=== PATIENT | male | born 1935 | race Caucasian/White ===

== ENCOUNTER 2016-03-03 01:34 | Emergency (ER) | payer OTHER ==
--- NOTE | 2016-03-03 01:51 | PDOC ---
History of Present Illness - General History Source: EMS <Drake Tony - Last Filed: 03/03/16 05:37> - General History Source: Patient, EMS, [facility] Records Exam Limitations: Clinical Condition - History of Present Illness Initial Comments: 03/03/16 02:01 The patient is a 80-year-old male, with a significant past medical history of hypertension, COPD, coronary artery disease, GERD, anxiety, and dementia, who presents to the emergency department via EMS sent from [facility] head laceration s/p unwitnessed fall this evening. Per patient, he did not experience any LOC secondary to head trauma. As per nursing staff, they heard a crash in the patients room and immediately came in, but they are unsure why he fell or what he hit his head on. Nursing staff report the patient was able to get right back up on his own, and was moving his head around after the fall. Once EMS arrived on scene, they placed a collar around his neck. The patient currently reports no pain. He denies any fever, chills, cough, headache , dizziness, or syncope. He denies chest pain, diaphoresis, palpitations, and shortness of breath. The patient reports he is currently taking aspirin. Allergies: Penicillins Past Surgical History: Appendectomy Social History: Non-smoker. Denies alcohol or drug use. PCP: Dr. Levar Alegria ([phone]) <Urvashi Ny - Last Filed: 03/03/16 05:48> - General Stated Complaint: FALL/LACERATION Time Seen by Provider: 03/03/16 01:50 Past History - Past Medical History Cardiac Disorders: Yes COPD: Yes Dementia: Yes GI Disorders: Yes HTN: Yes Psychiatric Problems: Yes (depressive, anxiety) - Surgical History Appendectomy: Yes - Psycho/Social/Smoking Cessation Hx Suicidal Ideation: No Smoking History: Unknown if ever smoked Have you smoked in the past 12 months: No Hx Alcohol Use: No Drug/Substance Use Hx: No Substance Use Type: None Hx Substance Use Treatment: No <Drake Tony - Last Filed: 03/03/16 05:37> <Urvashi Ny - Last Filed: 03/03/16 05:48> - Past Medical History Allergies/Adverse Reactions: Allergies Allergy/AdvReac Type Severity Reaction Status Date / Time Penicillins Allergy Verified 01/27/16 18:25 Home Medications: Ambulatory Orders Acetaminophen [Tylenol] 650 mg PO QID PRN 01/27/16 Aspirin [ASA -] 81 mg PO DAILY 01/27/16 Clonazepam [Klonopin -] 0.5 mg PO BID 01/27/16 Clotrimazole [Lotrimin -] 1 applic TP BID 01/27/16 Docusate Sodium [Colace -] 200 mg PO DAILY 01/27/16 Isosorbide Mononitrate [Imdur -] 30 mg PO DAILY 01/27/16 Omeprazole Magnesium [Prilosec] 20 mg PO DAILY 01/27/16 Propylene Glycol/Peg 400/Pf [Systane 0.3-0.4% Eye Drops] 2 each OP TID 01/27/16 Quetiapine Fumarate "Xr" [Seroquel XR] 12.5 mg PO DAILY 01/27/16 Quetiapine Fumarate [Seroquel -] 25 mg PO BID 01/27/16 Venlafaxine HCl ER [Effexor Xr -] 37.5 mg PO BID 01/27/16 Albuterol 0.083% Nebulizer Madeleine [Ventolin 0.083% Nebulizer Soln -] 1 amp NEB Q4H PRN #0 amp 02/02/16 Aa/Hydrolyzed Collagen, Whey [Lps Neutral Flavor Liquid] 30 ml PO TID 03/03/16 Oseltamivir Phosphate [Tamiflu] 75 mg PO DAILY 03/03/16 Review of Systems - Review of Systems Able to Perform ROS?: Yes (limited due to AMS) Comments:: 03/03/16 02:02 CONSTITUTIONAL: Absent: fever, chills, diaphoresis, generalized weakness, malaise, loss of appetite HEENT: Present: +Head laceration Absent: rhinorrhea, nasal congestion, throat pain, throat swelling, difficulty swallowing, mouth swelling, ear pain, eye pain, visual changes CARDIOVASCULAR: Absent: chest pain, syncope, palpitations, irregular heart rate, lightheadedness , peripheral edema RESPIRATORY: Absent: cough, shortness of breath, dyspnea with exertion, orthopnea, wheezing, stridor, hemoptysis GASTROINTESTINAL: Absent: abdominal pain, abdominal distension, nausea, vomiting, diarrhea, constipation, melena, hematochezia GENITOURINARY: Absent: dysuria, frequency, urgency, hesitancy, hematuria, flank pain, genital pain MUSCULOSKELETAL: Absent: myalgia, arthralgia, joint swelling SKIN: Absent: rash, itching, pallor HEMATOLOGIC/IMMUNOLOGIC: Absent: easy bleeding, easy bruising, lymphadenopathy, frequent infections ENDOCRINE: Absent: unexplained weight gain, unexplained weight loss, heat intolerance, cold intolerance NEUROLOGIC: Absent: headache, focal weakness or paresthesias, dizziness, unsteady gait, seizure, mental status changes, bladder or bowel incontinence PSYCHIATRIC: Absent: anxiety, depression, suicidal or homicidal ideation, hallucinations. <Urvashi Ny - Last Filed: 03/03/16 05:48> *Physical Exam - Physical Exam Comments: 03/03/16 02:02 GENERAL: Well developed, well nourished. Awake, alert and oriented to self. No acute distress. HEENT: +2cm laceration on back of the scalp with surrounding edema. PERRLA, EOMI. No conjunctival pallor. Sclera are non-icteric. Moist mucous membranes. Oropharynx is clear. NECK: Supple. Full ROM. No JVD. Carotid pulses 2+ and symmetric, without bruits. No thyromegaly. No lymphadenopathy. CARDIOVASCULAR: +Hypertensive. No murmurs, rubs, or gallops. Distal pulses are 2+ and symmetric. PULMONARY: No evidence of respiratory distress. Lungs clear to auscultation bilaterally. No wheezing, rales or rhonchi. ABDOMINAL: Soft. Non-tender. Non-distended. No rebound or guarding. No organomegaly. Normoactive bowel sounds. MUSCULOSKELETAL Normal range of motion at all joints. No bony deformities or tenderness. No CVA tenderness. EXTREMITIES: No cyanosis. No clubbing. No edema. No calf tenderness. SKIN: Warm and dry. Normal capillary refill. No rashes. No jaundice. NEUROLOGICAL: Alert, awake, appropriate. Cranial nerves 2-12 intact. No deficits to light touch and temperature in face, upper extremities and lower extremities. No motor deficits in the in face, upper extremities and lower extremities. Normoreflexic in the upper and lower extremities. Normal speech. Toes are down- going bilaterally. Gait is normal without ataxia. PSYCHIATRIC: Cooperative. Good eye contact. Appropriate mood and affect. <Urvashi Ny - Last Filed: 03/03/16 05:48> Procedures - Laceration/Wound Repair Head Wound Length: to 2.5 cm Wound Explored: clean Wound's Depth, Shape: superficial Irrigated w/ Saline: Yes Wound Repaired With: [place] (4) Progress: 03/03/16 04:59 Pt tolerated procedure well. <GilbertraDrake - Last Filed: 03/03/16 05:37> ED Treatment Course - LABORATORY CBC & Chemistry Diagram: 03/03/16 02:38 03/03/16 04:00 <ChavoDrake - Last Filed: 03/03/16 05:37> - LABORATORY CBC & Chemistry Diagram: 03/03/16 02:38 03/03/16 04:00 - RADIOLOGY Radiograph Interpretation: 03/03/16 05:44 EXAM: CXR INTERPRETED BY: Dr. Dinh REVIEWED BY: Dr. Tony IMPRESSION: Nonspecific elevation of left hemidiaphragm. Patchy left lower lobe opacities may represent atelectasis, aspiration and/or pneumonia. Coexisting small pleural effusion cannot be excluded. Age-indeterminate fracture deformity of right lateral sixth, seventh and eighth ribs. Correlate with physical exam. No pneumothorax. Nonspecific distended loops of bowel seen. EXAM: Pelvis Radiograph INTERPRETED BY: Dr. Dinh REVIEWED BY: Dr. Tony IMPRESSION: Diffuse osteopenia which limits assessment of nondisplaced fractures. Evaluation of sacrum is further limited due to overlying fecal content in the rectosigmoid region. Sequela of right hip arthroplasty. The femoral component of the prosthesis appears positioned within the acetabulum component. However, evaluation for prosthesis alignment is suboptimal due to patient rotation. Cerclage wires surrounding the prosthesis noted. Severely comminuted fracture deformity of the visualized proximal right femur with overlying callus formation. Acute on chronic fracture cannot be excluded. Age- indeterminate fracture of the right superior and inferior pubic rami. Arthrosis of the spine, bilateral sacroiliac joint and left hip. Possible constipation with fecal impaction. Correlate clinically. EXAM: Head CT INTERPRETED BY: Dr. Brasher REVIEWED BY: Dr. Tony IMPRESSION: No hemorrhage or fracture. EXAM: Cervical Spine CT without contrast INTERPRETED BY: Dr. Brasher REVIEWED BY: Dr. Tony IMPRESSION: There is no fracture or facet subluxation. No prevertebral hematoma or gross acute epidural abnormality. Multilevel spondylosis/disc-ridges and facet/uncovertebral arthropathy with mild presumed degenerative C3/4 retrolisthesis; alignment is otherwise anatomic for the visualized volume, from skull base to the visualized portion of T3/4, accounting for the degenerative ridging/calcifications. <Urvashi Ny - Last Filed: 03/03/16 05:48> Medical Decision Making - Medical Decision Making 03/03/16 05:00 Dr. Tony: The scribe's documentation has been prepared under my direction and personally reviewed by me in its entirery. I confirm that the note above accurately reflects all work, treatment, procedures, and medical decision making performed by me. 03/03/16 05:38 spoke to Isaiah (nurse) at the unit where pt lives at [facility]. Advised him that all studies including Ct scan of head and C-spine were negative. Baudilio placed to close wound. Pt to return to [facility] <Drake Tony - Last Filed: 03/03/16 05:37> *DC/Admit/Observation/Transfer - Discharge Dispostion Admit: No <Drake Tony - Last Filed: 03/03/16 05:37> - Attestations Scribe Attestion: 03/03/16 02:08 Documentation prepared by Urvashi Ny, acting as faculty i on call medical assistant for Drake Tony DO. <Urvashi Ny - Last Filed: 03/03/16 05:48> Diagnosis at time of Disposition: Fall Qualifiers: Encounter type: initial encounter Qualified Code(s): W19.XXXA - Unspecified fall, initial encounter Scalp laceration Qualifiers: Encounter type: initial encounter Qualified Code(s): S01.01XA - Laceration without foreign body of scalp, initial encounter - Discharge Dispostion Disposition: HOME Condition at time of disposition: Stable - Referrals Referrals: Levar Alegria [Primary Care Provider] - - Patient Instructions Printed Discharge Instructions: DI for Closed Head Injury, DI for Laceration Repair -- Baudilio Additional Instructions: Keep wound clean and dry. Wash with soap and water. Have baudilio removed in 5- 7 days
[2016-03-03 02:07] VITALS: BP 176/84; PULSE 74; TEMP 97.9; BMI 19.3
[2016-03-03 02:51] LABS: BASOPHIL 0.3 % (0-2.0); EOSINOPHIL 0.6 % (0-4.5); MCHC 33.9 g/dl (32.0-35.9); MEAN CELL VOLUME 97.1 fl (80-96); MEAN PLT VOLUME 8.8 fl (7.5-11.1); NEUTROPHILS 71.1 % (42.8-82.8); PLATELET COUNT 191 K/MM3 (134-434); RDW 13.7 % (11.9-15.9); WHITE BLOOD COUNT 10.6 K/mm3 (4.0-10.0)
[2016-03-03 03:42] LABS: INR 1.27 (0.82-1.09)
[2016-03-03] MEDS ORDERED: morphine CARPU-JECT 2 MG/1 ML DISP.SYRIN IVPUSH ONE (03:56)
[2016-03-03] MEDS ORDERED: FUROSEMIDE 40 MG/4 ML INJECTABLE VIAL IVPUSH ONE (03:56)
[2016-03-03] MEDS ORDERED: morphine CARPU-JECT 2 MG/1 ML DISP.SYRIN ONE (04:02)
[2016-03-03] MEDS ORDERED: FUROSEMIDE 40 MG/4 ML INJECTABLE VIAL ONE (04:03)
[2016-03-03 04:47] LABS: ALBUMIN 3.7 g/dl (3.4-5.0); ALK PHOS 94 U/L (45-117); ANION GAP 10 (8-16); BILIRUBIN,TOTAL 1.1 mg/dL (0.2-1.0); CALCIUM 9.1 mg/dL (8.5-10.1); CO2 31 mmol/L (21-32); CREATININE 0.8 mg/dL (0.7-1.3); GLUCOSE,RANDOM 86 mg/dL (74-106); SGOT/AST 22 U/L (15-37); SGPT/ALT 14 U/L (12-78); TOT PROT 7.2 g/dl (6.4-8.2)
== END 2016-03-03 06:55 | disposition home or self-care (01) ==
LOC: JER 01:34
PROC: 0HQ0XZZ Repair Scalp Skin, External Approach (ICD-10-PCS; principal; 2016-03-03)
PROC: 3E033NZ Introduction of Analgesics, Hypnotics, Sedatives into Peripheral Vein, Percutaneous Approach (ICD-10-PCS; 2016-03-03)
PROC: 3E033GC Introduction of Other Therapeutic Substance into Peripheral Vein, Percutaneous Approach (ICD-10-PCS; 2016-03-03)
DX: S01.01XA Laceration without foreign body of scalp, initial encounter (principal); I10 Essential (primary) hypertension; J44.9 Chronic obstructive pulmonary disease, unspecified; F41.8 Other specified anxiety disorders; F03.90 Unspecified dementia, unspecified severity, without behavioral disturbance, psychotic disturbance, mood disturbance, and anxiety; W18.39XA Other fall on same level, initial encounter; Y93.89 Activity, other specified; Y92.122 Bedroom in nursing home as the place of occurrence of the external cause
CPT/HCPCS: 12001-25; 36415; 70450-TC; 71010-TC; 72125-TC; 72170-TC; 80053; 85025; 85610; 86850; 86900; 86901; 96374; 96375; 99281-25

== ENCOUNTER 2017-04-12 20:08 | Observation (INO) | payer OTHER ==
--- NOTE | 2017-04-12 20:18 | PDOC ---
History of Present Illness - General History Source: Patient, Old Records Exam Limitations: No Limitations - History of Present Illness Initial Comments: 04/12/17 21:55 Patient is an 80 year old male with a significant past medical history of hypertension, COPD, coronary artery disease, GERD, anxiety, and dementia, who presents to the ED s/p fall that occurred just prior to ED arrival. Patient reports attempting to get out of bed tonight when he lost his balance leading him to fall onto the floor causing immediate pain. As per [facility] staff, patient's fall was unwitnessed but was sent to the ED for further evaluation. Patient does not state if he experienced any head trauma due to fall. Denies chest pain, Sob. Denies nausea, vomiting. Denies fevers, chills. Denies contact with sick individuals, out of state travelling. Denies any other symptoms. Allergies: Penicillins Past Surgical History: Appendectomy Social History: Non-smoker. Denies alcohol or drug use. PCP: Dr. Levar Alegria ([phone]) <Israel Gao - Last Filed: 04/12/17 21:54> <Comfort Laughlin - Last Filed: 04/13/17 05:09> - General Chief Complaint: Injury Stated Complaint: FALL Past History <Israel Gao - Last Filed: 04/12/17 21:54> - Past Medical History Cardiac Disorders: Yes COPD: Yes Dementia: Yes GI Disorders: Yes HTN: Yes Psychiatric Problems: Yes (depressive, anxiety) - Surgical History Appendectomy: Yes - Suicide/Smoking/Psychosocial Hx Smoking History: Never smoked Have you smoked in the past 12 months: No Information on smoking cessation initiated: No Hx Alcohol Use: No Drug/Substance Use Hx: No Substance Use Type: None Hx Substance Use Treatment: No <Comfort Laughlin - Last Filed: 04/13/17 05:09> - Past Medical History Allergies/Adverse Reactions: Allergies Allergy/AdvReac Type Severity Reaction Status Date / Time Penicillins Allergy Verified 04/12/17 20:13 Home Medications: Ambulatory Orders Acetaminophen [Tylenol] 650 mg PO QID PRN 01/27/16 Aspirin [ASA -] 81 mg PO DAILY 01/27/16 Docusate Sodium [Colace -] 200 mg PO HS 12/15/16 Isosorbide Mononitrate [Imdur -] 30 mg PO DAILY 01/27/16 Omeprazole Magnesium [Prilosec] 20 mg PO DAILY 01/27/16 Quetiapine Fumarate [Seroquel -] 25 mg PO HS 01/27/16 Venlafaxine HCl ER [Effexor Xr -] 37.5 mg PO BID 01/27/16 clonazePAM [Klonopin -] 0.5 mg PO BID 01/27/16 Albuterol 0.083% Nebulizer Madeleine [Ventolin 0.083% Nebulizer Soln -] 1 amp NEB Q4H PRN #0 amp 02/02/16 Aa/Hydrolyzed Collagen, Whey [Lps Neutral Flavor Liquid] 30 ml PO TID 03/03/16 Cholecalciferol (Vitamin D3) [Vitamin D3 -] 1,000 unit PO DAILY 04/12/17 Propylene Glycol/Peg 400/Pf [Systane 0.3-0.4% Eye Drops] 2 drop OU TID 04/12/17 Review of Systems - Review of Systems Able to Perform ROS?: Yes Comments:: 04/12/17 21:55 GENERAL/CONSTITUTIONAL: No fever or chills. No weakness. HEAD, EYES, EARS, NOSE AND THROAT: No change in vision. No ear pain or discharge. No sore throat. CARDIOVASCULAR: No chest pain or shortness of breath. RESPIRATORY: +Coughing. No wheezing, or hemoptysis. GASTROINTESTINAL: No nausea, vomiting, diarrhea or constipation. GENITOURINARY: No dysuria, frequency, or change in urination. MUSCULOSKELETAL: No joint or muscle swelling or pain. No neck or back pain. SKIN:+Bilateral leg bruising. +Bilateral chest bruising. NEUROLOGIC: No headache, vertigo, loss of consciousness, or change in strength/ sensation. ENDOCRINE: No increased thirst. No abnormal weight change. HEMATOLOGIC/LYMPHATIC: No anemia, easy bleeding, or history of blood clots. ALLERGIC/IMMUNOLOGIC: No hives or skin allergy. All Other Systems: Reviewed and Negative <Israel Gao - Last Filed: 04/12/17 21:54> *Physical Exam - Vital Signs Last Vital Signs Temp Pulse Resp BP Pulse Ox 97.3 F L 71 20 104/72 97 04/12/17 20:13 04/12/17 20:13 04/12/17 20:13 04/12/17 20:13 04/12/17 20:13 - Physical Exam Comments: 04/12/17 21:55 GENERAL: +Cachectic Awake, alert, and fully oriented, in no acute distress HEAD: No signs of trauma EYES: PERRLA, EOMI, sclera anicteric, conjunctiva clear ENT: +Dry mouth. Auricles normal inspection, hearing grossly normal, nares patent, oropharynx clear without exudates. NECK: Normal ROM, supple, no lymphadenopathy, JVD, or masses LUNGS: Breath sounds equal, clear to auscultation bilaterally. No wheezes, and no crackles HEART: +referred abdominal sounds in left chest. Regular rate and rhythm, normal S1 and S2, no murmurs, rubs or gallops ABDOMEN: Soft, nontender, normoactive bowel sounds. No guarding, no rebound. No masses PELVIS: +Prominent hip bones EXTREMITIES: +Contractures. +Right knee arthritis. +Right medial finley bruising. Normal range of motion, no edema. No clubbing or cyanosis. No cords, erythema, or tenderness NEUROLOGICAL: +AAOx2 Cranial nerves II through XII grossly intact. Normal speech, normal gait SKIN: +Bilateral chest bruises. Warm, Dry, normal turgor. <Israel Gao - Last Filed: 04/12/17 21:54> - Vital Signs Last Vital Signs Temp Pulse Resp BP Pulse Ox 97.3 F L 71 20 104/72 97 04/12/17 20:13 04/12/17 20:13 04/12/17 20:13 04/12/17 20:13 04/12/17 20:13 <Comfort Laughlin - Last Filed: 04/13/17 05:09> ED Treatment Course - LABORATORY CBC & Chemistry Diagram: 04/12/17 22:11 04/12/17 22:11 <Comfort Laughlin - Last Filed: 04/13/17 05:09> Medical Decision Making - Medical Decision Making 04/12/17 21:24 Pt comes after fall at the [facility]. He is distressed, as he realizes that he is stuck in bed forever, with leg contractures and cannot walk. He states "I am broken," and "I cannot walk." Pt has no complaint of pain anywhere specific on his body. He has old bruises that are greenish yellow in various stages of healing. Pt has no specifica complaints of pain. We will get basic labs and hydrate patient. If labs are normal, he may return to the [facility]. He is alert to person and time. 04/13/17 05:07 Pt has a UTI, as well as elevated troponin. I ordered a troponin originally, as pt was found on the floor at the [facility], and it was unclear to me if he had a cardiac event. Pt has a relatively normal ST-T wave in all leads. He has an unspecified interventricular conduction delay. 04/13/17 05:08 Pt has been admitted to the hospitalist <Comfort Laughlin - Last Filed: 04/13/17 05:09> *DC/Admit/Observation/Transfer - Attestations Scribe Attestion: 04/12/17 21:55 Documentation prepared by Israel Gao, acting as expert medical writer for Comfort Laughlin MD/DO. <Israel Gao - Last Filed: 04/12/17 21:54> - Discharge Dispostion Admit: Yes <Comfort Laughlin - Last Filed: 04/13/17 05:09> Diagnosis at time of Disposition: UTI (urinary tract infection), Elevated troponin, Syncope - Discharge Dispostion Condition at time of disposition: Poor
[2017-04-12] MEDS ORDERED: SODIUM CHLORIDE 0.9% 500 ML INFUS.BAG IV ONE (21:35)
[2017-04-12 22:23] LABS: BASO % 0.4 % (0-2.0); EOS % 0.4 % (0-4.5); HEMATOCRIT 46.8 % (35.4-49); HEMOGLOBIN 15.8 GM/dL (11.7-16.9); LYMPH % 19.7 % (8-40); MCHC 33.8 g/dl (32.0-35.9); MEAN CELL VOLUME 100.5 fl (80-96); MONO % 9.3 % (3.8-10.2); NEUT % 70.2 % (42.8-82.8); PLATELET COUNT 227 K/MM3 (134-434); RBC 4.66 M/mm3 (4.00-5.60); RDW 14.5 % (11.9-15.9); WHITE BLOOD COUNT 11.3 K/mm3 (4.0-10.0)
[2017-04-12 22:39] LABS: URINE APPEARANCE CLOUDY; URINE BLOOD NEGATIVE (NEGATIVE); URINE COLOR AMBER; URINE GLUCOSE (UA) NEGATIVE (NEGATIVE); URINE KETONE TRACE (NEGATIVE); URINE NITRITE NEGATIVE (NEGATIVE); URINE UROBILINOGEN 4.0 E.U/dl mg/dL (0.2-1.0)
[2017-04-12 22:42] LABS: URINE LEUK ESTERASE 3+ (NEGATIVE); URINE PROTEIN 1+ (NEGATIVE)
[2017-04-12 22:43] LABS: EPI CELLS RARE /HPF (FEW); URINE BACTERIA RARE /hpf (NONE SEEN); URINE HYALINE CAST 9 /lpf; URINE MUCUS RARE
[2017-04-12 22:50] LABS: ALBUMIN 3.6 g/dl (3.4-5.0); ALK PHOS 96 U/L (45-117); ANION GAP 12 (8-16); BLOOD UREA NITROGEN 38 mg/dL (7-18); CALCIUM 9.2 mg/dL (8.5-10.1); CHLORIDE 106 mmol/L (98-107); CO2 26 mmol/L (21-32); CREATININE 1.3 mg/dL (0.7-1.3); GLUCOSE,RANDOM 106 mg/dL (74-106); SGPT/ALT 13 U/L (12-78); SODIUM 144 mmol/L (136-145); TOT PROT 7.7 g/dl (6.4-8.2)
[2017-04-12 22:52] LABS: POTASSIUM 4.4 mmol/L (3.5-5.1); SGOT/AST 28 U/L (15-37)
--- NOTE | 2017-04-13 01:34 | HP ---
CHIEF COMPLAINT: S/p unwitnessed fall x 1 day PCP: Dr. Levar Tavera HISTORY OF PRESENT ILLNESS: Pt is an 80 yo M with a signif PMHx of dementia and anxiety, HTN, COPD (2-3L O2), CAD, GERD, BIBEMS from formerly [facility] s/p unwitnessed fall today. There was no one by the bedside and pt initially did not know why he was brought to hospital. Pt acknowledged a hx of repeated falls due to his being "crippled". He was however unable to expand on the etiology of his paresis or recall the recent fall. Pt at baseline uses a wheelchair to ambulate. He endorsed dysuria, but denied fever, cough or chest pain. Pt was said to be attempting to get out of bed when he fell. Based on medical records , it was an unwitnessed fall and it is unknown whether or not he hit his head. Based on [place] records, Pt is on ASA. Pt is DNR- based on records from the [place]. ER course was notable for: (1) WBC- 11.3, trops-0.13, Tmax-97.3, 71, 104/72, NC (2) BUN/Cr-38/1.3, UA-3+ LE, 448 WBC (3)iv normal saline, iv levoflox 500mg given (4) EKG- Sinus rhythm with 1st degree AV block, QTc-469 Recent Travel: None PAST MEDICAL HISTORY: dementia and anxiety, HTN, COPD, CAD, GERD PAST SURGICAL HISTORY: Appendectomy Social History: Smoking: None Alcohol:None Drugs: None Family History: Allergies Penicillins Allergy (Verified 04/12/17 20:13) HOME MEDICATIONS: Home Medications Medication Instructions Recorded Acetaminophen [Tylenol] 650 mg PO QID PRN 01/27/16 Aspirin [ASA -] 81 mg PO DAILY 01/27/16 Docusate Sodium [Colace -] 200 mg PO HS 01/27/16 Isosorbide Mononitrate [Imdur -] 30 mg PO DAILY 01/27/16 Omeprazole Magnesium [Prilosec] 20 mg PO DAILY 01/27/16 Quetiapine Fumarate [Seroquel -] 25 mg PO HS 01/27/16 Venlafaxine HCl ER [Effexor Xr -] 37.5 mg PO BID 01/27/16 clonazePAM [Klonopin -] 0.5 mg PO BID 01/27/16 Albuterol 0.083% Nebulizer Madeleine 1 amp NEB Q4H PRN #0 amp 02/02/16 [Ventolin 0.083% Nebulizer Soln -] Aa/Hydrolyzed Collagen, Whey [Lps 30 ml PO TID 03/03/16 Neutral Flavor Liquid] Cholecalciferol (Vitamin D3) 1,000 unit PO DAILY 04/12/17 [Vitamin D3 -] Propylene Glycol/Peg 400/Pf 2 drop OU TID 04/12/17 [Systane 0.3-0.4% Eye Drops] REVIEW OF SYSTEMS CONSTITUTIONAL: Absent: fever, chills, diaphoresis, generalized weakness, malaise, loss of appetite, weight change HEENT: Absent: rhinorrhea, nasal congestion, throat pain, throat swelling, difficulty swallowing, mouth swelling, ear pain, eye pain, visual changes CARDIOVASCULAR: Absent: chest pain, syncope, palpitations, irregular heart rate, lightheadedness , peripheral edema RESPIRATORY: Absent: cough, shortness of breath, dyspnea with exertion, orthopnea, wheezing, stridor, hemoptysis GASTROINTESTINAL: Absent: abdominal pain, abdominal distension, nausea, vomiting, diarrhea, constipation, melena, hematochezia GENITOURINARY: Absent: dysuria, frequency, urgency, hesitancy, hematuria, flank pain, genital pain MUSCULOSKELETAL: Absent: myalgia, arthralgia, joint swelling, back pain, neck pain SKIN: Absent: rash, itching, pallor HEMATOLOGIC/IMMUNOLOGIC: Absent: easy bleeding, easy bruising, lymphadenopathy, frequent infections ENDOCRINE: Absent: unexplained weight gain, unexplained weight loss, heat intolerance, cold intolerance NEUROLOGIC: Absent: headache, focal weakness or paresthesias, dizziness, unsteady gait, seizure, mental status changes, bladder or bowel incontinence PSYCHIATRIC: Absent: anxiety, depression, suicidal or homicidal ideation, hallucinations. PHYSICAL EXAMINATION Vital Signs - 24 hr 04/12/17 04/12/17 20:13 22:15 Temperature 97.3 F L Pulse Rate 71 Respiratory 20 Rate Blood Pressure 104/72 O2 Sat by Pulse 97 94 L Oximetry (%) GENERAL: Awake, alert, and oriented to person, to place, in no acute distress. No tender bony prominences HEAD: Normal with no signs of trauma. EYES: Pupils equal, round and reactive to light, extraocular movements intact, sclera anicteric, conjunctiva clear. EARS, NOSE, THROAT: oropharynx clear without exudates. Moist mucous membranes. NECK: no JVD, or masses. LUNGS: Breath sounds equal, clear to auscultation bilaterally. No wheezes, and no crackles. HEART: Regular rate and rhythm, normal S1 and S2 without murmur, rub or gallop. ABDOMEN: R flank greenish/erythematous bruise, Scaphoid abdomen, nontender, bowel sounds+ MUSCULOSKELETAL: Increased tone bilateral LE. Tender, warm, swollen R finley, fluctuant 5mmx 3mm. UPPER EXTREMITIES: R forearm, greenish bruise 2+ pulses, warm, well-perfused. No peripheral edema. Strength 5/5, normal tone bilaterally. Normal sensation LOWER EXTREMITIES: 2+ pulses, warm, well-perfused. No calf tenderness. No peripheral edema. Normal sensation. Increased tone bilateral LE. Tender, warm, swollen R finley,fluctuant 5mmx 3mm. NEUROLOGICAL: No facial droop. Normal speech. gait not observed. PSYCHIATRIC: Unable to assess Laboratory Results - last 24 hr 04/12/17 04/12/17 04/12/17 22:11 22:11 22:11 WBC 11.3 H RBC 4.66 Hgb 15.8 Hct 46.8 MCV 100.5 H MCH 34.0 H MCHC 33.8 RDW 14.5 Plt Count 227 MPV 9.0 Neutrophils % 70.2 Lymphocytes % 19.7 Monocytes % 9.3 Eosinophils % 0.4 Basophils % 0.4 Sodium 144 Potassium 4.4 Chloride 106 Carbon Dioxide 26 Anion Gap 12 BUN 38 H D Creatinine 1.3 D Creat Clearance w eGFR 52.72 Random Glucose 106 D Calcium 9.2 Total Bilirubin 1.0 AST 28 D ALT 13 Alkaline Phosphatase 96 Creatine Kinase 94 Troponin I 0.13 H D Total Protein 7.7 Albumin 3.6 Urine Color Urine Appearance Urine pH Ur Specific [place] Urine Protein Urine Glucose (UA) Urine Ketones Urine Blood Urine Nitrite Urine Bilirubin Urine Urobilinogen Ur Leukocyte Esterase Urine WBC (Auto) Urine RBC (Auto) Ur Epithelial Cells Urine Bacteria Hyaline Casts Urine Mucus 04/12/17 22:30 WBC RBC Hgb Hct MCV MCH MCHC RDW Plt Count MPV Neutrophils % Lymphocytes % Monocytes % Eosinophils % Basophils % Sodium Potassium Chloride Carbon Dioxide Anion Gap BUN Creatinine Creat Clearance w eGFR Random Glucose Calcium Total Bilirubin AST ALT Alkaline Phosphatase Creatine Kinase Troponin I Total Protein Albumin Urine Color [place] Urine Appearance Cloudy Urine pH 5.0 Ur Specific [place] 1.018 Urine Protein 1+ H Urine Glucose (UA) Negative Urine Ketones Trace H Urine Blood Negative Urine Nitrite Negative Urine Bilirubin 2.0 Urine Urobilinogen 4.0 e.u/dl Ur Leukocyte Esterase 3+ H Urine WBC (Auto) 448 Urine RBC (Auto) 10 Ur Epithelial Cells Rare Urine Bacteria Rare Hyaline Casts 9 Urine Mucus Rare Ambulatory Orders Acetaminophen [Tylenol] 650 mg PO QID PRN 01/27/16 Aspirin [ASA -] 81 mg PO DAILY 01/27/16 Docusate Sodium [Colace -] 200 mg PO HS 01/27/16 Isosorbide Mononitrate [Imdur -] 30 mg PO DAILY 01/27/16 Omeprazole Magnesium [Prilosec] 20 mg PO DAILY 01/27/16 Quetiapine Fumarate [Seroquel -] 25 mg PO HS 01/27/16 Venlafaxine HCl ER [Effexor Xr -] 37.5 mg PO BID 01/27/16 clonazePAM [Klonopin -] 0.5 mg PO BID 01/27/16 Albuterol 0.083% Nebulizer Madeleine [Ventolin 0.083% Nebulizer Soln -] 1 amp NEB Q4H PRN #0 amp 02/02/16 Aa/Hydrolyzed Collagen, Whey [Lps Neutral Flavor Liquid] 30 ml PO TID 03/03/16 Cholecalciferol (Vitamin D3) [Vitamin D3 -] 1,000 unit PO DAILY 04/12/17 Propylene Glycol/Peg 400/Pf [Systane 0.3-0.4% Eye Drops] 2 drop OU TID 04/12/17 ASSESSMENT/PLAN: Pt is an 80 yo M with a signif PMHx of dementia and anxiety, HTN, COPD, CAD, GERD, BIBEMS from formerly [facility] s/p unwitnessed fall today. Unwitnessed fall Demented pt, unclear hx, on ASA R mid-finley swelling and tenderness Wheelchair bound CT head stat EKG - no acute ischemic changes R leg xray (tibia and fibular R/o fracture) RLE duplex US- R/O DVT Coags, CBC, CMP Iv Normal saline @75mls/hr Creatinine Kinase Fall precautions Elevated trops: 0.13 EKG - no acute ischemic changes, Could be due to demand ischemia in setting of CAROLANN/UTI Trend UTI: Dysuria+ UA-3+ LE, 448 WBC Received iv levoflox 500mg in ED Continue with 1g ceftriaxone Q24H Urine cx CAROLANN: BUN/Cr-38/1.3 Likely due to dehydration with UTI Iv Normal saline@75/ml BMP Dementia and anxiety: Quetiapine Fumarate [Seroquel -] 25 mg PO HS Venlafaxine HCl ER [Effexor Xr -] 37.5 mg PO BID clonazePAM [Klonopin -] 0.5 mg PO BID HTN: Relatively hypotensive Rehydrate NS@75 COPD: NC-2-3L oxygen Not in exacerbation Albuterol 0.083% nebs PRN CAD: ASA 81 daily GERD: Omeprazole Magnesium [Prilosec] 20 mg PO DAILY FEN: NS Monitor lytes and replete as needed Sodium restricted PPx: Heparin Sub Q 5000iu Q8H Dispo: Tele-obs Visit type - Emergency Visit Emergency Visit: Yes ED Registration Date: 04/13/17 Care time: The patient presented to the Emergency Department on the above date and was hospitalized for further evaluation of their emergent condition. - New Patient This patient is new to me today: Yes Date on this admission: 04/13/17 - Critical Care Critical Care patient: No Hospitalist Screening - Colonoscopy Questionnaire Colonoscopy Questionnaire: Colonoscopy Questionnaire - Patient: 50 - 75 years old and never had a screening colonoscopy: No History of colon or rectal polyps, or CA: Unknown History of IBD, Crohn's disease or UC: Unknown History of abdominal radiation therapy as a child: Unknown - Relative: 1 with colon or rectal CA, or polyps at age 60 or younger: Unknown Colon or rectal CA diagnosed at age 45 or younger: Unknown Multiple relatives with colon or rectal CA: Unknown - Outcome: Screening Result: Negative Screen
[2017-04-13] MEDS ORDERED: ACETAMINOPHEN 325 MG TABLET (FP) PO PRN (03:20)
[2017-04-13] MEDS ORDERED: ALBUTEROL SO4 0.083% IH SOL 2.5 MG/3 ML VIAL.NEB. NEB PRN (03:20)
[2017-04-13 04:38] VITALS: BMI 17.5
[2017-04-13] MEDS: SODIUM CHLORIDE 0.45% 1,000 ML IV SCH (04:48)
[2017-04-13] MEDS: HEPARIN NA (PORCINE) 5,000 UNITS/ML 1ML VIAL SQ SCH ×3 (05:01→21:15)
[2017-04-13] MEDS: ARTIFICIAL TEARS (POLYVINYL ALCOHOL 1.4%) OPTH DROPS OU SCH ×3 (05:01→21:16)
--- NOTE | 2017-04-13 05:18 | PN ---
Teaching Attending Note Name of Resident: Azalia Lopez ATTENDING PHYSICIAN STATEMENT I saw and evaluated the patient. Chart, data, imaging reviewed. I reviewed the resident's note and discussed the case with the resident. I agree with the resident's findings and plan as documented. SUBJECTIVE: 80 yo demented man with a PMHx of dementia and anxiety, HTN, COPD, CAD, GERD, BIBEMS from [facility] s/p unwitnessed fall 04/12. Patient is baseline not ambulatory and gets around via wheelchair. He did not remember fall and cannot recall if there was LOC. He denied any chest pain or shortness of breath. Pt is DNR- based on records from the [place]. He c/o some dysuria and received levofloxacin 500mg IV in ER OBJECTIVE: Last Vital Signs Temp Pulse Resp BP Pulse Ox 97.5 F L 58 L 20 127/59 97 04/13/17 03:45 04/13/17 03:45 04/13/17 03:45 04/13/17 03:45 04/13/17 03:45 general - nad, lying in bed comfortably heent- no signs of trauma to head neck -no neck masses or jvd cv-s1+s2+ rrr chest -cta b/l abdomen- soft, BS+, not distended ext- right leg tenderness and some swelling Abnormal Lab Results 04/12/17 04/12/17 04/12/17 22:11 22:11 22:11 WBC 11.3 H MCV 100.5 H MCH 34.0 H BUN 38 H D Troponin I 0.13 H D Urine Protein Urine Ketones Ur Leukocyte Esterase 04/12/17 22:30 WBC MCV MCH BUN Troponin I Urine Protein 1+ H Urine Ketones Trace H Ur Leukocyte Esterase 3+ H EKG- Sinus rhythm with 1st degree AV block, QTc-[address] -no acute intracranial pathology ASSESSMENT AND PLAN: #81yo man with dementia s/p unwitnessed fall at [facility] with right leg swelling, head CT wnl. Should r/o fracture of right leg. Mildly positive troponin but no chest pain or shortness of breath and EKG only showing first degress AV block but no evidence of ischemia. Doubt ACS. -admit to tele observation -xray of right leg to evaluate for fracture -pain control -trend troponin -fall precautions -bed rest #UTI -positive UA and wbc 11 on cbc - s/p levofloxacin in ER -send urine culture -ceftriaxone 1g IV q24hrs -DVT ppx- heparin sc
[2017-04-13] MEDS ORDERED: PATIENT'S OWN MEDICATION (NON-FORMULARY) (Aa/Hydrolyzed Collagen, Whey [Lps Neutral Flavor PO SCH (06:00)
[2017-04-13 07:00] LABS: BASO % 0.4 % (0-2.0); HEMATOCRIT 46.4 % (35.4-49); HEMOGLOBIN 15.5 GM/dL (11.7-16.9); LYMPH % 20.8 % (8-40); MCH 33.9 pg (25.7-33.7); MCHC 33.4 g/dl (32.0-35.9); MEAN CELL VOLUME 101.4 fl (80-96); MEAN PLT VOLUME 9.3 fl (7.5-11.1); MONO % 8.6 % (3.8-10.2); NEUT % 69.2 % (42.8-82.8); PLATELET COUNT 219 K/MM3 (134-434); RBC 4.57 M/mm3 (4.00-5.60); RDW 14.7 % (11.9-15.9); WHITE BLOOD COUNT 11.7 K/mm3 (4.0-10.0)
[2017-04-13 07:09] LABS: INR 1.22 (0.82-1.09); PROTHROMBIN TIME (PATIENT) 13.8 SEC (9.98-11.88)
[2017-04-13 07:11] LABS: ACTIVATED PTT 25.9 SECONDS (26.9-34.4)
[2017-04-13 08:16] LABS: CHLORIDE 109 mmol/L (98-107); SODIUM 146 mmol/L (136-145)
[2017-04-13 08:27] LABS: ALBUMIN 3.4 g/dl (3.4-5.0); ALK PHOS 90 U/L (45-117); ANION GAP 10 (8-16); BILIRUBIN,TOTAL 1.4 mg/dL (0.2-1.0); BLOOD UREA NITROGEN 40 mg/dL (7-18); CALCIUM 8.4 mg/dL (8.5-10.1); CO2 27 mmol/L (21-32); GLUCOSE,RANDOM 56 mg/dL (74-106); PHOSPHOROUS 3.2 mg/dL (2.5-4.9); SGPT/ALT 11 U/L (12-78); TOT PROT 7.1 g/dl (6.4-8.2)
[2017-04-13 08:30] LABS: MAGNESIUM 2.1 mg/dL (1.8-2.4); POTASSIUM 4.3 mmol/L (3.5-5.1)
[2017-04-13 08:31] LABS: SGOT/AST 26 U/L (15-37)
--- NOTE | 2017-04-13 09:34 | PN ---
Progress Note, Physician Chief Complaint: Patient denies any complaints remained afebrile History of Present Illness: 80 yo M with a significant PMHx of dementia and anxiety, HTN, COPD (2-3L O2), CAD, GERD, BIBEMS from [facility] s/p unwitnessed fall , UA + for LE WBC - Current Medication List Current Medications: Active Medications Acetaminophen (Tylenol -) 650 mg PO Q6H PRN PRN Reason: PAIN Albuterol Sulfate (Ventolin 0.083% Nebulizer Soln -) 1 amp NEB Q4H PRN PRN Reason: SHORT OF BREATH/WHEEZING Artificial Tears (Artificial Tears) 2 drop OU TID [facility] Last Admin: 04/13/17 05:01 Dose: 2 drop Aspirin (Asa -) 81 mg PO DAILY [facility] Cholecalciferol (Vitamin D3 -) 1,000 unit PO DAILY [facility] Clonazepam (Klonopin -) 0.5 mg PO BID [facility] Docusate Sodium (Colace -) 200 mg PO HS [facility] Heparin Sodium (Porcine) (Heparin -) 5,000 unit SQ TID [facility] Last Admin: 04/13/17 05:01 Dose: 5,000 unit Sodium Chloride (1/2 Normal Saline) 1,000 mls @ 75 mls/hr IV ASDIR [facility] Last Admin: 04/13/17 04:48 Dose: 75 mls/hr CEFTRIAXONE 1 G/50 ML PREMIX (Ceftriaxone 1 Gm-D5w Bag) 50 mls @ 100 mls/hr IVPB [facility] Stop: 04/19/17 22:29 Isosorbide Mononitrate (Imdur -) 30 mg PO DAILY [facility] Pantoprazole Sodium (Protonix -) 20 mg PO DAILY [facility] Quetiapine Fumarate (Seroquel -) 25 mg PO HS [facility] Venlafaxine HCl (Effexor Xr -) 37.5 mg PO BID [facility] - Objective Vital Signs: Vital Signs Temperature 97.5 F L 04/13/17 03:45 Pulse Rate 58 L 04/13/17 03:45 Respiratory Rate 20 04/13/17 03:45 Blood Pressure 127/59 04/13/17 03:45 O2 Sat by Pulse Oximetry (%) 97 04/13/17 03:45 Elderly frail man not in distress oriented to self HEENT: Mm moist, + anemia, PERRLA EOMI CHEST: Minimal basal crepts CVS: S1S2 R no m/g/r ABD: No distention, no suprapubic tenderness EXTL multiple bruises , Pulses + PANTOGRAPH I ENGRAVER: Alert oriented to self mooing all extremities Labs: CBC, BMP 04/13/17 05:35 04/13/17 05:35 INR, PTT INR 1.22 (0.82-1.09) H 04/13/17 05:35 - ....Imaging Ultrasound: Report Reviewed Problem List - Problems (1) UTI (urinary tract infection) Assessment/Plan: Frequent fall present after a mechanical fall UA + LE and WBC F/U Cultures cont Ceftrixone, Tylenol for fever. Code(s): N39.0 - URINARY TRACT INFECTION, SITE NOT SPECIFIED (2) Fall Assessment/Plan: Poor Gait instability, fall precautions, skeltal survey negative for fracture Code(s): W19.XXXA - UNSPECIFIED FALL, INITIAL ENCOUNTER Qualifiers: Encounter type: initial encounter Qualified Code(s): W19.XXXA - Unspecified fall, initial encounter (3) HTN (hypertension) Assessment/Plan: Well controlled cont home meds Code(s): I10 - ESSENTIAL (PRIMARY) HYPERTENSION (4) Dehydration Assessment/Plan: Improving after IV Hydration Code(s): E86.0 - DEHYDRATION (5) CAD (coronary artery disease) Assessment/Plan: Mild elevation of troponin no EKG changes can be stress induced considering advanced age and poor general health will cont home meds Code(s): I25.10 - ATHSCL HEART DISEASE OF [place] CORONARY ARTERY W/O ANG PCTRS (6) COPD (chronic obstructive pulmonary disease) Assessment/Plan: Cont albuterol MDI Code(s): J44.9 - CHRONIC OBSTRUCTIVE PULMONARY DISEASE, UNSPECIFIED (7) Hypoglycemia Assessment/Plan: switch to D5 Code(s): E16.2 - HYPOGLYCEMIA, UNSPECIFIED
--- NOTE | 2017-04-13 10:01 | EKG ---
Test Reason : Blood Pressure : / mmHG Vent. Rate : 066 BPM Atrial Rate : 066 BPM P-R Int : 282 ms QRS Dur : 168 ms QT Int : 448 ms P-R-T Axes : 057 029 060 degrees QTc Int : 469 ms SINUS RHYTHM WITH 1ST DEGREE A-V BLOCK RIGHT BUNDLE BRANCH BLOCK Confirmed by GIFTY SAAVEDRA MD ([id number]) on 04/13/2017 10:00:57 AM Referred By: Confirmed By:GIFTY SAAVEDRA MD
[2017-04-13] MEDS ORDERED: CEFTRIAXONE 1 G/50 ML PREMIX 50 ML IVPB SCH ×2 (10:45→22:00)
[2017-04-13] MEDS: D5-1/2NS+10 MEQ KCL - 10 MEQ/1,000 ML INFUS.BAG IV SCH (11:38)
[2017-04-13] MEDS ORDERED: PT OWN MED DRAWER 7, Y5N ONE ×2 (11:47→21:09)
[2017-04-13] MEDS: ISOSORBIDE MONONITRATE 30 MG TAB.SR.24H (FP) PO SCH (11:48)
[2017-04-13] MEDS: ASPIRIN 81 MG CHEWABLE TABLETS PO SCH (11:48)
[2017-04-13] MEDS: PANTOPRAZOLE 20 MG TABLET (FP) PO SCH (11:49)
[2017-04-13] MEDS: CHOLECALCIFEROL (VITAMIN D3) 1,000 UNIT TABLET (FP) PO SCH (11:49)
[2017-04-13] MEDS: clonazePAM 0.5 MG TABLET PO SCH ×2 (11:49→21:16)
[2017-04-13] MEDS: VENLAFAXINE HCL 37.5 MG E.R. CAPSULE (FP) PO SCH ×2 (11:49→21:17)
[2017-04-13] MEDS: DOCUSATE SODIUM 100 MG CAPSULE (FP) PO SCH (21:15)
[2017-04-13] MEDS: QUEtiapine FUMARATE 25 MG TABLET (FP) PO SCH (21:16)
[2017-04-14] MEDS: SODIUM CHLORIDE 0.45% 1,000 ML IV SCH (06:29)
[2017-04-14] MEDS: HEPARIN NA (PORCINE) 5,000 UNITS/ML 1ML VIAL SQ SCH ×3 (06:30→21:10)
[2017-04-14] MEDS: ARTIFICIAL TEARS (POLYVINYL ALCOHOL 1.4%) OPTH DROPS OU SCH ×3 (06:35→21:10)
[2017-04-14 07:15] LABS: ALBUMIN 2.7 g/dl (3.4-5.0); ALK PHOS 77 U/L (45-117); ANION GAP 11 (8-16); BILIRUBIN,TOTAL 1.2 mg/dL (0.2-1.0); BLOOD UREA NITROGEN 31 mg/dL (7-18); CHLORIDE 108 mmol/L (98-107); CO2 26 mmol/L (21-32); CREATININE 0.7 mg/dL (0.7-1.3); GLUCOSE,RANDOM 91 mg/dL (74-106); SGPT/ALT 8 U/L (12-78); SODIUM 145 mmol/L (136-145); TOT PROT 5.9 g/dl (6.4-8.2)
[2017-04-14 07:18] LABS: SGOT/AST 22 U/L (15-37)
[2017-04-14] MEDS: ASPIRIN 81 MG CHEWABLE TABLETS PO SCH (11:12)
[2017-04-14] MEDS: ISOSORBIDE MONONITRATE 30 MG TAB.SR.24H (FP) PO SCH (11:13)
[2017-04-14] MEDS: CHOLECALCIFEROL (VITAMIN D3) 1,000 UNIT TABLET (FP) PO SCH (11:13)
[2017-04-14] MEDS: PANTOPRAZOLE 20 MG TABLET (FP) PO SCH (11:13)
[2017-04-14] MEDS: VENLAFAXINE HCL 37.5 MG E.R. CAPSULE (FP) PO SCH ×2 (11:15→21:10)
[2017-04-14] MEDS ORDERED: PT OWN MED DRAWER 7, Y5N ONE ×3 (11:15→21:05)
[2017-04-14] MEDS: clonazePAM 0.5 MG TABLET PO SCH ×2 (14:44→21:09)
[2017-04-14] MEDS: D5-1/2NS+10 MEQ KCL - 10 MEQ/1,000 ML INFUS.BAG IV SCH (15:23)
--- NOTE | 2017-04-14 18:27 | PN ---
Physical Exam: SUBJECTIVE: Patient seen and examined. "I have pain all over." OBJECTIVE: Vital Signs Period Temp Pulse Resp BP Sys/Linder Pulse Ox Last 24 Hr 97.4 F-98.1 F 50-57 18-20 103-156/46-60 92-95 GENERAL: The patient is awake. Answers to name, states his first name. Refuses to open eyes but allows exam. LUNGS: Breath sounds equal, clear to auscultation bilaterally, no wheezes, no crackles, no accessory muscle use. HEART: Regular rate and rhythm, S1, S2 without murmur, rub or gallop. ABDOMEN: Soft, nontender, nondistended, normoactive bowel sounds, no guarding, no rebound EXTREMITIES: 2+ pulses, warm, well-perfused, no edema. Laboratory Results - last 24 hr 04/14/17 06:00 Sodium 145 Potassium 4.0 Chloride 108 H Carbon Dioxide 26 Anion Gap 11 BUN 31 H D Creatinine 0.7 D Creat Clearance w eGFR > 60 Random Glucose 91 D Calcium 8.0 L Total Bilirubin 1.2 H AST 22 ALT 8 L D Alkaline Phosphatase 77 Total Protein 5.9 L Albumin 2.7 L D Active Medications Generic Name Dose Route Start Last Admin Trade Name Freq PRN Reason Stop Dose Admin Acetaminophen 650 mg 04/13/17 03:20 Tylenol - PO Q6H PRN PAIN Albuterol Sulfate 1 amp 04/13/17 03:20 Ventolin 0.083% Nebulizer Soln - NEB Q4H PRN SHORT OF BREATH/WHEEZING Artificial Tears 2 drop 04/13/17 06:00 04/14/17 15:23 Artificial Tears OU 2 drop TID GI Administration Aspirin 81 mg 04/13/17 10:00 04/14/17 11:12 Asa - PO 81 mg DAILY GI Administration Cholecalciferol 1,000 unit 04/13/17 10:00 04/14/17 11:13 Vitamin D3 - PO 1,000 unit DAILY GI Administration Clonazepam 0.5 mg 04/13/17 10:00 04/14/17 14:44 Klonopin - PO Not Given BID GI Docusate Sodium 200 mg 04/13/17 22:00 04/13/17 21:15 Colace - PO 200 mg HS GI Administration Heparin Sodium (Porcine) 5,000 unit 04/13/17 06:00 04/14/17 15:23 Heparin - SQ 5,000 unit TID GI Administration Sodium Chloride 1,000 mls @ 75 mls/hr 04/13/17 03:15 04/14/17 06:29 1/2 Normal Saline IV Not Given ASDIR GI Potassium Chloride/Dextrose/Sod Cl 10 meq in 1,000 mls @ 100 mls/hr 04/13/17 10:45 04/14/17 15:23 D5-1/2ns+10 Meq Kcl - IV Not Given ASDIR GI Isosorbide Mononitrate 30 mg 04/13/17 10:00 04/14/17 11:13 Imdur - PO 30 mg DAILY GI Administration Pantoprazole Sodium 20 mg 04/13/17 10:00 04/14/17 11:13 Protonix - PO 20 mg DAILY GI Administration Quetiapine Fumarate 25 mg 04/13/17 22:00 04/13/17 21:16 Seroquel - PO 25 mg HS GI Administration Venlafaxine HCl 37.5 mg 04/13/17 10:00 04/14/17 11:15 Effexor Xr - PO 37.5 mg BID GI Administration ASSESSMENT/PLAN 81 year-old male with a PMH significant for HTN, CAD, COPD, GERD, dementia/ anxiety. Wheelchair bound. Unwitnessed fall at [place]. 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, nothing acute --US carotids: left moderate to large plaque (6mm thickness) internal carotid artery with 50-69% stenosis; continue ASA,start Lipitor 40mg --vascular consult requested UTI --3+leuks, 448 WBCs; dysuria --Mild leukocytosis, afebrile --received 2 doses of levaquin before urine culture collected and sent --start ceftriaxone Hypertension --BP stable Coronary artery disease --flat trending troponins, likely demand ischemia from infection --continue ASA, Lipitor, Imdur Bradycardia --rate drops to 30s --not on any lashonda blockers --cardiology consult requested COPD, chronic --albuterol nebs PRN FEN Fluids: PO intake adequate Electrolytes: replete as indicated Nutrition: low sodium DVT prophylaxis: subq heparin Physical therapy evaluation Dispo: continues to require inpatient care. Full code. Visit type - Emergency Visit Emergency Visit: Yes ED Registration Date: 04/13/17 Care time: The patient presented to the Emergency Department on the above date and was hospitalized for further evaluation of their emergent condition. - New Patient This patient is new to me today: Yes Date on this admission: 04/15/17 - Critical Care Critical Care patient: No
[2017-04-14] MEDS: DOCUSATE SODIUM 100 MG CAPSULE (FP) PO SCH (21:09)
[2017-04-14] MEDS: ATORVASTATIN CA 40 MG TABLET (FP) PO SCH (21:09)
[2017-04-14] MEDS: QUEtiapine FUMARATE 25 MG TABLET (FP) PO SCH (21:10)
[2017-04-15] MEDS: HEPARIN NA (PORCINE) 5,000 UNITS/ML 1ML VIAL SQ SCH ×3 (06:03→22:29)
[2017-04-15] MEDS: ARTIFICIAL TEARS (POLYVINYL ALCOHOL 1.4%) OPTH DROPS OU SCH ×3 (06:03→22:29)
[2017-04-15 07:49] LABS: BASO % 0.4 % (0-2.0); EOS % 2.2 % (0-4.5); HEMATOCRIT 41.8 % (35.4-49); HEMOGLOBIN 14.3 GM/dL (11.7-16.9); LYMPH % 31.6 % (8-40); MCH 34.5 pg (25.7-33.7); MCHC 34.2 g/dl (32.0-35.9); MEAN CELL VOLUME 100.9 fl (80-96); MONO % 8.6 % (3.8-10.2); NEUT % 57.2 % (42.8-82.8); PLATELET COUNT 212 K/MM3 (134-434); RBC 4.15 M/mm3 (4.00-5.60); RDW 13.9 % (11.9-15.9); WHITE BLOOD COUNT 8.1 K/mm3 (4.0-10.0)
[2017-04-15 08:03] LABS: ALBUMIN 2.7 g/dl (3.4-5.0); ALK PHOS 84 U/L (45-117); ANION GAP 5 (8-16); BILIRUBIN,TOTAL 0.8 mg/dL (0.2-1.0); BLOOD UREA NITROGEN 17 mg/dL (7-18); CALCIUM 7.8 mg/dL (8.5-10.1); CHLORIDE 108 mmol/L (98-107); CO2 30 mmol/L (21-32); CREATININE 0.6 mg/dL (0.7-1.3); GLUCOSE,RANDOM 65 mg/dL (74-106); MAGNESIUM 1.7 mg/dL (1.8-2.4); POTASSIUM 3.8 mmol/L (3.5-5.1); SGOT/AST 12 U/L (15-37); SGPT/ALT 11 U/L (12-78); SODIUM 143 mmol/L (136-145); TOT PROT 5.8 g/dl (6.4-8.2)
[2017-04-15] MEDS: CEFTRIAXONE 1 G/50 ML PREMIX 50 ML IVPB SCH (10:43)
[2017-04-15] MEDS: CHOLECALCIFEROL (VITAMIN D3) 1,000 UNIT TABLET (FP) PO SCH (10:43)
[2017-04-15] MEDS: PANTOPRAZOLE 20 MG TABLET (FP) PO SCH (10:44)
[2017-04-15] MEDS: ASPIRIN 81 MG CHEWABLE TABLETS PO SCH (10:44)
[2017-04-15] MEDS: clonazePAM 0.5 MG TABLET PO SCH ×2 (10:44→22:26)
[2017-04-15] MEDS: ISOSORBIDE MONONITRATE 30 MG TAB.SR.24H (FP) PO SCH (10:44)
[2017-04-15] MEDS ORDERED: PT OWN MED DRAWER 7, Y5N ONE ×2 (10:54→22:14)
[2017-04-15] MEDS: VENLAFAXINE HCL 37.5 MG E.R. CAPSULE (FP) PO SCH ×2 (11:02→22:26)
--- NOTE | 2017-04-15 13:10 | PN ---
Physical Exam: SUBJECTIVE: Patient seen and examined. More responsive today. Lies in bed in position, says he is very tired and does not want to get out of bed. Answers yes to almost all ROS questions, including dysuria, but difficult to say if accurate. OBJECTIVE: Vital Signs Period Temp Pulse Resp BP Sys/Linder Pulse Ox Last 24 Hr 97.4 F-98.3 F 50-60 16-20 119-156/45-66 95-97 GENERAL: The patient is awake, oriented x 2. LUNGS: Breath sounds equal, clear to auscultation bilaterally, no wheezes, no crackles, no accessory muscle use. HEART: Regular rate and rhythm, S1, S2 without murmur, rub or gallop. ABDOMEN: Soft, nontender, nondistended, normoactive bowel sounds, no guarding, no rebound EXTREMITIES: 2+ pulses, warm, well-perfused, no edema. Laboratory Results - last 24 hr 04/15/17 04/15/17 06:20 06:20 WBC 8.1 D RBC 4.15 Hgb 14.3 Hct 41.8 MCV 100.9 H MCH 34.5 H MCHC 34.2 RDW 13.9 Plt Count 212 MPV 9.0 Neutrophils % 57.2 Lymphocytes % 31.6 D Monocytes % 8.6 Eosinophils % 2.2 D Basophils % 0.4 Sodium 143 Potassium 3.8 Chloride 108 H Carbon Dioxide 30 Anion Gap 5 L BUN 17 D Creatinine 0.6 L Creat Clearance w eGFR > 60 Random Glucose 65 L D Calcium 7.8 L Magnesium 1.7 L Total Bilirubin 0.8 D AST 12 L D ALT 11 L D Alkaline Phosphatase 84 Total Protein 5.8 L Albumin 2.7 L Active Medications Generic Name Dose Route Start Last Admin Trade Name Freq PRN Reason Stop Dose Admin Acetaminophen 650 mg 04/13/17 03:20 Tylenol - PO Q6H PRN PAIN Albuterol Sulfate 1 amp 04/13/17 03:20 Ventolin 0.083% Nebulizer Soln - NEB Q4H PRN SHORT OF BREATH/WHEEZING Artificial Tears 2 drop 04/13/17 06:00 04/15/17 06:03 Artificial Tears OU 2 drop TID GI Administration Aspirin 81 mg 04/13/17 10:00 04/15/17 10:44 Asa - PO 81 mg DAILY GI Administration Atorvastatin Calcium 40 mg 04/14/17 22:00 04/14/17 21:09 Lipitor - PO 40 mg HS GI Administration Atorvastatin Calcium 40 mg 04/15/17 22:00 Lipitor - PO HS GI Cholecalciferol 1,000 unit 04/13/17 10:00 04/15/17 10:43 Vitamin D3 - PO 1,000 unit DAILY GI Administration Clonazepam 0.5 mg 04/13/17 10:00 04/15/17 10:44 Klonopin - PO 0.5 mg BID GI Administration Docusate Sodium 200 mg 04/13/17 22:00 04/14/17 21:09 Colace - PO 200 mg HS GI Administration Heparin Sodium (Porcine) 5,000 unit 04/13/17 06:00 04/15/17 06:03 Heparin - SQ 5,000 unit TID GI Administration CEFTRIAXONE 1 G/50 ML PREMIX 50 mls @ 100 mls/hr 04/15/17 10:00 04/15/17 10: 43 Ceftriaxone 1 Gm-D5w Bag IVPB 100 mls/hr DAILY GI Administration Isosorbide Mononitrate 30 mg 04/13/17 10:00 04/15/17 10:44 Imdur - PO 30 mg DAILY GI Administration Pantoprazole Sodium 20 mg 04/13/17 10:00 04/15/17 10:44 Protonix - PO 20 mg DAILY GI Administration Quetiapine Fumarate 25 mg 04/13/17 22:00 04/14/17 21:10 Seroquel - PO 25 mg HS GI Administration Venlafaxine HCl 37.5 mg 04/13/17 10:00 04/15/17 11:02 Effexor Xr - PO 37.5 mg BID GI Administration ASSESSMENT/PLAN 81 year-old male with a PMH significant for HTN, CAD, COPD, GERD, dementia/ anxiety. Wheelchair bound. Unwitnessed fall at [place]. 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, nothing acute --US carotids: left moderate to large plaque (6mm thickness) internal carotid artery with 50-69% stenosis; --continue ASA,start Lipitor 40mg --vascular consult requested UTI --3+leuks, 448 WBCs; dysuria --Mild leukocytosis, afebrile --received 2 doses of levaquin before urine culture collected and sent --start ceftriaxone Hypertension --BP stable Coronary artery disease --flat trending troponins, likely demand ischemia from infection --continue ASA, Lipitor, Imdur Bradycardia --rate drops to 30s at night without prolonged pauses and APCs --avoid AV lashonda blockers COPD, chronic --albuterol nebs PRN FEN Fluids: PO intake adequate Electrolytes: replete as indicated Nutrition: low sodium DVT prophylaxis: subq heparin Physical therapy evaluation Dispo: continues to require inpatient care. Full code. Visit type - Emergency Visit Emergency Visit: Yes ED Registration Date: 04/13/17 Care time: The patient presented to the Emergency Department on the above date and was hospitalized for further evaluation of their emergent condition. - New Patient This patient is new to me today: No - Critical Care Critical Care patient: No
--- NOTE | 2017-04-15 15:12 | CON.CARD ---
Consult Consult Specialty:: Cardiology Reason for Consultation:: fall with mild TP elevation - History of Present Illness History of Present Illness: 80 yo M with dementia and anxiety whmary ellen is a snf resident and has HTN, COPD , severe Mitral regurgitation, CAD, GERD, BIBEMS from [facility] after a fall. Pt was said to be attempting to get out of bed when he fell. He is being treated for a UTI. There is no respiratory distress and he reports no chest pain. Overnight telemetry showed nocturnal sinus bradycardia without prolonged pauses. AN echocardiogram in 2016 showed normal LV function with myxomatus mitral valve and severe MR. RV function was normal. Moderate AR. 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 Cardio/Vascular: Yes: CAD (no history available ), HTN, Hyperlipdemia Gastrointestinal: Yes: GERD Psych: Yes: Anxiety - Alcohol/Substance Use Hx Alcohol Use: No - Smoking History Smoking history: Never smoked Have you smoked in the past 12 months: No - Social History Usual Living Arrangement: Halfway Home Medications - Allergies Allergies/Adverse Reactions: Allergies Allergy/AdvReac Type Severity Reaction Status Date / Time Penicillins Allergy Verified 04/12/17 20:13 - Home Medications Home Medications: Ambulatory Orders Acetaminophen [Tylenol] 650 mg PO QID PRN 01/27/16 Aspirin [ASA -] 81 mg PO DAILY 01/27/16 Docusate Sodium [Colace -] 200 mg PO HS 01/27/16 Isosorbide Mononitrate [Imdur -] 30 mg PO DAILY 01/27/16 Omeprazole Magnesium [Prilosec] 20 mg PO DAILY 01/27/16 Quetiapine Fumarate [Seroquel -] 25 mg PO HS 01/27/16 Venlafaxine HCl ER [Effexor Xr -] 37.5 mg PO BID 01/27/16 clonazePAM [Klonopin -] 0.5 mg PO BID 01/27/16 Albuterol 0.083% Nebulizer Madeleine [Ventolin 0.083% Nebulizer Soln -] 1 amp NEB Q4H PRN #0 amp 02/02/16 Aa/Hydrolyzed Collagen, Whey [Lps Neutral Flavor Liquid] 30 ml PO TID 03/03/16 Cholecalciferol (Vitamin D3) [Vitamin D3 -] 1,000 unit PO DAILY 04/12/17 Propylene Glycol/Peg 400/Pf [Systane 0.3-0.4% Eye Drops] 2 drop OU TID 04/12/17 Review of Systems Unable to obtain ROS, reason: Dementia Vital Signs: Vital Signs Temperature 97.9 F 04/15/17 14:46 Pulse Rate 64 04/15/17 14:46 Respiratory Rate 18 04/15/17 14:46 Blood Pressure 116/38 04/15/17 14:46 O2 Sat by Pulse Oximetry (%) 97 04/14/17 22:00 Constitutional: Yes: No Distress, Calm, Cachectic Eyes: Yes: Conjunctiva Clear, EOM Intact HENT: Yes: Atraumatic, Normocephalic Neck: Yes: Supple, Trachea Midline Respiratory: Yes: Regular, CTA Bilaterally Gastrointestinal: Yes: Normal Bowel Sounds, Soft Cardiovascular: Yes: Regular Rate and Rhythm JVD: No Carotid Bruit: No PMI: Non-Displaced Heart Sounds: Yes: S1, S2 Murmur: Yes: Systolic Murmur, Grade 2 (apex) Edema: No - Other Data Labs, Other Data: CBC, BMP 04/15/17 06:20 04/15/17 06:20 INR, PTT INR 1.22 (0.82-1.09) H 04/13/17 05:35 Laboratory Tests 04/12/17 04/13/17 22:11 05:35 Creatine Kinase 94 92 Troponin I 0.13 H D 0.10 H NSR with 1st degree AVB and RBBB Problem List - Problems (1) Elevated troponin Code(s): R74.8 - ABNORMAL LEVELS OF OTHER SERUM ENZYMES (2) CAD (coronary artery disease) Code(s): I25.10 - ATHSCL HEART DISEASE OF [place] CORONARY ARTERY W/O ANG PCTRS (3) Fall Code(s): W19.XXXA - UNSPECIFIED FALL, INITIAL ENCOUNTER Qualifiers: Encounter type: initial encounter Qualified Code(s): W19.XXXA - Unspecified fall, initial encounter Assessment/Plan 81 M admitted after a fall. He is being treated for UTI. ECG is benign and unchanged from prior. Telemetry showing nocturnal bradycardia without prolonged pauses and APCs. Minimal troponin I elevation without dynamic change and of unclear significance. Avoid AV lashonda blockers Can DC telemetry. Will see as needed.
[2017-04-15] MEDS ORDERED: ATORVASTATIN CA 40 MG TABLET (FP) PO SCH (22:00)
[2017-04-15] MEDS: QUEtiapine FUMARATE 25 MG TABLET (FP) PO SCH (22:25)
[2017-04-15] MEDS: DOCUSATE SODIUM 100 MG CAPSULE (FP) PO SCH (22:25)
[2017-04-15] MEDS: ATORVASTATIN CA 40 MG TABLET (FP) PO SCH (22:26)
[2017-04-16] MEDS: HEPARIN NA (PORCINE) 5,000 UNITS/ML 1ML VIAL SQ SCH ×2 (05:49→13:58)
[2017-04-16] MEDS: ARTIFICIAL TEARS (POLYVINYL ALCOHOL 1.4%) OPTH DROPS OU SCH ×2 (05:52→13:58)
[2017-04-16 07:20] LABS: ANION GAP 9 (8-16); BLOOD UREA NITROGEN 17 mg/dL (7-18); CALCIUM 7.9 mg/dL (8.5-10.1); CHLORIDE 105 mmol/L (98-107); CO2 29 mmol/L (21-32); GLUCOSE,RANDOM 67 mg/dL (74-106); MAGNESIUM 1.8 mg/dL (1.8-2.4); POTASSIUM 3.8 mmol/L (3.5-5.1); SODIUM 143 mmol/L (136-145)
[2017-04-16 07:21] LABS: CREATININE 0.6 mg/dL (0.7-1.3)
[2017-04-16] MEDS: CHOLECALCIFEROL (VITAMIN D3) 1,000 UNIT TABLET (FP) PO SCH (10:19)
[2017-04-16] MEDS: ISOSORBIDE MONONITRATE 30 MG TAB.SR.24H (FP) PO SCH (10:19)
[2017-04-16] MEDS: PANTOPRAZOLE 20 MG TABLET (FP) PO SCH (10:19)
[2017-04-16] MEDS: CEFTRIAXONE 1 G/50 ML PREMIX 50 ML IVPB SCH (10:19)
[2017-04-16] MEDS: ASPIRIN 81 MG CHEWABLE TABLETS PO SCH (10:19)
[2017-04-16] MEDS: VENLAFAXINE HCL 37.5 MG E.R. CAPSULE (FP) PO SCH (10:19)
[2017-04-16] MEDS: clonazePAM 0.5 MG TABLET PO SCH (10:19)
[2017-04-16 14:37] VITALS: BP 110/57; PULSE 59; TEMP 98
--- NOTE | 2017-04-16 15:27 | CONSULT ---
- Consultation REQUESTING PROVIDER: CONSULT REQUEST: We have been asked to surgically evaluate this patient for left carotid stenosis. PCP:Zeenat Olguin HISTORY OF PRESENT ILLNESS: The patient is a 81 yo male admitted to the hospital s/p fall, wheel chair bound, now with right leg pain. He was found to have a UTI on admission and elevated troponin. During his admission carotid doppler studies were completed and a surgical consult was called for left carotid stenosis. He has dementia and the history was obtained from the chart. PMHx: HTN, COPD, dementia, Gerd, dementia PSHx: appendectomy Home Medications Medication Instructions Recorded Acetaminophen [Tylenol] 650 mg PO QID PRN 01/27/16 Aspirin [ASA -] 81 mg PO DAILY 01/27/16 Docusate Sodium [Colace -] 200 mg PO HS 01/27/16 Isosorbide Mononitrate [Imdur -] 30 mg PO DAILY 01/27/16 Omeprazole Magnesium [Prilosec] 20 mg PO DAILY 01/27/16 Quetiapine Fumarate [Seroquel -] 25 mg PO HS 01/27/16 Venlafaxine HCl ER [Effexor Xr -] 37.5 mg PO BID 01/27/16 clonazePAM [Klonopin -] 0.5 mg PO BID 01/27/16 Albuterol 0.083% Nebulizer Madeleine 1 amp NEB Q4H PRN #0 amp 02/02/16 [Ventolin 0.083% Nebulizer Soln -] Aa/Hydrolyzed Collagen, Whey [Lps 30 ml PO TID 03/03/16 Neutral Flavor Liquid] Cholecalciferol (Vitamin D3) 1,000 unit PO DAILY 04/12/17 [Vitamin D3 -] Propylene Glycol/Peg 400/Pf 2 drop OU TID 04/12/17 [Systane 0.3-0.4% Eye Drops] Allergies Allergy/AdvReac Type Severity Reaction Status Date / Time Penicillins Allergy Verified 04/12/17 20:13 REVIEW OF SYSTEMS: unable to obtain PHYSICAL EXAM: GENERAL: Awake, alert, and not oriented to time/person HEAD: Normal with no signs of trauma. NECK:supple. No carotid bruits b/l LUNGS: Clear to auscultation bilat anteriorly. No wheezes, and no crackles. No accessory muscle use. HEART: Regular rate and rhythm. ABDOMEN: Soft, nontender, not distended. UPPER EXTREMITIES: 2+ pulses, warm, well-perfused. Welder Fitter Helper strength equal b/l. LOWER EXTREMITIES: 2+ pulses, warm, well-perfused. No calf tenderness. No peripheral edema. Scratch hull to RLE. Vital Signs Temperature 98.0 F 04/16/17 13:00 Pulse Rate 59 L 04/16/17 13:00 Respiratory Rate 16 04/16/17 13:00 Blood Pressure 110/57 04/16/17 13:00 O2 Sat by Pulse Oximetry (%) 96 04/16/17 10:00 Lab Results WBC 8.1 K/mm3 (4.0-10.0) D 04/15/17 06:20 RBC 4.15 M/mm3 (4.00-5.60) 04/15/17 06:20 Hgb 14.3 GM/dL (11.7-16.9) 04/15/17 06:20 Hct 41.8 % (35.4-49) 04/15/17 06:20 MCV 100.9 fl (80-96) H 04/15/17 06:20 MCHC 34.2 g/dl (32.0-35.9) 04/15/17 06:20 RDW 13.9 % (11.9-15.9) 04/15/17 06:20 Plt Count 212 K/MM3 (134-434) 04/15/17 06:20 Sodium 143 mmol/L (136-145) 04/16/17 06:25 Potassium 3.8 mmol/L (3.5-5.1) 04/16/17 06:25 Chloride 105 mmol/L (98-107) 04/16/17 06:25 Carbon Dioxide 29 mmol/L (21-32) 04/16/17 06:25 Anion Gap 9 (8-16) 04/16/17 06:25 BUN 17 mg/dL (7-18) 04/16/17 06:25 Creatinine 0.6 mg/dL (0.7-1.3) L 04/16/17 06:25 Random Glucose 67 mg/dL (74-106) L 04/16/17 06:25 Calcium 7.9 mg/dL (8.5-10.1) L 04/16/17 06:25 INR 1.22 (0.82-1.09) H 04/13/17 05:35 Microbiology 04/14/17 16:00 Urine - Urine Clean Catch Urine Culture - Final NO GROWTH OBTAINED Laboratory Tests 04/12/17 04/12/17 04/13/17 22:11 22:30 05:35 Troponin I 0.13 H D 0.10 H Urine Color Isabella Urine Appearance Cloudy Urine pH 5.0 Ur Specific [place] 1.018 Urine Protein 1+ H Urine Glucose (UA) Negative Urine Ketones Trace H Urine Blood Negative Urine Nitrite Negative Urine Bilirubin 2.0 Urine Urobilinogen 4.0 e.u/dl Ur Leukocyte Esterase 3+ H Urine WBC (Auto) 448 Urine RBC (Auto) 10 Ur Epithelial Cells Rare Urine Bacteria Rare Hyaline Casts 9 Urine Mucus Rare US-duplex Left carotid with intimal thickening/small plaque, 50-69% stenosis without hemodynamically significant stenosis. Right Tib/fib: no fracture/dislocation A/p: 81 yo male admitted with UTI/ekg changes D/w Dr. Hunter, studies reviewed and clinical presentation. The findings on his duplex studies do not indicate surgery at this times. His stenosis is below 80%. Continue Aspirin Treatment for UTI Visit type - Case Type Case Type: ED Admission - Emergency Emergency Visit: Yes ED Registration Date: 04/13/17 Care time: The patient presented to the Emergency Department on the above date and was hospitalized for further evaluation of their emergent condition. - New patient This patient is new to me today: Yes Date on this admission: 04/16/17
== END 2017-04-16 19:48 ==
LOC: JER 20:08 → JERBED 04-13 01:05 → J4S 04-13 04:04
PROVIDERS: ADMIT Internal Medicine; ATTEND Nurse Practitioner Acute Care
PROC: 3E033GC Introduction of Other Therapeutic Substance into Peripheral Vein, Percutaneous Approach (ICD-10-PCS; principal; 2017-04-13)
PROC: 3E0337Z Introduction of Electrolytic and Water Balance Substance into Peripheral Vein, Percutaneous Approach (ICD-10-PCS; 2017-04-13)
PROC: 3E013GC Introduction of Other Therapeutic Substance into Subcutaneous Tissue, Percutaneous Approach (ICD-10-PCS; 2017-04-13)
DX: N39.0 Urinary tract infection, site not specified (principal); R77.8 Other specified abnormalities of plasma proteins; N17.9 Acute kidney failure, unspecified; I10 Essential (primary) hypertension; I25.10 Atherosclerotic heart disease of native coronary artery without angina pectoris; F03.90 Unspecified dementia, unspecified severity, without behavioral disturbance, psychotic disturbance, mood disturbance, and anxiety; J44.9 Chronic obstructive pulmonary disease, unspecified; K21.9 Gastro-esophageal reflux disease without esophagitis; F32.9 Major depressive disorder, single episode, unspecified; E16.2 Hypoglycemia, unspecified; E86.0 Dehydration; F41.9 Anxiety disorder, unspecified; R00.1 Bradycardia, unspecified; Z88.0 Allergy status to penicillin; Z79.84 Long term (current) use of oral hypoglycemic drugs; W18.39XA Other fall on same level, initial encounter; Y93.89 Activity, other specified; Y92.122 Bedroom in nursing home as the place of occurrence of the external cause
CPT/HCPCS: 36415; 70450-TC; 71045-TC-FY; 73590-TC-RT-FY; 80048; 80053; 81003; 81015; 82550; 83735; 84100; 84484; 85025; 85610; 85730; 87086; 93005; 93010; 93306-TC; 93880-TC; 93971-TC; 96365; 96372; 97161-GP; 99282-25; G0378; J1644

== ENCOUNTER 2018-05-01 23:00 | Inpatient (IN) | payer OTHER ==
--- NOTE | 2018-05-02 00:40 | PDOC ---
Attending Attestation - Resident Resident Name: Anh Grandeica - ED Attending Attestation I have performed the following: I have examined & evaluated the patient, The case was reviewed & discussed with the resident, I agree w/resident's findings & plan - HPI HPI: 05/02/18 02:51 82-year-old male sent from a [facility] facility with shortness of breath and possible GI bleed. Patient states she feels like he is having some difficulty breathing. He does have a history of COPD as well as C differential. - Physicial Exam PE: 05/02/18 02:52 Agree with resident's exam - Critical Care Time Total Critical Care Time: 70 Critical Care Statement: The care of this patient involved high complexity decision making to prevent further life threatening deterioration of the patient 's condition and/or to evaluate & treat vital organ system(s) failure or risk of failure. - Medical Decision Making 05/02/18 02:52 82-year-old male with shortness of breath and bloody diarrhea Labs suggest dehydration as well as lactic acidosis Chest x-ray is rotated prohibiting full interpretation with no obvious acute infiltrate IV fluid normal saline 1 L bolus ordered Arterial blood gas suggests hypoxemia with a pO2 of 49, patient is currently on BiPAP and comfortable Case to be discussed with the ICU team for admission, patient's sister was contacted under direction of his [facility] facility who has given permission for intubation but does not want chest compressions, therefore patient is not DNI Antibiotics, Zosyn and vancomycin and metronidazole will be given to cover both lung and GI pathology
--- NOTE | 2018-05-02 00:49 | PDOC ---
History of Present Illness - General Chief Complaint: Rectal Bleed Stated Complaint: GI DISTRESS Time Seen by Provider: 05/02/18 00:36 - History of Present Illness Initial Comments: 05/02/18 00:58 HPI obtained from EMR and [facility] Paperwork 82 year old male with a PMH of HTN, COPD, CAD, GERD BIBEMS from [facility] for episode of diarrhea and vomiting @ 8 p.m. Patient on NRB, history taking limited. Allergy: Penicillin Surgical: Appendectomy Social: no documented h/o toxic habits Past History - Past Medical History Allergies/Adverse Reactions: Allergies Allergy/AdvReac Type Severity Reaction Status Date / Time Penicillins Allergy Verified 05/01/18 23:41 Home Medications: Ambulatory Orders Acetaminophen [Tylenol] 650 mg PO QID PRN 01/27/16 Aspirin [ASA -] 81 mg PO DAILY 01/27/16 Docusate Sodium [Colace -] 200 mg PO HS 01/27/16 Isosorbide Mononitrate [Imdur -] 30 mg PO DAILY 01/27/16 Omeprazole Magnesium [Prilosec] 20 mg PO DAILY 01/27/16 Quetiapine Fumarate [Seroquel -] 25 mg PO HS 01/27/16 Venlafaxine HCl ER [Effexor Xr -] 37.5 mg PO BID 01/27/16 clonazePAM [Klonopin -] 0.5 mg PO BID 01/27/16 Albuterol 0.083% Nebulizer Madeleine [Ventolin 0.083% Nebulizer Soln -] 1 amp NEB Q4H PRN #0 amp 02/02/16 Aa/Hydrolyzed Collagen, Whey [Lps Neutral Flavor Liquid] 30 ml PO TID 03/03/16 Cholecalciferol (Vitamin D3) [Vitamin D3 -] 1,000 unit PO DAILY 04/12/17 Propylene Glycol/Peg 400/Pf [Systane 0.3-0.4% Eye Drops] 2 drop OU TID 04/12/17 Sulfamethoxazole/Trimethoprim [Bactrim Ds -] 1 tab PO DAILY #6 tablet 04/16/17 Cardiac Disorders: Yes COPD: Yes Dementia: Yes GI Disorders: Yes (GERD) HTN: Yes Psychiatric Problems: Yes (depressive, anxiety) - Surgical History Appendectomy: Yes - Suicide/Smoking/Psychosocial Hx Smoking History: Unknown if ever smoked Have you smoked in the past 12 months: No Hx Alcohol Use: No Drug/Substance Use Hx: No Substance Use Type: None Hx Substance Use Treatment: No Review of Systems - Review of Systems Able to Perform ROS?: No (on NRB) *Physical Exam - Vital Signs Last Vital Signs Temp Pulse Resp BP Pulse Ox 96.6 F L 121 H 24 H 153/81 97 05/01/18 23:00 05/01/18 23:00 05/01/18 23:00 05/01/18 23:00 05/01/18 23:00 - Physical Exam Comments: 05/02/18 01:00 Awake, verbal, soiled diaper Thin, contracted extremities B/L scattered crackles S1, S2, no M/R/G Soft non-tender abdomen Moderate Sedation - Procedure Monitoring Vital Signs: Procedure Monitoring Vital Signs Temperature 96.6 F L 05/01/18 23:00 Pulse Rate 121 H 05/01/18 23:00 Respiratory Rate 24 H 05/01/18 23:00 Blood Pressure 153/81 05/01/18 23:00 O2 Sat by Pulse Oximetry (%) 97 05/01/18 23:00 ED Treatment Course - LABORATORY CBC & Chemistry Diagram: 05/02/18 00:56 05/02/18 00:56 Medical Decision Making - Medical Decision Making 05/02/18 01:01 82 year old make BIBEMS from [facility] for diarrhea, vomiting, congestion. Tachycardic (HR 121), Tachypneic (RR 24) Temp 99.6 @ presentation. ED Adult Sepsis initiated. Pending BIPAP and ABG. Will admit, likely inpatient telemetry or ICU. 05/02/18 01:25 FOBT Positive Mild Metabolic Acidosis: 7.31/38.4/49/18.6 - measured on BIPAP Leukocytosis 18.2 Hb 8.2 likely 2/2 dehydration 05/02/18 01:34 Case d/w [facility], patient's sister is HCP (home); (cell) 05/02/18 01:37 Spoke with Isaias Harmon; confirms she is HCP No resuscitation OK to intubate 05/02/18 02:00 Lactic 3.2 - IV hydration 05/02/18 03:52 Case d/w hospitalist - accepts for admission; As patient has impending respiratory failure and volume loss in light of GI bleed and dehydration Will start patient on Abx with coverage for respiratory and GI 05/02/18 03:58 ICU @ bedside Accepts patient for admission *DC/Admit/Observation/Transfer Diagnosis at time of Disposition: GI bleed - Discharge Dispostion Condition at time of disposition: Fair Decision to Admit order: Yes - Referrals - Patient Instructions - Post Discharge Activity
[2018-05-02 01:09] LABS: BASO % 0.1 % (0-2.0); HEMATOCRIT 52.7 % (35.4-49); HEMOGLOBIN 18.2 GM/dL (11.7-16.9); LYMPH % 3.1 % (8-40); MCH 35.1 pg (25.7-33.7); MCHC 34.6 g/dl (32.0-35.9); MEAN CELL VOLUME 101.5 fl (80-96); MEAN PLT VOLUME 9.3 fl (7.5-11.1); MONO % 8.9 % (3.8-10.2); NEUT % 87.9 % (42.8-82.8); PLATELET COUNT 212 K/MM3 (134-434); RDW 13.6 % (11.9-15.9); WHITE BLOOD COUNT 18.2 K/mm3 (4.0-10.0)
[2018-05-02 01:09] LABS: ARTERIAL BLD GAS O2 SATURATION 84.9 % (95-98); ARTERIAL BLOOD GAS BASE EXCESS -6.8 meq/l (-2-2); ARTERIAL BLOOD GAS PCO2 38.4 mmHg (35-45); CARBOXYHEMOGLOBIN 1.2 % (0-2)
[2018-05-02 01:10] LABS: ALLENS TEST POSITIVE; ARTERIAL BLOOD GAS pH 7.31 (7.35-7.45)
[2018-05-02 01:31] LABS: VENOUS PC02 32.8 mmHg (41-51); VENOUS PH 7.31 (7.31-7.41); VENOUS PO2 47.8 mmHg (30-40)
[2018-05-02 01:35] LABS: ALBUMIN 3.9 g/dl (3.4-5.0); ALK PHOS 104 U/L (45-117); ANION GAP 11 MMOL/L (8-16); BILIRUBIN,TOTAL 0.8 mg/dL (0.2-1); BLOOD UREA NITROGEN 46 mg/dL (7-18); CALCIUM 8.8 mg/dL (8.5-10.1); CHLORIDE 112 mmol/L (98-107); CO2 19 mmol/L (21-32); CREATININE 1.4 mg/dL (0.55-1.3); GLUCOSE,RANDOM 251 mg/dL (74-106); INR 1.28 (0.83-1.09); POTASSIUM 3.5 mmol/L (3.5-5.1); PROTHROMBIN TIME (PATIENT) 15.1 SEC (9.7-13.0); SGOT/AST 23 U/L (15-37); SGPT/ALT 12 U/L (13-61); SODIUM 143 mmol/L (136-145); TOT PROT 8.2 g/dl (6.4-8.2)
[2018-05-02 01:38] LABS: ACTIVATED PTT 32.4 SECONDS (25.2-36.5)
[2018-05-02] MEDS ORDERED: SODIUM CHLORIDE 0.9% 500 ML INFUS.BAG IV ONE ×2 (01:58→02:01)
--- NOTE | 2018-05-02 02:06 | HP ---
<Emerson Plata - Last Filed: 05/02/18 07:47> CHIEF COMPLAINT: Shortness of breath PCP: Nicole Marcelo HISTORY OF PRESENT ILLNESS: alon is an 82 year old male from [facility] was brought in by EMS for evaluation of shortness of breath and bloody diarrhoea. As per report, he had an episode of massive watery diarrhoea with blood and nausea, vomiting at around 8 pm yesterday 05/01 hence brought in to the ED for further evaluation. In the ED, patient was found to be congested and in respiratory distress. Labs significant for leukocytosis of 18.2, H/H 18/52 lactic acid of 3.2, tachycardic , BP 104/61 mmHg. stool occult positive. Last EGD/Colonoscopy unknown. Evaluated the patient in the ED, on Bipap, maintaining saturation about 95 %, BP 104/61 mmHg, HR 86 bpm, clinically he looks like he is in respiratory distress. Will admit the patient in ICU for further monitoring. As per ED resident who spoke with patients daughter regarding code status, he is a DNR but not DNI. Paper work from [place] reports DNR. Patient was recently admitted at [facility] on 04/13/17-04/17/15 for UTI and frequent falls ER course was notable for: (1)Abdomen/Pelvic CT (2)CBC , cmp (3)ABG Recent Travel:none PAST MEDICAL HISTORY: dementia and anxiety, HTN, COPD, CAD, GERD PAST SURGICAL HISTORY: Appendectomy Social History:not able to obtain Smoking: Alcohol: Drugs: Family History:none Allergies Penicillins Allergy (Verified 05/01/18 23:41) HOME MEDICATIONS: Home Medications Medication Instructions Recorded Acetaminophen [Tylenol] 650 mg PO QID PRN 01/27/16 Aspirin [ASA -] 81 mg PO DAILY 01/27/16 Docusate Sodium [Colace -] 200 mg PO HS 01/27/16 Isosorbide Mononitrate [Imdur -] 30 mg PO DAILY 01/27/16 Omeprazole Magnesium [Prilosec] 20 mg PO DAILY 01/27/16 Quetiapine Fumarate [Seroquel -] 25 mg PO HS 01/27/16 Venlafaxine HCl ER [Effexor Xr -] 37.5 mg PO BID 01/27/16 clonazePAM [Klonopin -] 0.5 mg PO BID 01/27/16 Albuterol 0.083% Nebulizer Madeleine 1 amp NEB Q4H PRN #0 amp 02/02/16 [Ventolin 0.083% Nebulizer Soln -] Aa/Hydrolyzed Collagen, Whey [Lps 30 ml PO TID 03/03/16 Neutral Flavor Liquid] Cholecalciferol (Vitamin D3) 1,000 unit PO DAILY 04/12/17 [Vitamin D3 -] Propylene Glycol/Peg 400/Pf 2 drop OU TID 04/12/17 [Systane 0.3-0.4% Eye Drops] Sulfamethoxazole/Trimethoprim 1 tab PO DAILY #6 tablet 04/16/17 [Bactrim Ds -] REVIEW OF SYSTEMS not able to obtain PHYSICAL EXAMINATION Vital Signs - 24 hr 05/01/18 23:00 Temperature 96.6 F L Pulse Rate 121 H Respiratory 24 H Rate Blood Pressure 153/81 O2 Sat by Pulse 97 Oximetry (%) GENERAL: lethargic on BIPAP , catchetic HEAD: NC/AT EYES: EOMI, Conjunctiva clear, sclera anicteric ENT: dry mucous membrane NECK: Supple, no JVD LUNGS: coarse breath sounds HEART:RRR , normal s1, s2, murmur no M/R/G ABDOMEN: Soft, ND, NT, +BS 4 Q, no CVA Tenderness LOWER EXTREMITIES: no edema, +2DP pulse, NEUROLOGICAL: not able to assess Laboratory Results - last 24 hr 05/02/18 05/02/18 05/02/18 00:30 00:46 00:56 WBC 18.2 H RBC 5.20 Hgb 18.2 H Hct 52.7 H D MCV 101.5 H MCH 35.1 H MCHC 34.6 RDW 13.6 Plt Count 212 MPV 9.3 Absolute Neuts (auto) 16.0 H Neutrophils % 87.9 H D Lymphocytes % 3.1 L D Monocytes % 8.9 Eosinophils % 0.0 D Basophils % 0.1 Nucleated RBC % 0 PT with INR INR PTT (Actin FS) Puncture Site Right radial ABG pH 7.31 L ABG pCO2 at Pt Temp 38.4 ABG pO2 at Pt Temp 49.0 L ABG HCO3 18.6 L ABG O2 Sat (Measured) 84.9 L ABG O2 Content 20.7 ABG Base Excess -6.8 L Vishnu Test Positive VBG pH POC VBG pCO2 POC VBG pO2 VBG HCO3 VBG O2 Sat (Moon) VBG Base Excess Carboxyhemoglobin 1.2 Methemoglobin 0.5 O2 Delivery Device Bipap Oxygen Flow Rate 100% Vent Mode S/t Vent Rate 20 PEEP 0.0 Pressure Support Vent 16/6 Sodium Potassium Chloride Carbon Dioxide Anion Gap BUN Creatinine Creat Clearance w eGFR Random Glucose Lactic Acid Calcium Total Bilirubin AST ALT Alkaline Phosphatase Troponin I Total Protein Albumin Stool Occult Blood Positive 05/02/18 05/02/18 05/02/18 00:56 00:56 00:56 WBC RBC Hgb Hct MCV MCH MCHC RDW Plt Count MPV Absolute Neuts (auto) Neutrophils % Lymphocytes % Monocytes % Eosinophils % Basophils % Nucleated RBC % PT with INR 15.10 H INR 1.28 H PTT (Actin FS) 32.4 Puncture Site ABG pH ABG pCO2 at Pt Temp ABG pO2 at Pt Temp ABG HCO3 ABG O2 Sat (Measured) ABG O2 Content ABG Base Excess Vishnu Test VBG pH POC VBG pCO2 POC VBG pO2 VBG HCO3 VBG O2 Sat (Moon) VBG Base Excess Carboxyhemoglobin Methemoglobin O2 Delivery Device Oxygen Flow Rate Vent Mode Vent Rate PEEP Pressure Support Vent Sodium 143 Potassium 3.5 Chloride 112 H Carbon Dioxide 19 L Anion Gap 11 BUN 46 H Creatinine 1.4 H Creat Clearance w eGFR 48.28 Random Glucose 251 H Lactic Acid Calcium 8.8 Total Bilirubin 0.8 AST 23 ALT 12 L Alkaline Phosphatase 104 Troponin I 0.04 Total Protein 8.2 Albumin 3.9 Stool Occult Blood 05/02/18 05/02/18 01:16 01:16 WBC RBC Hgb Hct MCV MCH MCHC RDW Plt Count MPV Absolute Neuts (auto) Neutrophils % Lymphocytes % Monocytes % Eosinophils % Basophils % Nucleated RBC % PT with INR INR PTT (Actin FS) Puncture Site ABG pH ABG pCO2 at Pt Temp ABG pO2 at Pt Temp ABG HCO3 ABG O2 Sat (Measured) ABG O2 Content ABG Base Excess Vishnu Test VBG pH 7.31 POC VBG pCO2 32.8 L POC VBG pO2 47.8 H VBG HCO3 15.9 L VBG O2 Sat (Moon) 82.5 H VBG Base Excess -9.0 L Carboxyhemoglobin Methemoglobin O2 Delivery Device Oxygen Flow Rate Vent Mode Vent Rate PEEP Pressure Support Vent Sodium Potassium Chloride Carbon Dioxide Anion Gap BUN Creatinine Creat Clearance w eGFR Random Glucose Lactic Acid 3.2 H* Calcium Total Bilirubin AST ALT Alkaline Phosphatase Troponin I Total Protein Albumin Stool Occult Blood CBC, BMP 05/02/18 00:56 05/02/18 00:56 ASSESSMENT/PLAN: # sepsis 2/2 uti vs PNA vs colitis * IV fluids * Abx Vanco/zosyn, Metronidazole in ED , will continue with meropenem * Aspirartion precaution * monitor BP, pharmacy technician per diem # Acute Hypoxic hypercapnic respiratory failure due to copd exacerbation * BIPAP * Duoneb * Albuterol * o2 to maintain o2 sat > 90 * Abx * Solumedrol * ABG # Bloody diarrhea * 2 large IV pores * Type and screen * PT, PTT , INT * Hold ASA * GI consult * IV fluids * H/H Q 4hr * NPO # CAROLANN likely pre renal due to volume depletion vs low oral intake # sever Dehydration likley due to low oral intake * BUN/Cr 46/1.4 * repeat lab after hydration * Urine lytes , urine NA # Dementia and anxiety: * hold meds will continue when he is off bIPAP # HTN now normotensive * IV Hydration. * Hold BP meds. # Hx of Bradycardia * Last admission, his rate dropped to 30s at night without prolonged pauses and APCs # CAD * Hold ASA in term of GI bleed. # Carotid Stenosis * USG of carotids done in 04/30. with left carotid stenosis 50-60% # FEN * RL @ 83 CC/hr * Monitor Lytes * NPO for now # Proph * Scds * GI: PPI IV BID # dispo * ICU onitoring # Code Status: DNR. please discuss with family or HCP Visit type - Emergency Visit Emergency Visit: Yes ED Registration Date: 05/02/18 Care time: The patient presented to the Emergency Department on the above date and was hospitalized for further evaluation of their emergent condition. - New Patient This patient is new to me today: Yes Date on this admission: 05/02/18 - Critical Care Critical Care patient: Yes Total Critical Care Time (in minutes): 45 Critical Care Statement: The care of this patient involved high complexity decision making to prevent further life threatening deterioration of the patient 's condition and/or to evaluate & treat vital organ system(s) failure or risk of failure. <Arias Zarate - Last Filed: 06/03/18 01:31> Seen and examined; agree with resident note aside from what is supplemented in my own documentation.
--- NOTE | 2018-05-02 02:09 | PN ---
Teaching Attending Note Name of Resident: Emerson Plata ATTENDING PHYSICIAN STATEMENT I saw and evaluated the patient. I reviewed the resident's note and discussed the case with the resident. I agree with the resident's findings and plan as documented. SUBJECTIVE: Seen and examined; please refer to resident note for further historical discussion. Briefly, this is an 82 y/o male who was recently admitted for a fall who now presents from [place] by ambulance for bloody diarrhea, vomiting, and some respiratory distress. He is found to be dehydrated (actually hemoconcentrated with high Hb on labs) and is a poor historian. Found to have + LA and +FOBT in the ER with a white count of 18; he has a slight metabolic acidosis on ABG. ER spoke with sister (HCP) who confirmed he is DNR but may be intubated. I see that he was referred to Dr. Torres back in 2015 but the patient cannot tell me what endoscopy he has had prior or if he made the appointment. On presentation he was hypothermic, tachycardic, and tachypnic; he was placed on Bipap in the ER which did help his respiratory symptoms (from the documentation it appears that this was mostly coughing). ER consulted ICU for further help in managing this patient. CT abdomen is pending as he appeared slightly tender to palpation. His urine is positive for LE+2 and 74 WBC but does appear quite concentrated. 10 sys ROS done and negative aside from HPI PMH, PSH, Family hx, Social hx reviewed Medication list reviewed; pending reconciliation Home Medications Medication Instructions Recorded Acetaminophen [Tylenol] 650 mg PO QID PRN 01/27/16 Aspirin [ASA -] 81 mg PO DAILY 01/27/16 Docusate Sodium [Colace -] 200 mg PO HS 01/27/16 Isosorbide Mononitrate [Imdur -] 30 mg PO DAILY 01/27/16 Omeprazole Magnesium [Prilosec] 20 mg PO DAILY 01/27/16 Quetiapine Fumarate [Seroquel -] 25 mg PO HS 01/27/16 Venlafaxine HCl ER [Effexor Xr -] 37.5 mg PO BID 01/27/16 clonazePAM [Klonopin -] 0.5 mg PO BID 01/27/16 Albuterol 0.083% Nebulizer Madeleine 1 amp NEB Q4H PRN #0 amp 02/02/16 [Ventolin 0.083% Nebulizer Soln -] Aa/Hydrolyzed Collagen, Whey [Lps 30 ml PO TID 03/03/16 Neutral Flavor Liquid] Cholecalciferol (Vitamin D3) 1,000 unit PO DAILY 04/12/17 [Vitamin D3 -] Propylene Glycol/Peg 400/Pf 2 drop OU TID 04/12/17 [Systane 0.3-0.4% Eye Drops] Sulfamethoxazole/Trimethoprim 1 tab PO DAILY #6 tablet 04/16/17 [Bactrim Ds -] OBJECTIVE: VS, labs, imaging reviewed NAD, awake and alert, resting in bed NC AT EOMI PERRLA RRR s1/2 no mgr Lungs with b/l mild wheezes and R-rales, w/ sym exp Mild tenderness ND +BS CN2-12 wnl, no fnd Normal mood, appropriate behavior ASSESSMENT AND PLAN: Patient presents with bloody diarrhea; found to be in acute hypoxic respiratory failure with a metabolic acidosis and +LA. 1) Acute Bloody Diarrhea -Trend q8h CBC, consult GI, IV protonix. No s/s cirrhosis. No history of prior bleeds and no bleeding here; I did not see the bloody stool. Unclear if he was ever scoped. Hb is actually elevated likely 2/2 dehydration -Hold home ASA (and any other AC; SCDs for DVT px) -Followup CT (? colitis as did have some tenderness vs. aspiration PNA). NPO; place on maintenance fluid and type and screen in case transfusion needed. Given his severe presentation we will place him on IV abx (merrem given PNC allergy) and consult Dr. Sheffield given agent selection. -Consult GI; defer further treatement and monitoring to their service. Appreciate expert opinion. 2) Acute Hypoxic Respiratory Failure likely 2/2 Acute COPD Exacerbation with likely aspiration PNA -Appeared tachypnic with transient hypoxia on presentation; ABG shows low PaO2 and I will order one to repeat. Placing on steroids, ATC duonebs, and PRN albuterol. Should followup OP for PFTs, etc. Pulmonary to see. Checking BNP; 2018 echo reviewed. -Checking CT chest given R-sided large rales suspect aspiration; CXR was quite rotated which limited assessment. 3) Metabolic Acidosis with +LA -Likely 2/2 above alongside overall dehydration (given hemoconcentration, etc.) . Hydrate and repeat. 4) Dehydration -Rehydrating; likely 2/2 global process. 5) Hx Severe MR -Noted; avoid severe fluctuations in BP. Reviewed old echo and CV consult. 6) Hx CAD -Hold ASA; reconcile and continue appropriate home medications. 7) Hx GERD -On IV protonix 2/2 #1; monitor 8) Hx HTN -Monitor; keep <160 9) Hx Anxiety -Reconcile and continue appropriate home meds 10) Elevated h/h -Due to dehydration; trend 11) Dementia -Reviewed code status with HCP 12) UA positive -Very dehydrated; he cannot say if he is having sx or not. Would be covered by merrem at any rate. Followup the cultures and if needed adjust abx PRN FENA -LR@100 -PRN replete -NPO -BRP DNR but may be intubated
[2018-05-02] MEDS ORDERED: VANCOMYCIN 1 GM in D5W (PRE-DOCKED) 1,000 MG/250 ML IVPB ONE (02:31)
[2018-05-02 02:42] LABS: EPI CELLS 0.8 /HPF (FEW); HYALINE CASTS 27 /hpf (NEGATIVE); URINE APPEARANCE CLOUDY; URINE BACTERIA 57.06 /hpf (NEGATIVE); URINE BILIRUBIN 1+ (<2.0 mg/dL); URINE COLOR DK YELLOW; URINE GLUCOSE (UA) NEGATIVE (NEGATIVE); URINE KETONE TRACE (NEGATIVE); URINE LEUK ESTERASE 2+ (NEGATIVE); URINE NITRITE NEGATIVE (NEGATIVE); URINE PROTEIN 1+ (NEGATIVE); URINE RBC 18 /hpf (0-3); URINE UROBILINOGEN 0.2 mg/dL (0.2-1.0); URINE WBC 74 /hpf (3-5)
[2018-05-02] MEDS ORDERED: ACETAMINOPHEN 325 MG TABLET (FP) PO PRN (03:13)
[2018-05-02] MEDS ORDERED: VANCOMYCIN 1 GRAM (PRE-DOCKED) 1,000 MG/250 ML BAG IVPB ONE (03:14)
[2018-05-02] MEDS ORDERED: SODIUM CHLORIDE 1,000 ML IV SCH (03:15)
[2018-05-02] MEDS ORDERED: ALBUTEROL SO4 2.5/IPRATROPIUM 0.5 INH SOL 3 ML VIAL.NEB. NEB PRN (03:21)
[2018-05-02] MEDS ORDERED: ALBUTEROL SO4 0.083% IH SOL 2.5 MG/3 ML VIAL.NEB. NEB PRN (03:22)
--- NOTE | 2018-05-02 04:00 | CONSULT ---
Consultation: CONSULT REQUEST: We have been asked to medically evaluate this patient for ( Acute hypoxic respiratory failure- ICU admission). PCP: Dr. Levar Alegria HISTORY OF PRESENT ILLNESS: Patient on bipap, unable to provide detailed history. Patient is an 82 year old male from [facility] was brought in by EMS for evaluation of shortness of breath and bloody diarrhoea. As per report, he had an episode of massive watery diarrhoea with blood and nausea, vomiting at around 8 pm yesterday 05/01 hence brought in to the ED for further evaluation. In the ED, patient was found to be congested and in respiratory distress. Labs significant for leukocytosis of 18.2, H/H 18/52 lactic acid of 3.2, tachycardic , BP 104/61 mmHg. stool occult positive. Last EGD/Colonoscopy unknown. Evaluated the patient in the ED, on Bipap, maintaining saturation about 95 %, BP 104/61 mmHg, HR 86 bpm, clinically he looks like he is in respiratory distress. Will admit the patient in ICU for further monitoring. As per ED resident who spoke with patients daughter regarding code status, he is a DNR but not DNI. Paper work from [place] reports DNR. Patient was recently admitted at [facility] on 04/13/17-04/17/15 for UTI and frequent falls PAST MEDICAL HISTORY: Dementia, Anxiety, Hypertension, COPD (2-3L O2), CAD, GERD , Left carotid stenosis ALLERGIES: Penicillin PAST SURGICAL HISTORY: Appendectomy SOCIAL HISTORY: Lives in [facility], wheel chair bound. Smoking: None Alcohol: None Drugs: None OCCUPATION: Retired TRAVEL: None REVIEW OF SYSTEMS: CONSTITUTIONAL: Absent: fever, chills, diaphoresis, generalized weakness, malaise, loss of appetite, weight change HEENT: Absent: rhinorrhea, nasal congestion, throat pain, throat swelling, difficulty swallowing, mouth swelling, ear pain, eye pain, visual changes CARDIOVASCULAR: Absent: chest pain, syncope, palpitations, irregular heart rate, lightheadedness , peripheral edema RESPIRATORY: Present: cough, shortness of breath, dyspnea even at rest. Absent: orthopnea, wheezing, stridor, hemoptysis GASTROINTESTINAL: Absent: abdominal pain, abdominal distension, nausea, vomiting, diarrhea, constipation, melena, hematochezia GENITOURINARY: Absent: dysuria, frequency, urgency, hesitancy, hematuria, flank pain, genital pain MUSCULOSKELETAL: Absent: myalgia, arthralgia, joint swelling, back pain, neck pain SKIN: Absent: rash, itching, pallor HEMATOLOGIC/IMMUNOLOGIC: Absent: easy bleeding, easy bruising, lymphadenopathy, frequent infections ENDOCRINE: Absent: unexplained weight gain, unexplained weight loss, heat intolerance, cold intolerance NEUROLOGIC: Absent: headache, focal weakness or paresthesias, dizziness, unsteady gait, seizure, mental status changes, bladder or bowel incontinence PSYCHIATRIC: Absent: anxiety, depression, suicidal or homicidal ideation, hallucinations. PHYSICAL EXAMINATION Vital Signs - 24 hr 05/01/18 05/02/18 05/02/18 23:00 02:20 03:04 Temperature 96.6 F L 98.9 F 98.3 F Pulse Rate 121 H Pulse Rate [ 92 H 92 H Radial] Respiratory 24 H 20 20 Rate Blood Pressure 153/81 Blood Pressure 109/69 115/71 [Right Arm] O2 Sat by Pulse 97 94 L 98 Oximetry (%) 05/02/18 03:05 Temperature Pulse Rate Pulse Rate [ Radial] Respiratory Rate Blood Pressure Blood Pressure [Right Arm] O2 Sat by Pulse 97 Oximetry (%) GENERAL: Elderly male, thinly built, lying in bed, in respiratory distress on bipap. EYES: No pallor or icterus. EARS, NOSE, THROAT: Dry mucous membranes. NECK: Supple, no JVD. LUNGS: B/L diffuse crackles even without auscultation, occasional wheeze. HEART: Tachycardic, Regular rate and rhythm, normal S1 and S2 without murmur. ABDOMEN: Soft, tender to palpation in LUQ, no organomegaly, BS +. UPPER EXTREMITIES: No peripheral edema. LOWER EXTREMITIES: No peripheral edema. NEUROLOGICAL: No facial droop, drowsy, but arousable. Gait not observed. SKIN: No lesions or rashes. Laboratory Results - last 24 hr 05/02/18 05/02/18 05/02/18 00:30 00:46 00:56 WBC 18.2 H RBC 5.20 Hgb 18.2 H Hct 52.7 H D MCV 101.5 H MCH 35.1 H MCHC 34.6 RDW 13.6 Plt Count 212 MPV 9.3 Absolute Neuts (auto) 16.0 H Neutrophils % 87.9 H D Lymphocytes % 3.1 L D Monocytes % 8.9 Eosinophils % 0.0 D Basophils % 0.1 Nucleated RBC % 0 PT with INR INR PTT (Actin FS) Puncture Site Right radial ABG pH 7.31 L ABG pCO2 at Pt Temp 38.4 ABG pO2 at Pt Temp 49.0 L ABG HCO3 18.6 L ABG O2 Sat (Measured) 84.9 L ABG O2 Content 20.7 ABG Base Excess -6.8 L Vishnu Test Positive VBG pH POC VBG pCO2 POC VBG pO2 VBG HCO3 VBG O2 Sat (Moon) VBG Base Excess Carboxyhemoglobin 1.2 Methemoglobin 0.5 O2 Delivery Device Bipap Oxygen Flow Rate 100% Vent Mode S/t Vent Rate 20 PEEP 0.0 Pressure Support Vent 16/6 Sodium Potassium Chloride Carbon Dioxide Anion Gap BUN Creatinine Creat Clearance w eGFR Random Glucose Lactic Acid Calcium Total Bilirubin AST ALT Alkaline Phosphatase Troponin I Total Protein Albumin Urine Color Urine Appearance Urine pH Ur Specific [place] Urine Protein Urine Glucose (UA) Urine Ketones Urine Blood Urine Nitrite Urine Bilirubin Urine Urobilinogen Ur Leukocyte Esterase Urine WBC (Auto) Urine RBC (Auto) Urine Casts (Auto) U Epithel Cells (Auto) Urine Bacteria (Auto) Stool Occult Blood Positive Blood Type Antibody Screen 05/02/18 05/02/18 05/02/18 00:56 00:56 00:56 WBC RBC Hgb Hct MCV MCH MCHC RDW Plt Count MPV Absolute Neuts (auto) Neutrophils % Lymphocytes % Monocytes % Eosinophils % Basophils % Nucleated RBC % PT with INR 15.10 H INR 1.28 H PTT (Actin FS) 32.4 Puncture Site ABG pH ABG pCO2 at Pt Temp ABG pO2 at Pt Temp ABG HCO3 ABG O2 Sat (Measured) ABG O2 Content ABG Base Excess Vishnu Test VBG pH POC VBG pCO2 POC VBG pO2 VBG HCO3 VBG O2 Sat (Moon) VBG Base Excess Carboxyhemoglobin Methemoglobin O2 Delivery Device Oxygen Flow Rate Vent Mode Vent Rate PEEP Pressure Support Vent Sodium 143 Potassium 3.5 Chloride 112 H Carbon Dioxide 19 L Anion Gap 11 BUN 46 H Creatinine 1.4 H Creat Clearance w eGFR 48.28 Random Glucose 251 H Lactic Acid Calcium 8.8 Total Bilirubin 0.8 AST 23 ALT 12 L Alkaline Phosphatase 104 Troponin I 0.04 Total Protein 8.2 Albumin 3.9 Urine Color Urine Appearance Urine pH Ur Specific [place] Urine Protein Urine Glucose (UA) Urine Ketones Urine Blood Urine Nitrite Urine Bilirubin Urine Urobilinogen Ur Leukocyte Esterase Urine WBC (Auto) Urine RBC (Auto) Urine Casts (Auto) U Epithel Cells (Auto) Urine Bacteria (Auto) Stool Occult Blood Blood Type Antibody Screen 05/02/18 05/02/18 05/02/18 01:16 01:16 01:16 WBC RBC Hgb Hct MCV MCH MCHC RDW Plt Count MPV Absolute Neuts (auto) Neutrophils % Lymphocytes % Monocytes % Eosinophils % Basophils % Nucleated RBC % PT with INR INR PTT (Actin FS) Puncture Site ABG pH ABG pCO2 at Pt Temp ABG pO2 at Pt Temp ABG HCO3 ABG O2 Sat (Measured) ABG O2 Content ABG Base Excess Vishnu Test VBG pH 7.31 POC VBG pCO2 32.8 L POC VBG pO2 47.8 H VBG HCO3 15.9 L VBG O2 Sat (Moon) 82.5 H VBG Base Excess -9.0 L Carboxyhemoglobin Methemoglobin O2 Delivery Device Oxygen Flow Rate Vent Mode Vent Rate PEEP Pressure Support Vent Sodium Potassium Chloride Carbon Dioxide Anion Gap BUN Creatinine Creat Clearance w eGFR Random Glucose Lactic Acid 3.2 H* Calcium Total Bilirubin AST ALT Alkaline Phosphatase Troponin I Total Protein Albumin Urine Color Urine Appearance Urine pH Ur Specific [place] Urine Protein Urine Glucose (UA) Urine Ketones Urine Blood Urine Nitrite Urine Bilirubin Urine Urobilinogen Ur Leukocyte Esterase Urine WBC (Auto) Urine RBC (Auto) Urine Casts (Auto) U Epithel Cells (Auto) Urine Bacteria (Auto) Stool Occult Blood Blood Type AB POSITIVE Antibody Screen Negative 05/02/18 02:30 WBC RBC Hgb Hct MCV MCH MCHC RDW Plt Count MPV Absolute Neuts (auto) Neutrophils % Lymphocytes % Monocytes % Eosinophils % Basophils % Nucleated RBC % PT with INR INR PTT (Actin FS) Puncture Site ABG pH ABG pCO2 at Pt Temp ABG pO2 at Pt Temp ABG HCO3 ABG O2 Sat (Measured) ABG O2 Content ABG Base Excess Vishun Test VBG pH POC VBG pCO2 POC VBG pO2 VBG HCO3 VBG O2 Sat (Moon) VBG Base Excess Carboxyhemoglobin Methemoglobin O2 Delivery Device Oxygen Flow Rate Vent Mode Vent Rate PEEP Pressure Support Vent Sodium Potassium Chloride Carbon Dioxide Anion Gap BUN Creatinine Creat Clearance w eGFR Random Glucose Lactic Acid Calcium Total Bilirubin AST ALT Alkaline Phosphatase Troponin I Total Protein Albumin Urine Color Dk yellow Urine Appearance Cloudy Urine pH 5.0 Ur Specific [place] 1.021 Urine Protein 1+ Urine Glucose (UA) Negative Urine Ketones Trace H Urine Blood 2+ Urine Nitrite Negative Urine Bilirubin 1+ H Urine Urobilinogen 0.2 Ur Leukocyte Esterase 2+ Urine WBC (Auto) 74 Urine RBC (Auto) 18 Urine Casts (Auto) 27 U Epithel Cells (Auto) 0.8 Urine Bacteria (Auto) 57.06 Stool Occult Blood Blood Type Antibody Screen Active Medications Generic Name Dose Route Start Last Admin Trade Name Freq PRN Reason Stop Dose Admin Acetaminophen 650 mg 05/02/18 03:13 Tylenol - PO QID PRN PAIN Albuterol Sulfate 1 amp 05/02/18 03:22 Ventolin 0.083% Nebulizer Soln - NEB Q4H PRN SHORT OF BREATH/WHEEZING Albuterol/Ipratropium 1 amp 05/02/18 03:21 Duoneb - NEB Q4H PRN SHORTNESS OF BREATH Chlorhexidine Gluconate 1 applic 05/02/18 22:00 Hibiclens For Decolonization - TP HS GI Heparin Sodium (Porcine) 5,000 unit 05/02/18 10:00 Heparin - SQ BID [facility] Sodium Chloride 1,000 mls @ 75 mls/hr 05/02/18 03:15 05/02/18 03:21 Normal Saline - IV 75 mls/hr ASDIR GI Administration Mupirocin 1 applic 05/02/18 10:00 Bactroban Ointment (For Decolonization) - NS 05/07/18 09:59 BID [facility] Pantoprazole Sodium 40 mg 05/02/18 10:00 Protonix Iv IVPUSH DAILY [facility] Venlafaxine HCl 37.5 mg 05/02/18 10:00 Effexor Xr - PO BID [facility] 04/30 US carotids: left moderate to large plaque (6mm thickness) internal carotid artery with 50-69% stenosis ASSESSMENT/PLAN: Patient is an 80 year old male recently admitted for fall and UTI, has a significant PMHx of dementia, anxiety, HTN, COPD, CAD, GERD, carotid stenosis BIBEMS from [facility] for evaluation of diarrhoea, vomiting and respiratory distress, on bipap now, admitting to ICU for further monitoring. # Severe sepsis likely GI source ? colitis Has leukocytosis of 18, Tachycardic, tachypenic, lactic acid of 3.2 Lactic acidosis could be from dehydration as all labs also reflects hemoconcentration with H/H 18/32 Trend lactic acid. Was given a L of IV NS. Will continue IV LR @ 83 mls/hr Dose of Vanc and Flagyl was given in the ED. Pt is PCN allergic. Will start Meropenam 1gm Q8H (needs broader coverage as pt is from [place]). ID consult requested (Dr. Sheffield) Blood cultures/urine cultures sent before the abx was given Abd/Pelvis CT pending- r/o colitis C. diff ordered (pt was on abx for UTI 3 weeks ago) # ? GI bleed Stool for occult negative. Deferred per rectal exam. IV Protonix drip started. GI consult requested (Dr. Perkins) As per EMR, patient had gastric volvulus in 2015, was managed conservatively Last EGD/Colonoscopy unknown # Acute hypoxic respiratory failure likely secondary to COPD Shortness of breath +. ABG shows metabolic acidosis: pH:7.31; Co2 38, po2 49 , Hco3 19 Continue Bipap. Repeat ABG at 6 am. Flu pending Repeat CXR. CXR done in the ED is poor quality IV Solumedrol 60 mg BID Albuterol 0.083% nebs PRN Duoneb QID # Dementia and anxiety: On Quetiapine 25 mg PO HS ; Venlafaxine 37.5 mg PO BID ; clonazePAM 0.5 mg PO BID. For now, hold PO meds as patient is on Bipap # HTN now normotensive IV Hydration. Hold BP meds. # Hx of Bradycardia Last admission, his rate dropped to 30s at night without prolonged pauses and APCs # CAD ASA 81 daily, Hold aspirin due to possible GI bleed. # Carotid Stenosis USG of carotids done in 04/30. Vascular was consulted last admission, patient doens't n # GERD IV Protonix # FEN IV LR @ 83 mls/hr Electrolytes, repeat in AM NPO # Prophylaxis For DVT: SCDs For GI: Protonix drip # Code Status: DNR. Daughter agrees for intubation if required. Need to clarify more about code status. Case discussed with Dr. Zarate. Dispo: We will continue to follow the patient. Thank you for this consultative opportunity. Visit type - Emergency Visit Emergency Visit: Yes ED Registration Date: 05/02/18 Care time: The patient presented to the Emergency Department on the above date and was hospitalized for further evaluation of their emergent condition. - New Patient This patient is new to me today: Yes Date on this admission: 05/02/18 - Critical Care Critical Care patient: Yes Total Critical Care Time (in minutes): 35 Critical Care Statement: The care of this patient involved high complexity decision making to prevent further life threatening deterioration of the patient 's condition and/or to evaluate & treat vital organ system(s) failure or risk of failure.
[2018-05-02] MEDS ORDERED: PANTOPRAZOLE SODIUM 80 MG in SODIUM CHLORIDE 100 ML IVPB SCH (05:45)
[2018-05-02 06:36] LABS: ALLENS TEST POSITIVE; ARTERIAL BLD GAS O2 SATURATION 95.8 % (95-98); ARTERIAL BLOOD GAS BASE EXCESS -7.4 meq/l (-2-2); ARTERIAL BLOOD GAS PCO2 43.9 mmHg (35-45)
[2018-05-02 06:37] LABS: ARTERIAL BLOOD GAS pH 7.27 (7.35-7.45)
--- NOTE | 2018-05-02 07:37 | PN ---
Physical Exam: SUBJECTIVE: Patient seen and examined at bedside. openes eyes to sternal rub but otherwise not awake or alert. Unable to provide history. transitioned from Bipap to VM. OBJECTIVE: Vital Signs Period Temp Pulse Resp BP Sys/Linder Pulse Ox Last 24 Hr 96.6 F-98.9 F 82-121 20-24 102-153/69-81 94-98 GENERAL: The patient is lethargic but arousable to verbal and physical stimulation. HEAD: Normal with no signs of trauma. EYES: PERRL, extraocular movements intact, sclera anicteric, conjunctiva clear. No ptosis. ENT: nares patent, oropharynx clear without exudates, moist mucous membranes. NECK: Trachea midline, full range of motion, supple. LUNGS: Breath sounds equal, bilateral rhonchi, no accessory muscle use. HEART: Regular rate and rhythm, S1, S2 without murmur, rub or gallop. ABDOMEN: Soft, nontender, nondistended, normoactive bowel sounds, no guarding, no rebound, no hepatosplenomegaly, no masses. EXTREMITIES: 2+ pulses, warm, well-perfused, no edema. NEUROLOGICAL: lethargic but arousable. no facial drooping. PSYCH: lethargic but arousable. does not follow commands. SKIN: Warm, dry, normal turgor, no rashes or lesions noted Laboratory Results - last 24 hr 05/02/18 05/02/18 05/02/18 00:30 00:46 00:56 WBC 18.2 H RBC 5.20 Hgb 18.2 H Hct 52.7 H D MCV 101.5 H MCH 35.1 H MCHC 34.6 RDW 13.6 Plt Count 212 MPV 9.3 Absolute Neuts (auto) 16.0 H Neutrophils % 87.9 H D Lymphocytes % 3.1 L D Monocytes % 8.9 Eosinophils % 0.0 D Basophils % 0.1 Nucleated RBC % 0 PT with INR INR PTT (Actin FS) Puncture Site Right radial ABG pH 7.31 L ABG pCO2 at Pt Temp 38.4 ABG pO2 at Pt Temp 49.0 L ABG HCO3 18.6 L ABG O2 Sat (Measured) 84.9 L ABG O2 Content 20.7 ABG Base Excess -6.8 L Vishnu Test Positive VBG pH POC VBG pCO2 POC VBG pO2 VBG HCO3 VBG O2 Sat (Moon) VBG Base Excess Carboxyhemoglobin 1.2 Methemoglobin 0.5 O2 Delivery Device Bipap Oxygen Flow Rate 100% Vent Mode S/t Vent Rate 20 PEEP 0.0 Pressure Support Vent 16/6 Sodium Potassium Chloride Carbon Dioxide Anion Gap BUN Creatinine Creat Clearance w eGFR Random Glucose Lactic Acid Calcium Total Bilirubin AST ALT Alkaline Phosphatase Troponin I Total Protein Albumin Urine Color Urine Appearance Urine pH Ur Specific [place] Urine Protein Urine Glucose (UA) Urine Ketones Urine Blood Urine Nitrite Urine Bilirubin Urine Urobilinogen Ur Leukocyte Esterase Urine WBC (Auto) Urine RBC (Auto) Urine Casts (Auto) U Epithel Cells (Auto) Urine Bacteria (Auto) Stool Occult Blood Positive Influenza A (Rapid) Influenza B (Rapid) Blood Type Antibody Screen 05/02/18 05/02/18 05/02/18 00:56 00:56 00:56 WBC RBC Hgb Hct MCV MCH MCHC RDW Plt Count MPV Absolute Neuts (auto) Neutrophils % Lymphocytes % Monocytes % Eosinophils % Basophils % Nucleated RBC % PT with INR 15.10 H INR 1.28 H PTT (Actin FS) 32.4 Puncture Site ABG pH ABG pCO2 at Pt Temp ABG pO2 at Pt Temp ABG HCO3 ABG O2 Sat (Measured) ABG O2 Content ABG Base Excess Vishnu Test VBG pH POC VBG pCO2 POC VBG pO2 VBG HCO3 VBG O2 Sat (Moon) VBG Base Excess Carboxyhemoglobin Methemoglobin O2 Delivery Device Oxygen Flow Rate Vent Mode Vent Rate PEEP Pressure Support Vent Sodium 143 Potassium 3.5 Chloride 112 H Carbon Dioxide 19 L Anion Gap 11 BUN 46 H Creatinine 1.4 H Creat Clearance w eGFR 48.28 Random Glucose 251 H Lactic Acid Calcium 8.8 Total Bilirubin 0.8 AST 23 ALT 12 L Alkaline Phosphatase 104 Troponin I 0.04 Total Protein 8.2 Albumin 3.9 Urine Color Urine Appearance Urine pH Ur Specific [place] Urine Protein Urine Glucose (UA) Urine Ketones Urine Blood Urine Nitrite Urine Bilirubin Urine Urobilinogen Ur Leukocyte Esterase Urine WBC (Auto) Urine RBC (Auto) Urine Casts (Auto) U Epithel Cells (Auto) Urine Bacteria (Auto) Stool Occult Blood Influenza A (Rapid) Influenza B (Rapid) Blood Type Antibody Screen 05/02/18 05/02/18 05/02/18 01:16 01:16 01:16 WBC RBC Hgb Hct MCV MCH MCHC RDW Plt Count MPV Absolute Neuts (auto) Neutrophils % Lymphocytes % Monocytes % Eosinophils % Basophils % Nucleated RBC % PT with INR INR PTT (Actin FS) Puncture Site ABG pH ABG pCO2 at Pt Temp ABG pO2 at Pt Temp ABG HCO3 ABG O2 Sat (Measured) ABG O2 Content ABG Base Excess Vishnu Test VBG pH 7.31 POC VBG pCO2 32.8 L POC VBG pO2 47.8 H VBG HCO3 15.9 L VBG O2 Sat (Moon) 82.5 H VBG Base Excess -9.0 L Carboxyhemoglobin Methemoglobin O2 Delivery Device Oxygen Flow Rate Vent Mode Vent Rate PEEP Pressure Support Vent Sodium Potassium Chloride Carbon Dioxide Anion Gap BUN Creatinine Creat Clearance w eGFR Random Glucose Lactic Acid 3.2 H* Calcium Total Bilirubin AST ALT Alkaline Phosphatase Troponin I Total Protein Albumin Urine Color Urine Appearance Urine pH Ur Specific [place] Urine Protein Urine Glucose (UA) Urine Ketones Urine Blood Urine Nitrite Urine Bilirubin Urine Urobilinogen Ur Leukocyte Esterase Urine WBC (Auto) Urine RBC (Auto) Urine Casts (Auto) U Epithel Cells (Auto) Urine Bacteria (Auto) Stool Occult Blood Influenza A (Rapid) Influenza B (Rapid) Blood Type AB POSITIVE Antibody Screen Negative 05/02/18 05/02/18 05/02/18 02:30 04:50 06:30 WBC RBC Hgb Hct MCV MCH MCHC RDW Plt Count MPV Absolute Neuts (auto) Neutrophils % Lymphocytes % Monocytes % Eosinophils % Basophils % Nucleated RBC % PT with INR INR PTT (Actin FS) Puncture Site Right radial ABG pH 7.27 L ABG pCO2 at Pt Temp 43.9 ABG pO2 at Pt Temp 80.0 ABG HCO3 19.2 L ABG O2 Sat (Measured) 95.8 ABG O2 Content 22.3 H ABG Base Excess -7.4 L Vishnu Test Positive VBG pH POC VBG pCO2 POC VBG pO2 VBG HCO3 VBG O2 Sat (Moon) VBG Base Excess Carboxyhemoglobin Methemoglobin O2 Delivery Device Nonrebreather Oxygen Flow Rate 100% Vent Mode Vent Rate PEEP 0.0 Pressure Support Vent Sodium Potassium Chloride Carbon Dioxide Anion Gap BUN Creatinine Creat Clearance w eGFR Random Glucose Lactic Acid Calcium Total Bilirubin AST ALT Alkaline Phosphatase Troponin I Total Protein Albumin Urine Color Dk yellow Urine Appearance Cloudy Urine pH 5.0 Ur Specific [place] 1.021 Urine Protein 1+ Urine Glucose (UA) Negative Urine Ketones Trace H Urine Blood 2+ Urine Nitrite Negative Urine Bilirubin 1+ H Urine Urobilinogen 0.2 Ur Leukocyte Esterase 2+ Urine WBC (Auto) 74 Urine RBC (Auto) 18 Urine Casts (Auto) 27 U Epithel Cells (Auto) 0.8 Urine Bacteria (Auto) 57.06 Stool Occult Blood Influenza A (Rapid) Negative Influenza B (Rapid) Negative Blood Type Antibody Screen Active Medications Generic Name Dose Route Start Last Admin Trade Name Freq PRN Reason Stop Dose Admin Albuterol Sulfate 1 amp 05/02/18 03:22 Ventolin 0.083% Nebulizer Soln - NEB Q4H PRN SHORT OF BREATH/WHEEZING Albuterol/Ipratropium 1 amp 05/02/18 03:21 Duoneb - NEB Q4H PRN SHORTNESS OF BREATH Chlorhexidine Gluconate 1 applic 05/02/18 22:00 Hibiclens For Decolonization - TP HS GI Heparin Sodium (Porcine) 5,000 unit 05/02/18 10:00 Heparin - SQ BID GI Lactated Ringer's 1,000 ml in 1,000 mls @ 83 mls/hr 05/02/18 05:45 Lactated Ringers Solution IV ASDIR GI Meropenem 1 gm/ Dextrose 100 mls @ 200 mls/hr 05/02/18 05:45 IVPB 05/02/18 10:29 Q8H-IV GI Pantoprazole Sodium 80 mg/ 100 mls @ 10 mls/hr 05/02/18 05:45 Sodium Chloride IVPB Q10H GI 8 MG/HR Meropenem 1 gm/ Dextrose 100 mls @ 200 mls/hr 05/02/18 18:00 IVPB Q8H-IV GI Methylprednisolone Sodium Succinate 60 mg 05/02/18 05:35 Solu-Medrol - IVPUSH BID GI Mupirocin 1 applic 05/02/18 10:00 Bactroban Ointment (For Decolonization) - NS 05/07/18 09:59 BID GI 04/30 US carotids: left moderate to large plaque (6mm thickness) internal carotid artery with 50-69% stenosis ASSESSMENT/PLAN: 80 yo M w/ PMHx of dementia/mental retardation, anxiety, HTN, COPD (2-3L O2), CAD, GERD, L carotid stenosis, and recently admitted for fall and UTI, BIBEMS from [facility] for evaluation of bloody diarrhea, vomiting and respiratory distress, found to be in acute hypoxic respiratory distress and severely dehydrated with a AGMA # Severe sepsis w/ Acute hypoxic respiratory failure possibly 2/2 suspected aspiration PNA and c/b COPD vs GI source ? colitis -Febrile, tachycardic, tachypneic at presentation to ED -UA postive for UTI, pending culture -CXR no sign of acute chest process -Improving leukocytosis: 18.2>>13.5 -Lactic acidosis: 3.2>>3.4, Continue to trend -c/w IVF -ID consult requested (Dr. Sheffield) -s/p Vanc and Flagyl x1 in ED. s/p Meropenam x1 on floors -empiric vanc/flagyl/aztreonam pending cx, ID recs appreciated. (PCN allergic) -ABG - metabolic acidosis: pH:7.27; Co2 43.9 -Pending B/L LE US for DVT rule out -poor candidate for BiPAP given mental status and history of vomiting, however saturating well, and successfully Transitioned from BIPAP to Venti Mask 05/02/18 , per ICU team. if needs increased Vent/O2 support consider intubation -f/u Abd/Pelvis CT - r/o colitis -C. diff ordered (pt was on abx for UTI 3 weeks ago) -Flu negative -IV Solumedrol 60 mg BID -Albuterol 0.083% nebs PRN -Duoneb QID # ? GI bleed/BRBPR - consider infectious vs ischemic colitis. Initial specimen of stool for occult blood was positive. Second stool for occult blood was negative. noted blood in diaper this AM. repeat CBC. trend Q8H. IV Protonix gtt, can likely d/c as does not appear to be an upper GI bleed f/u Abd/Pelvis CT - r/o colitis, per GI read and d/w rads, Dilated bowel seen on CT appears to be similar to prior CT in 2016. GI consult (Dr. Perkins) As per EMR, patient had gastric volvulus in 2016, was managed conservatively Last EGD/Colonoscopy unknown -Surgery contacted by GI - per his note if persistently vomiting will need NGT and may need transfer to [facility] for surgical evaluation #AGMA- due to lactic acidosis due to sepsis. cont IVF. trend lactic acid #Elevated troponin -0.04>>0.07 -Continue to trend #CAROLANN 2/2 sepsis - Cr 1.4>>1.6, base line Cr ~.7 cont IVF. avoid nephrotoxic agents. monitor UOP # Dementia/MR and anxiety: On Quetiapine 25 mg PO HS ; Venlafaxine 37.5 mg PO BID ; clonazePAM 0.5 mg PO BID. For now, hold PO meds until pt more alert # HTN now normotensive IV Hydration. Hold BP meds. # Hx of Bradycardia Last admission, his rate dropped to 30s at night without prolonged pauses and APCs # CAD ASA 81 daily, Hold aspirin due to possible GI bleed. # Carotid Stenosis USG of carotids done in 04/30. Vascular was consulted last admission, patient doens't n # GERD Protonix # FEN IV LR @ 83 mls/hr replete prn NPO # Prophylaxis DVT: SCDs GI: Protonix drip # Code Status: DNR. Daughter agrees for intubation if required. Need to clarify more about code status. Dispo ICU Visit type - Emergency Visit Emergency Visit: Yes ED Registration Date: 05/02/18 Care time: The patient presented to the Emergency Department on the above date and was hospitalized for further evaluation of their emergent condition. - New Patient This patient is new to me today: Yes Date on this admission: 05/02/18 - Critical Care Critical Care patient: Yes Total Critical Care Time (in minutes): 40 Critical Care Statement: The care of this patient involved high complexity decision making to prevent further life threatening deterioration of the patient 's condition and/or to evaluate & treat vital organ system(s) failure or risk of failure.
[2018-05-02] MEDS ORDERED: PT OWN MED DRAWER 7, Y5N ONE ×2 (08:05→14:10)
[2018-05-02] MEDS: LACTATED RINGERS SOLUTION 1,000 ML/1,000 ML INFUS.BAG IV SCH (08:06)
[2018-05-02] MEDS: methylPREDNISolone NA SUCC 40 MG/1 ML VIAL IVPUSH SCH ×3 (08:06→22:17)
--- NOTE | 2018-05-02 08:21 | PN ---
Physical Exam: SUBJECTIVE: The patient was seen and examined. He opened his eyes to sternal rub but was otherwise not awake or alert. Unable to provide history. OBJECTIVE: Vital Signs Period Temp Pulse Resp BP Sys/Linder Pulse Ox Last 24 Hr 96.6 F-98.9 F 82-121 20-24 102-153/69-81 94-98 GENERAL: The patient is lethargic but arousable to verbal and physical stimulation. HEAD: Normal with no signs of trauma. EYES: PERRL, extraocular movements intact, sclera anicteric, conjunctiva clear. No ptosis. ENT: Ears normal, nares patent, oropharynx clear without exudates, moist mucous membranes. NECK: Trachea midline, full range of motion, supple. LUNGS: Breath sounds equal, bilateral rhonchi, no accessory muscle use. HEART: Regular rate and rhythm, S1, S2 without murmur, rub or gallop. ABDOMEN: Soft, nontender, nondistended, normoactive bowel sounds, no guarding, no rebound, no hepatosplenomegaly, no masses. EXTREMITIES: 2+ pulses, warm, well-perfused, no edema. RECTAL: no external hemorrhoids. stool in vault. enlarged prostate. NEUROLOGICAL: lethargic but arousable. no facial drooping. PSYCH: lethargic but arousable. does not follow commands. SKIN: Warm, dry, normal turgor, no rashes or lesions noted Laboratory Results - last 24 hr 05/02/18 05/02/18 05/02/18 00:30 00:46 00:56 WBC 18.2 H RBC 5.20 Hgb 18.2 H Hct 52.7 H D MCV 101.5 H MCH 35.1 H MCHC 34.6 RDW 13.6 Plt Count 212 MPV 9.3 Absolute Neuts (auto) 16.0 H Neutrophils % 87.9 H D Lymphocytes % 3.1 L D Monocytes % 8.9 Eosinophils % 0.0 D Basophils % 0.1 Nucleated RBC % 0 PT with INR INR PTT (Actin FS) Puncture Site Right radial ABG pH 7.31 L ABG pCO2 at Pt Temp 38.4 ABG pO2 at Pt Temp 49.0 L ABG HCO3 18.6 L ABG O2 Sat (Measured) 84.9 L ABG O2 Content 20.7 ABG Base Excess -6.8 L Vishnu Test Positive VBG pH POC VBG pCO2 POC VBG pO2 VBG HCO3 VBG O2 Sat (Moon) VBG Base Excess Carboxyhemoglobin 1.2 Methemoglobin 0.5 O2 Delivery Device Bipap Oxygen Flow Rate 100% Vent Mode S/t Vent Rate 20 PEEP 0.0 Pressure Support Vent 16/6 Sodium Potassium Chloride Carbon Dioxide Anion Gap BUN Creatinine Creat Clearance w eGFR Random Glucose Lactic Acid Calcium Total Bilirubin AST ALT Alkaline Phosphatase Troponin I Total Protein Albumin Urine Color Urine Appearance Urine pH Ur Specific [place] Urine Protein Urine Glucose (UA) Urine Ketones Urine Blood Urine Nitrite Urine Bilirubin Urine Urobilinogen Ur Leukocyte Esterase Urine WBC (Auto) Urine RBC (Auto) Urine Casts (Auto) U Pathogenic Cast Auto U Epithel Cells (Auto) Urine Bacteria (Auto) Urine RBC Pathogenic Casts Stool Occult Blood Positive Influenza A (Rapid) Influenza B (Rapid) Blood Type Antibody Screen 05/02/18 05/02/18 05/02/18 00:56 00:56 00:56 WBC RBC Hgb Hct MCV MCH MCHC RDW Plt Count MPV Absolute Neuts (auto) Neutrophils % Lymphocytes % Monocytes % Eosinophils % Basophils % Nucleated RBC % PT with INR 15.10 H INR 1.28 H PTT (Actin FS) 32.4 Puncture Site ABG pH ABG pCO2 at Pt Temp ABG pO2 at Pt Temp ABG HCO3 ABG O2 Sat (Measured) ABG O2 Content ABG Base Excess Vishnu Test VBG pH POC VBG pCO2 POC VBG pO2 VBG HCO3 VBG O2 Sat (Moon) VBG Base Excess Carboxyhemoglobin Methemoglobin O2 Delivery Device Oxygen Flow Rate Vent Mode Vent Rate PEEP Pressure Support Vent Sodium 143 Potassium 3.5 Chloride 112 H Carbon Dioxide 19 L Anion Gap 11 BUN 46 H Creatinine 1.4 H Creat Clearance w eGFR 48.28 Random Glucose 251 H Lactic Acid Calcium 8.8 Total Bilirubin 0.8 AST 23 ALT 12 L Alkaline Phosphatase 104 Troponin I 0.04 Total Protein 8.2 Albumin 3.9 Urine Color Urine Appearance Urine pH Ur Specific [place] Urine Protein Urine Glucose (UA) Urine Ketones Urine Blood Urine Nitrite Urine Bilirubin Urine Urobilinogen Ur Leukocyte Esterase Urine WBC (Auto) Urine RBC (Auto) Urine Casts (Auto) U Pathogenic Cast Auto U Epithel Cells (Auto) Urine Bacteria (Auto) Urine RBC Pathogenic Casts Stool Occult Blood Influenza A (Rapid) Influenza B (Rapid) Blood Type Antibody Screen 05/02/18 05/02/18 05/02/18 01:16 01:16 01:16 WBC RBC Hgb Hct MCV MCH MCHC RDW Plt Count MPV Absolute Neuts (auto) Neutrophils % Lymphocytes % Monocytes % Eosinophils % Basophils % Nucleated RBC % PT with INR INR PTT (Actin FS) Puncture Site ABG pH ABG pCO2 at Pt Temp ABG pO2 at Pt Temp ABG HCO3 ABG O2 Sat (Measured) ABG O2 Content ABG Base Excess Vishnu Test VBG pH 7.31 POC VBG pCO2 32.8 L POC VBG pO2 47.8 H VBG HCO3 15.9 L VBG O2 Sat (Moon) 82.5 H VBG Base Excess -9.0 L Carboxyhemoglobin Methemoglobin O2 Delivery Device Oxygen Flow Rate Vent Mode Vent Rate PEEP Pressure Support Vent Sodium Potassium Chloride Carbon Dioxide Anion Gap BUN Creatinine Creat Clearance w eGFR Random Glucose Lactic Acid 3.2 H* Calcium Total Bilirubin AST ALT Alkaline Phosphatase Troponin I Total Protein Albumin Urine Color Urine Appearance Urine pH Ur Specific [place] Urine Protein Urine Glucose (UA) Urine Ketones Urine Blood Urine Nitrite Urine Bilirubin Urine Urobilinogen Ur Leukocyte Esterase Urine WBC (Auto) Urine RBC (Auto) Urine Casts (Auto) U Pathogenic Cast Auto U Epithel Cells (Auto) Urine Bacteria (Auto) Urine RBC Pathogenic Casts Stool Occult Blood Influenza A (Rapid) Influenza B (Rapid) Blood Type AB POSITIVE Antibody Screen Negative 05/02/18 05/02/18 05/02/18 02:30 04:50 06:30 WBC RBC Hgb Hct MCV MCH MCHC RDW Plt Count MPV Absolute Neuts (auto) Neutrophils % Lymphocytes % Monocytes % Eosinophils % Basophils % Nucleated RBC % PT with INR INR PTT (Actin FS) Puncture Site Right radial ABG pH 7.27 L ABG pCO2 at Pt Temp 43.9 ABG pO2 at Pt Temp 80.0 ABG HCO3 19.2 L ABG O2 Sat (Measured) 95.8 ABG O2 Content 22.3 H ABG Base Excess -7.4 L Vishnu Test Positive VBG pH POC VBG pCO2 POC VBG pO2 VBG HCO3 VBG O2 Sat (Moon) VBG Base Excess Carboxyhemoglobin Methemoglobin O2 Delivery Device Nonrebreather Oxygen Flow Rate 100% Vent Mode Vent Rate PEEP 0.0 Pressure Support Vent Sodium Potassium Chloride Carbon Dioxide Anion Gap BUN Creatinine Creat Clearance w eGFR Random Glucose Lactic Acid Calcium Total Bilirubin AST ALT Alkaline Phosphatase Troponin I Total Protein Albumin Urine Color Dk yellow Urine Appearance Cloudy Urine pH 5.0 Ur Specific [place] 1.021 Urine Protein 1+ Urine Glucose (UA) Negative Urine Ketones Trace H Urine Blood 2+ Urine Nitrite Negative Urine Bilirubin 1+ H Urine Urobilinogen 0.2 Ur Leukocyte Esterase 2+ Urine WBC (Auto) 74 Urine RBC (Auto) 18 Urine Casts (Auto) 27 U Pathogenic Cast Auto Review A* U Epithel Cells (Auto) 0.8 Urine Bacteria (Auto) 57.06 Urine RBC No Result Required. Pathogenic Casts No cast seen Stool Occult Blood Influenza A (Rapid) Negative Influenza B (Rapid) Negative Blood Type Antibody Screen Active Medications Generic Name Dose Route Start Last Admin Trade Name Freq PRN Reason Stop Dose Admin Albuterol Sulfate 1 amp 05/02/18 03:22 Ventolin 0.083% Nebulizer Soln - NEB Q4H PRN SHORT OF BREATH/WHEEZING Albuterol/Ipratropium 1 amp 05/02/18 03:21 Duoneb - NEB Q4H PRN SHORTNESS OF BREATH Chlorhexidine Gluconate 1 applic 05/02/18 22:00 Hibiclens For Decolonization - TP HS GI Heparin Sodium (Porcine) 5,000 unit 05/02/18 10:00 Heparin - SQ BID GI Lactated Ringer's 1,000 ml in 1,000 mls @ 83 mls/hr 05/02/18 05:45 05/02/18 08:06 Lactated Ringers Solution IV 83 mls/hr ASDIR GI Administration Meropenem 1 gm/ Dextrose 100 mls @ 200 mls/hr 05/02/18 05:45 IVPB 05/02/18 10:29 Q8H-IV GI Pantoprazole Sodium 80 mg/ 100 mls @ 10 mls/hr 05/02/18 05:45 Sodium Chloride IVPB Q10H GI 8 MG/HR Meropenem 1 gm/ Dextrose 100 mls @ 200 mls/hr 05/02/18 18:00 IVPB Q8H-IV GI Methylprednisolone Sodium Succinate 60 mg 05/02/18 05:35 05/02/18 08:06 Solu-Medrol - IVPUSH 60 mg BID GI Administration Mupirocin 1 applic 05/02/18 10:00 Bactroban Ointment (For Decolonization) - NS 05/07/18 09:59 BID GI ASSESSMENT/PLAN: NEURO -Responsive to sternal rub -Continue to monitor #History of dementia -Meds held until off BIPAP CARDIOVASCULAR #Elevated troponin -0.04>>0.07 -Continue to trend #History of CAD -Hold ASA secondary to GIB -Hold home nitro secondary to sepsis/hypotension #Hx of HTN -Hypotensive secondary to sepsis -Hold home HTN medications -Continue to monitor # Hx of Carotid Stenosis -USG of carotids done in 04/30 with left carotid stenosis 50-60% RESPIRATORY -Acute hypoxic respiratory failure -Transitioned from BIPAP to Venti Mask 05/02/18 -Pending B/L LE US for DVT rule out #COPD Exacerbation? -Solumedrol 60 mg IV BID -Albuterol 1 amp NEB Q4H PRN -Duoneb 1 amp NEB Q4H PRN GI #GIB -History of bloody diarrhea -H/H 18.2/52.7>>17.1/50.0 --Continue to trend -Stool positive for blood initially -Now stool negative for blood -Dilated bowel seen on CT appears to be similar to prior CT in 2016. -Protonix drip -Hold home ASA -GI on board -Surgery contacted by GI - per his note if persistently vomiting will need NGT and may need transfer to [facility] for surgical evaluation -Family prefers conservative measures as medically feasible RENAL #CAROLANN -Cr 1.4>>1.6 --Continue IV fluid hydration ID #Sepsis -Febrile, tachycardic, tachypneic at presentation to ED with N/V/D -UA postive for UTI, pending culture -CXR no sign of acute chest process -Improving leukocytosis: 18.2>>13.5 --Continue to trend -Lactic acidosis: 3.2>>3.4 --Continue IV fluids, continue to trend -Meropenem per ID -Vancomycin per ID -ID on board # FEN -LR @ 83 CC/hr -Monitor Lytes -NPO for now -I/O # PROPHYLAXIS -Scds -No chemical DVT prophylaxis at this time -GI: Protonix drip DISPO -ICU -Code Status: DNR. please discuss with family or HCP Visit type - Emergency Visit Emergency Visit: Yes ED Registration Date: 05/02/18 Care time: The patient presented to the Emergency Department on the above date and was hospitalized for further evaluation of their emergent condition. - New Patient This patient is new to me today: Yes Date on this admission: 05/02/18 - Critical Care Critical Care patient: Yes Total Critical Care Time (in minutes): 35 Critical Care Statement: The care of this patient involved high complexity decision making to prevent further life threatening deterioration of the patient 's condition and/or to evaluate & treat vital organ system(s) failure or risk of failure. - Discharge Referral Referred to [facility] No
[2018-05-02 09:44] LABS: BASO % 0.1 % (0-2.0); HEMOGLOBIN 17.1 GM/dL (11.7-16.9); LYMPH % 5.4 % (8-40); MCH 35.1 pg (25.7-33.7); MCHC 34.2 g/dl (32.0-35.9); MEAN CELL VOLUME 102.5 fl (80-96); MEAN PLT VOLUME 9.2 fl (7.5-11.1); NEUT % 87.5 % (42.8-82.8); PLATELET COUNT 201 K/MM3 (134-434); RBC 4.88 M/mm3 (4.00-5.60); RDW 13.6 % (11.9-15.9); WHITE BLOOD COUNT 13.5 K/mm3 (4.0-10.0)
[2018-05-02] MEDS: MEROPENEM 1 GM in DEXTROSE 5%-WATER 100 ML IVPB SCH ×2 (09:53→13:16)
[2018-05-02 09:58] LABS: INR 1.18 (0.83-1.09)
[2018-05-02 10:00] LABS: ACTIVATED PTT 29.6 SECONDS (25.2-36.5)
[2018-05-02] MEDS ORDERED: PANTOPRAZOLE 40 MG TABLET (FP) PO SCH (10:00)
[2018-05-02] MEDS ORDERED: ISOSORBIDE MONONITRATE 30 MG TAB.SR.24H (FP) PO SCH (10:00)
[2018-05-02] MEDS ORDERED: PANTOPRAZOLE SODIUM 40 MG VIAL IVPUSH SCH ×2 (10:00)
[2018-05-02] MEDS ORDERED: VENLAFAXINE HCL 37.5 MG E.R. CAPSULE (FP) PO SCH (10:00)
[2018-05-02] MEDS ORDERED: HEPARIN NA (PORCINE) 5,000 UNITS/ML 1ML VIAL SQ SCH (10:00)
[2018-05-02] MEDS: MUPIROCIN 2% TOPICAL OINTMENT FOR DECOLONIZATION NS SCH ×2 (10:04→22:20)
[2018-05-02 10:16] LABS: ANION GAP 9 MMOL/L (8-16); BLOOD UREA NITROGEN 49 mg/dL (7-18); CALCIUM 8.1 mg/dL (8.5-10.1); CHLORIDE 113 mmol/L (98-107); CO2 22 mmol/L (21-32); CREATININE 1.6 mg/dL (0.55-1.3); GLUCOSE,RANDOM 208 mg/dL (74-106); POTASSIUM 3.8 mmol/L (3.5-5.1); SODIUM 145 mmol/L (136-145)
--- NOTE | 2018-05-02 10:56 | EKG ---
Test Reason : Blood Pressure : / mmHG Vent. Rate : 071 BPM Atrial Rate : 071 BPM P-R Int : 270 ms QRS Dur : 178 ms QT Int : 450 ms P-R-T Axes : 058 044 055 degrees QTc Int : 489 ms SINUS RHYTHM WITH 1ST DEGREE A-V BLOCK NON-SPECIFIC INTRA-VENTRICULAR CONDUCTION BLOCK ABNORMAL ECG WHEN COMPARED WITH ECG OF 02-MAY-2018 02:12, SINUS RHYTHM HAS REPLACED WIDE QRS RHYTHM VENT. RATE HAS DECREASED BY 36 BPM Confirmed by DAMON CAPUTO MD ([id number]) on 05/02/2018 10:56:15 AM Referred By: Confirmed By:DAMON CAPUTO MD
--- NOTE | 2018-05-02 11:24 | PN ---
Teaching Attending Note Name of Resident: Chance Lewis ATTENDING PHYSICIAN STATEMENT I saw and evaluated the patient. I reviewed the resident's note and discussed the case with the resident. I agree with the resident's findings and plan as documented. SUBJECTIVE:lethargic OBJECTIVE: Last Vital Signs Temp Pulse Resp BP Pulse Ox 97.1 F L 74 20 121/82 93 L 05/02/18 10:00 05/02/18 10:44 05/02/18 10:00 05/02/18 10:00 05/02/18 11:02 Intake & Output 04/29/18 04/30/18 05/01/18 05/02/18 23:59 23:59 23:59 23:59 Output Total 300 Balance -300 Weight 120 lb 9.6 oz 116 lb 6.465 oz General lethargic. opens eyes to tactile stimuli, wakes easily but falls back asleep, bitemporal wasting, prominent clavicles CV S1 S2 RRR Lungs coarse breath sounds diffusely. poor inspiratory effort Abdomen soft RUQ/RLQ tenderness no rebound or guarding Extremities no pedal edema ASSESSMENT AND PLAN: 82yo M with PMH mental retardation, CAD, HTN, anxiety presented to the ER with bloody diarrhea and respiratory distress. He was found to be in acute hypoxic respiratory distress and severely dehydrated with a AGMA 1. Acute hypoxic respiratory failure- due to suspected aspiration PNA. currently saturating well on bipap however has poor mental status.(CO2 43) may need intubation if mental status does not improve. titrate down oxygen requirements. on meropenem. ID consulted for abx selection. noted PCN allergy. 2. severe Sepsis due to suspected PNA and colitis- was on recent abx which raises suspicion for cdiff. check sepsis workup. f/u CT. on meropenem. Flu negative ID on board 3. AGMA- due to lactic acidosis due to sepsis. cont IVF. trend lactic acid 4. BRBPR- noted blood in diaper this AM. awaiting repeat CBC. trend Q8H. would need to conisder infectious vs ischemic colitis. on PPI ggt. can likely d/c as does not appear to be an upper GI bleed. trend hgb q8H. F/U CT scan 5. CAROLANN- due to sepsis. non-ogliuric. cont IVF. avoid nephrotoxic agents. monitor UOP 6. CAD 7. HTN- controlled. hold oral agents at this time 8. MR 9. DVT ppx- SCD. hold pharmcologic a t this time 10. MICU monitoring. DNR The care of this patient involved high complexity decision making to prevent further life threatening deterioration of the patient's condition and/or to evaluate & treat vital organ system(s) failure or risk of failure. 45 mins
[2018-05-02 11:28] LABS: ALBUMIN 3.4 g/dl (3.4-5.0); ALK PHOS 84 U/L (45-117); AMYLASE 58 U/L (25-115); ANION GAP 11 MMOL/L (8-16); BILIRUBIN,TOTAL 0.7 mg/dL (0.2-1); BLOOD UREA NITROGEN 50 mg/dL (7-18); CALCIUM 8.2 mg/dL (8.5-10.1); CHLORIDE 114 mmol/L (98-107); CO2 20 mmol/L (21-32); CREATININE 1.5 mg/dL (0.55-1.3); GLUCOSE,RANDOM 207 mg/dL (74-106); LIPASE 66 U/L (73-393); N-TERMINAL BNP 13081.1 pg/ml (5-450); PHOSPHOROUS 4.6 mg/dL (2.5-4.9); POTASSIUM 3.7 mmol/L (3.5-5.1); SGOT/AST 22 U/L (15-37); SGPT/ALT 12 U/L (13-61); SODIUM 145 mmol/L (136-145); TOT PROT 7.1 g/dl (6.4-8.2)
--- NOTE | 2018-05-02 11:42 | CON.GI ---
Consult Consult Specialty:: GI Referred by:: Hospitalist Service Reason for Consultation:: Rectal bleeding - History of Present Illness Chief Complaint: Patient lethargic on FM O2. Does not give focal complaints History of Present Illness: 82M transferred from [place] for evaluation of rectal bleeeding, diarrhea and congestion. Per Mr. Damon's nuse, vomiting was reported as well. In ED triage vitals revealed Him to be afebrile with a P: 121 BP: 153/81. WBC was 18.2 and hgb was 18.2. AM Hgb is 17. Initial specimen of stool for occult blood was positive. Second stool for occult blood was negative. He has an abnormal CT scan of the abodmen and pelvis that I reviewed with Dr. Mart. he was uncertain if the findings in the LUQ reflected a herniation of stomach and bowel into the left thoracic cavity or if this represented and extremely raised left diaphragm. He also noted intraabdominal dilated small bowel loops raising question of a SBO/PSBO. It appears as though Mr. Damon had a similar presentation in 2016 when he was evaluated by launching pad mechanic Dr. Chet Marsh. Dr. Marsh commented that there was concern for air in the gastric wall (not appreciated now by Dr. 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 The patient was evaluated by general surgeon Dr. Dale Pretty who felt that the patient had a significant paraesophageal hernia causing vascular compromise to the stomach. He advised transfer to tertiary care center as well. It appears as though he was transferred to [facility]. I spoke to his sister via telephone today. She does recall that he was transferred to [place]. She does not recall him having a surgery there. She believes that she may have had a prior hernia repair but was uncertain as to the specifics of the surgery or when it was performed. The chart describes appendectomy, however, he does have a left paramedian abdominal surgical scar of unclear origin. Currently, there has been no vomiting or rectal bleeding since admission. There has been no copious diarrhea since admission and the nurse describes a smear of stool this morning. He is currently on 50% FM O2. 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[employer]ER: Yes: Dementia Cardio/Vascular: Yes: CAD (no history available ), HTN, Hyperlipdemia Gastrointestinal: Yes: GERD, Hiatal Hernia (large left sided paraesophageal hernia) Psych: Yes: Anxiety - Past Surgical History Past Surgical History: Yes: Appendectomy Additional Surgical History: Left paradmedian surgical scar of unclear etiology - Alcohol/Substance Use Hx Alcohol Use: No - Smoking History Smoking history: Unknown if ever smoked Have you smoked in the past 12 months: No - Social History Usual Living Arrangement: [facility] ADL: Support Services Home Medications - Allergies Allergies/Adverse Reactions: Allergies Allergy/AdvReac Type Severity Reaction Status Date / Time Penicillins Allergy Verified 05/01/18 23:41 - Home Medications Home Medications: Ambulatory Orders Acetaminophen [Tylenol] 650 mg PO QID PRN 01/27/16 Aspirin [ASA -] 81 mg PO DAILY 01/27/16 Docusate Sodium [Colace -] 200 mg PO HS 01/27/16 Isosorbide Mononitrate [Imdur -] 30 mg PO DAILY 01/27/16 Omeprazole Magnesium [Prilosec] 20 mg PO DAILY 01/27/16 Quetiapine Fumarate [Seroquel -] 25 mg PO HS 01/27/16 Venlafaxine HCl ER [Effexor Xr -] 37.5 mg PO BID 01/27/16 clonazePAM [Klonopin -] 0.5 mg PO BID 01/27/16 Albuterol 0.083% Nebulizer Madeleine [Ventolin 0.083% Nebulizer Soln -] 1 amp NEB Q4H PRN #0 amp 02/02/16 Aa/Hydrolyzed Collagen, Whey [Lps Neutral Flavor Liquid] 30 ml PO TID 03/03/16 Cholecalciferol (Vitamin D3) [Vitamin D3 -] 1,000 unit PO DAILY 04/12/17 Propylene Glycol/Peg 400/Pf [Systane 0.3-0.4% Eye Drops] 2 drop OU TID 04/12/17 Sulfamethoxazole/Trimethoprim [Bactrim Ds -] 1 tab PO DAILY #6 tablet 04/16/17 Family Disease History - Family Disease History Family History: Unable to Obtain Review of Systems Unable to obtain ROS, reason: Patient lethargic Physical Exam-GI Vital Signs: Vital Signs Temperature 97.1 F L 05/02/18 10:00 Pulse Rate 74 05/02/18 10:44 Respiratory Rate 20 05/02/18 10:00 Blood Pressure 121/82 05/02/18 10:00 O2 Sat by Pulse Oximetry (%) 93 L 05/02/18 11:02 Constitutional: Yes: Calm Eyes: No: Sclera Icterus Cardiovascular: Yes: Regular Rate and Rhythm (heart sounds obscured by upper airway noise) Respiratory: Yes: Rhonchi (bilaterally) Gastrointestinal Inspection: Yes: Scars (RLQ, Left paramedian possibly extending into a horizontal upper abdominal scar). No: Distention ...Auscultate: Yes: Hypoactive Bowel Sounds ...Palpate: No: Tenderness (No grimacing upon palpation) ...Percussion: Yes: Tympanitic (LUQ tympany, Mild tympany mid abdomen) ...Rectal Exam: Yes: Other (No external lesions, no watery diarrhea, light thomas soft stool in rectal vault) Edema: No (No LE edema) Neurological: Yes: Lethargy Labs: CBC, BMP 05/02/18 08:42 05/02/18 08:42 INR, PTT INR 1.18 (0.83-1.09) H 05/02/18 08:42 Hepatic Panel Total Bilirubin 0.7 mg/dL (0.2-1) 05/02/18 08:42 AST 22 U/L (15-37) 05/02/18 08:42 ALT 12 U/L (13-61) L 05/02/18 08:42 Alkaline Phosphatase 84 U/L (45-117) 05/02/18 08:42 Albumin 3.4 g/dl (3.4-5.0) 05/02/18 08:42 Problem List - Problems (1) Rectal bleeding Assessment/Plan: No significant bleeding, light thomas stool noted on recta and benign abdominal physical exam. Continue to monitor. Given anatomical concerns, and patioent's overall status, colonoscopy high risk. Explained to his sister. Code(s): K62.5 - HEMORRHAGE OF ANUS AND RECTUM (2) Diarrhea Assessment/Plan: No significant diarrhea since admission with soft formed stool noted on rectal exam If diarrhea resumes, stool for C. Diff / culture Code(s): R19.7 - DIARRHEA, UNSPECIFIED (3) Bowel obstruction Assessment/Plan: Dilated loops of intraabdominal small bowel loops as well as stomach and bowel loops in the LUQ. Similar to prior CT scan findings in 2016. No air in gastric wall. Called surgery to evaluate. Spoke with Dr. Posey and explained anatomic concerns noted on current and previous AXR. If persistent vomiting, NGT and may need transfer to [facility] for surgical evaluation. From my discussion with his sister, she would prefer conservative measures as medically feasible. Code(s): K56.60 - UNSPECIFIED INTESTINAL OBSTRUCTION * DO NOT USE * Qualifiers: Intestinal obstruction type: unspecified (4) Dehydration Assessment/Plan: IV hydration per primary team ? if UTI contributing to current clinical situation Code(s): E86.0 - DEHYDRATION
[2018-05-02 12:50] LABS: N-TERMINAL BNP 12239.5 pg/ml (5-450)
--- NOTE | 2018-05-02 13:12 | PN ---
Progress Note (short form) - Note Progress Note: ID CONSULT DICTATED SEPSIS R/O HCAP R/O SEPSIS SECONDARY TO ? C DIFFICILE COLITIS SECONDARY TO RECENT ANTIBIOTIC TX ACUTE EXACERBACTION COPD LACTIC ACIDOSIS LEUKOCYTOSIS RENAL INSUFFICIENCY HX PCN ALLERGY PENDING C/S EMPIRIC VANCOMYCIN/ AZTREONAM/ FLAGYL
--- NOTE | 2018-05-02 13:12 | PN ---
Teaching Attending Note Name of Resident: Noemi Lugo ATTENDING PHYSICIAN STATEMENT I saw and evaluated the patient. I reviewed the resident's note and discussed the case with the resident. I agree with the resident's findings and plan as documented. SUBJECTIVE: Pt seen and examined in the ICU. Lethargic but arousable on BiPAP. OBJECTIVE: Vital Signs Period Temp Pulse Resp BP Sys/Linder Pulse Ox Last 24 Hr 96.6 F-98.9 F 74-121 18-24 102-153/69-89 93-99 Intake & Output 04/29/18 04/30/18 05/01/18 05/02/18 23:59 23:59 23:59 23:59 Output Total 300 Balance -300 Weight 54.703 kg 52.8 kg Gen: lethargic but arousable Heart: RRR Lung: scattered rhonchi Abd: soft, nontender Ext: no edema CBC, BMP 05/02/18 08:42 05/02/18 08:42 Active Medications Albuterol Sulfate (Ventolin 0.083% Nebulizer Soln -) 1 amp NEB Q4H PRN PRN Reason: SHORT OF BREATH/WHEEZING Albuterol/Ipratropium (Duoneb -) 1 amp NEB Q4H PRN PRN Reason: SHORTNESS OF BREATH Chlorhexidine Gluconate (Hibiclens For Decolonization -) 1 applic TP HS GI Lactated Ringer's (Lactated Ringers Solution) 1,000 ml in 1,000 mls @ 83 mls/ hr IV ASDIR GI Last Admin: 05/02/18 08:06 Dose: 83 mls/hr Pantoprazole Sodium 80 mg/ (Sodium Chloride) 100 mls @ 10 mls/hr IVPB Q10H GI Last Admin: 05/02/18 09:53 Dose: 10 mls/hr Meropenem 1 gm/ Dextrose 100 mls @ 200 mls/hr IVPB Q8H-IV GI Methylprednisolone Sodium Succinate (Solu-Medrol -) 60 mg IVPUSH BID GI Last Admin: 05/02/18 08:06 Dose: 60 mg Mupirocin (Bactroban Ointment (For Decolonization) -) 1 applic NS BID GI Stop: 05/07/18 09:59 Last Admin: 05/02/18 10:04 Dose: 1 applic ASSESSMENT AND PLAN: Acute Hypoxic Respiratory Failure UTI r/o Pneumonia Severe Sepsis Acute Kidney Injury Lactic Acidosis Acute COPD Exacerbation r/o GI Bleed HTN Mental Retardation - IV antibiotics - f/u cultures - IVF - monitor urine output, creatinine - trend lactate - medrol - inhaled bronchodilators - poor candidate for BiPAP given mental status and history of vomiting - protonix - DVT prophylaxis - continue ICU monitoring critical care time spent in reviewing chart, evaluating patient and formulating plan 35 min
[2018-05-02 13:35] LABS: EPI CELLS 1.4 /HPF (0-5); HYALINE CASTS 15 /hpf (0-8); URINE APPEARANCE TURBID; URINE BACTERIA 4.572 /hpf (NEGATIVE); URINE BILIRUBIN 1+ (<2.0 mg/dL); URINE COLOR DK YELLOW; URINE GLUCOSE (UA) TRACE (NEGATIVE); URINE KETONE TRACE (NEGATIVE); URINE LEUK ESTERASE 1+ (NEGATIVE); URINE NITRITE NEGATIVE (NEGATIVE); URINE PROTEIN 1+ (NEGATIVE); URINE WBC 20 /hpf (0-5)
[2018-05-02] MEDS: VANCOMYCIN 1 GRAM (PRE-DOCKED) 1,000 MG/250 ML BAG IVPB SCH (14:12)
--- NOTE | 2018-05-02 14:34 | CONS ---
DATE OF CONSULTATION: 05/02/2018 The patient is an 82-year-old male who is evaluated for sepsis. History is obtained from the chart as he cannot give a history. He was admitted from his intermediate with reports of nausea and vomiting as well as large amounts of watery diarrhea. Symptoms began on the night prior to admission. He was evaluated in the emergency room, where he was noted to be short of breath. He was placed on a non-rebreather mask. His course was complicated by hypothermia, tachycardia, tachypnea. Preliminary lab work revealed a white blood cell count of 18,000. Chest x-ray was read as negative for acute infiltrate. A CAT scan of the abdomen and pelvis was performed and showed a distended stomach with apparent herniation into the left thoracic cavity, which appeared unchanged from his CAT scan from 2016. There was no evidence of colitis, according to the radiologist, on the CAT scan. Cultures were obtained. He was empirically treated with vancomycin, Flagyl, and meropenem. He has a history of PENICILLIN allergy. At the present time, he is awake, he is on a Ventimask, he appears slightly short of breath at rest. He is able to nod to answer simple questions. He denies any pain. His breathing is nonlabored. He has been afebrile. Patient was recently hospitalized from April 13 through April 16 for urinary tract infection. Past medical history positive for dementia, hypertension, COPD, coronary artery disease, gastroesophageal reflux. PAST SURGICAL HISTORY: Status post appendectomy. Allergies to PENICILLIN, the nature of the allergy not known. On review of his chart from [facility], it appears he has not received cephalosporins in the past. Nature of the allergy not documented. MEDICATIONS: Tylenol, aspirin, Colace, Imdur, Prilosec, Seroquel, Effexor, Klonopin. SOCIAL HISTORY: Resides in a intermediate facility. No active tobacco or alcohol use. SYSTEMS REVIEW: Neurologic: Positive for dementia. Cardiac: Negative chest pain or palpitations. Respiratory: As per HPI. Gastrointestinal: As per HPI. Genitourinary: Negative for urinary tract infection. LABORATORY DATA: White count 18.2, 87 neutrophils, 3 lymphocytes, 8 monocytes, hematocrit 52.7, platelet count 212. BUN 46, creatinine 1.4, lactic acid 3.2. Liver enzymes normal. Urinalysis: 74 white cells, influenza swab negative. Cultures are pending. PHYSICAL EXAMINATION: General: He is chronically ill appearing, cachectic. Vital Signs: Temperature 98.4. Blood pressure 136/89. Pulse 75, regular. Respiration 20 per minute. Eyes: Sclerae anicteric. Heart Sounds: S1, S2. Lungs: Diminished breath sounds bilaterally. Abdomen: Soft. No tenderness elicited. No mass, rebound or rigidity. Extremities: Negative for edema. IMPRESSION: 1. Sepsis syndrome, unclear source. 2. Rule out intermediate acquired pneumonia. 3. Rule out recurrent urinary tract infection. 4. Lactic acidosis. 5. Renal insufficiency. 6. Rule out Clostridium difficile colitis secondary to recent antibiotic therapy. Pending sepsis workup, empiric antibiotic coverage for potential lung, gastrointestinal, and genitourinary tract source of infection with vancomycin, Azactam, Flagyl, in this PENICILLIN allergic patient. Continue supportive measures. Await cultures. Critical care time spent: 35 minutes. Thank you for the kind referral. GIFTY MARAVILLA M.D. [id number]
[2018-05-02 15:12] LABS: BASO % 0.1 % (0-2.0); HEMATOCRIT 45.2 % (35.4-49); HEMOGLOBIN 15.7 GM/dL (11.7-16.9); MCH 34.8 pg (25.7-33.7); MCHC 34.6 g/dl (32.0-35.9); MEAN CELL VOLUME 100.5 fl (80-96); MEAN PLT VOLUME 8.8 fl (7.5-11.1); MONO % 3.1 % (3.8-10.2); NEUT % 90.8 % (42.8-82.8); PLATELET COUNT 180 K/MM3 (134-434); RDW 13.5 % (11.9-15.9); WHITE BLOOD COUNT 13.8 K/mm3 (4.0-10.0)
[2018-05-02] MEDS ORDERED: PANTOPRAZOLE SODIUM 40 MG VIAL IVPUSH ONE (15:31)
[2018-05-02 15:46] LABS: ALBUMIN 2.9 g/dl (3.4-5.0); ALK PHOS 70 U/L (45-117); ANION GAP 8 MMOL/L (8-16); BILIRUBIN,TOTAL 0.6 mg/dL (0.2-1); BLOOD UREA NITROGEN 52 mg/dL (7-18); CALCIUM 7.7 mg/dL (8.5-10.1); CHLORIDE 116 mmol/L (98-107); CO2 21 mmol/L (21-32); CREATININE 1.2 mg/dL (0.55-1.3); GLUCOSE,RANDOM 202 mg/dL (74-106); POTASSIUM 3.2 mmol/L (3.5-5.1); SGOT/AST 18 U/L (15-37); SGPT/ALT 11 U/L (13-61); SODIUM 144 mmol/L (136-145); TOT PROT 6.4 g/dl (6.4-8.2)
[2018-05-02] MEDS: AZTREONAM 1 GM in DEXTROSE 5%-WATER - 50 ML IVPB SCH (16:35)
[2018-05-02] MEDS: KCL 10 MEQ IVPB 10 MEQ/100 ML INFUS.BAG IVPB SCH ×3 (16:55→18:57)
[2018-05-02] MEDS ORDERED: MEROPENEM 1 GM in DEXTROSE 5%-WATER 100 ML IVPB SCH (18:00)
[2018-05-02] MEDS: CHLORHEXIDINE GLUCONATE 4% CLEANSER FOR DECOLONIZATION TP SCH (22:18)
[2018-05-02 22:33] LABS: BASO % 0.1 % (0-2.0); HEMATOCRIT 43.9 % (35.4-49); HEMOGLOBIN 15.2 GM/dL (11.7-16.9); LYMPH % 6.5 % (8-40); MCH 34.9 pg (25.7-33.7); MCHC 34.7 g/dl (32.0-35.9); MEAN CELL VOLUME 100.7 fl (80-96); MEAN PLT VOLUME 9.3 fl (7.5-11.1); MONO % 3.9 % (3.8-10.2); NEUT % 89.5 % (42.8-82.8); PLATELET COUNT 169 K/MM3 (134-434); RBC 4.36 M/mm3 (4.00-5.60); RDW 13.3 % (11.9-15.9); WHITE BLOOD COUNT 15.4 K/mm3 (4.0-10.0)
[2018-05-02 22:38] LABS: ANION GAP 9 MMOL/L (8-16); BLOOD UREA NITROGEN 52 mg/dL (7-18); CALCIUM 7.7 mg/dL (8.5-10.1); CHLORIDE 115 mmol/L (98-107); CO2 22 mmol/L (21-32); CREATININE 1.2 mg/dL (0.55-1.3); GLUCOSE,RANDOM 159 mg/dL (74-106); POTASSIUM 3.9 mmol/L (3.5-5.1); SODIUM 146 mmol/L (136-145)
--- NOTE | 2018-05-02 22:39 | PN ---
Progress Note (short form) - Note Progress Note: Duplex of lower extremity shows: On the left side, thrombus is identified within the popliteal and posterior tibial veins. The common and superficial femoral veins are patent. There was a suspicion for a GI bleed, stool occult x 1 positive, repeat was negative. Evaluated by GI today. PPI drip stopped. On IV Protonix daily. There is no evidence of GI bleed at this time, no blood in diapers, no andie bleeding. CBC repeated after the duplex of the DVT results to make sure H/H were stable. Repeat H/H 15.7/45.2----> 15.2/43.9 (latest) Will start patient on Heparin Drip for DVT. Repeat CBC and PTT in q6H. Dr. Avina made aware.
[2018-05-02] MEDS ORDERED: HEPARIN NA (PORCINE) 5,000 UNITS/ML 1ML VIAL IVPUSH PRN ×2 (22:47)
[2018-05-02] MEDS ORDERED: HEPARIN SOD,PORK IN 0.45% NACL 25,000 UNIT/500 ML INFUS.BAG IVPB SCH (23:00)
[2018-05-03] MEDS ORDERED: PT OWN MED DRAWER 7, Y5N ONE ×4 (00:32→14:23)
[2018-05-03] MEDS: AZTREONAM 1 GM in DEXTROSE 5%-WATER - 50 ML IVPB SCH ×2 (01:48→16:09)
[2018-05-03] MEDS: LACTATED RINGERS SOLUTION 1,000 ML/1,000 ML INFUS.BAG IV SCH ×2 (06:18→16:09)
[2018-05-03 06:25] LABS: BASO % 0.1 % (0-2.0); HEMATOCRIT 40.5 % (35.4-49); HEMOGLOBIN 13.9 GM/dL (11.7-16.9); LYMPH % 6.5 % (8-40); MCH 34.3 pg (25.7-33.7); MCHC 34.3 g/dl (32.0-35.9); MEAN CELL VOLUME 100.1 fl (80-96); MEAN PLT VOLUME 9.3 fl (7.5-11.1); MONO % 3.9 % (3.8-10.2); NEUT % 89.5 % (42.8-82.8); PLATELET COUNT 175 K/MM3 (134-434); RBC 4.05 M/mm3 (4.00-5.60); RDW 13.4 % (11.9-15.9); WHITE BLOOD COUNT 14.3 K/mm3 (4.0-10.0)
[2018-05-03 07:34] LABS: ALBUMIN 2.7 g/dl (3.4-5.0); ALK PHOS 62 U/L (45-117); ANION GAP 5 MMOL/L (8-16); BILIRUBIN,TOTAL 0.7 mg/dL (0.2-1); BLOOD UREA NITROGEN 56 mg/dL (7-18); CALCIUM 7.9 mg/dL (8.5-10.1); CHLORIDE 114 mmol/L (98-107); CO2 25 mmol/L (21-32); CREATININE 1.1 mg/dL (0.55-1.3); GLUCOSE,RANDOM 153 mg/dL (74-106); PHOSPHOROUS 2.8 mg/dL (2.5-4.9); SGOT/AST 16 U/L (15-37); SGPT/ALT 12 U/L (13-61); SODIUM 144 mmol/L (136-145); TOT PROT 5.9 g/dl (6.4-8.2)
[2018-05-03] MEDS ORDERED: HEPARIN NA (PORCINE) 5,000 UNITS/ML 1ML VIAL IVPUSH PRN ×2 (08:32)
[2018-05-03] MEDS ORDERED: HEPARIN NA (PORCINE) 5,000 UNITS/ML 1ML VIAL IVPUSH ONE (08:32)
[2018-05-03] MEDS ORDERED: HEPARIN INFUSION - 25,000 UNITS/500 ML INFUS.BAG IVPB SCH (08:45)
--- NOTE | 2018-05-03 08:56 | PN ---
Physical Exam: SUBJECTIVE: Patient seen and examined, he was awake and alert, reported no pain and no difficulty breathing. OBJECTIVE: Vital Signs Period Temp Pulse Resp BP Sys/Linder Pulse Ox Last 24 Hr 97.1 F-98.4 F 70-84 11-21 104-158/60-86 93-100 GENERAL: The patient is awake, alert, and oriented to person and place, in no acute distress. HEAD: Normal with no signs of trauma. EYES: PERRL, extraocular movements intact, sclera anicteric, conjunctiva clear. No ptosis. ENT: Ears normal, nares patent, oropharynx clear without exudates, moist mucous membranes. NECK: Trachea midline, full range of motion, supple. LUNGS: Breath sounds equal, clear to auscultation bilaterally, no wheezes, no crackles, no accessory muscle use. HEART: Regular rate and rhythm, S1, S2 without murmur, rub or gallop. ABDOMEN: Soft, nontender, nondistended, normoactive bowel sounds, no guarding, no rebound, no hepatosplenomegaly, no masses. EXTREMITIES: 2+ pulses, warm, well-perfused, no edema. NEUROLOGICAL: Cranial nerves II through XII grossly intact. Normal speech, gait not observed. PSYCH: Normal mood, normal affect. SKIN: Warm, dry, normal turgor, no rashes or lesions noted Laboratory Results - last 24 hr 05/02/18 05/02/18 05/02/18 08:25 08:42 08:42 WBC RBC Hgb Hct MCV MCH MCHC RDW Plt Count MPV Absolute Neuts (auto) Neutrophils % Lymphocytes % Monocytes % Eosinophils % Basophils % Nucleated RBC % PT with INR 14.00 H INR 1.18 H PTT (Actin FS) 29.6 Sodium 145 Potassium 3.7 Chloride 114 H Carbon Dioxide 20 L Anion Gap 11 BUN 50 H Creatinine 1.5 H Creat Clearance w eGFR 44.59 POC Glucometer Random Glucose 207 H Hemoglobin A1c % Lactic Acid Calcium 8.2 L Phosphorus 4.6 Magnesium Total Bilirubin 0.7 AST 22 ALT 12 L Alkaline Phosphatase 84 Creatine Kinase 145 Troponin I 0.07 H B-Natriuretic Peptide 60396.1 H Total Protein 7.1 Albumin 3.4 Total Amylase 58 Lipase 66 L Urine Color Urine Appearance Urine pH Ur Specific [place] Urine Protein Urine Glucose (UA) Urine Ketones Urine Blood Urine Nitrite Urine Bilirubin Urine Urobilinogen Ur Leukocyte Esterase Urine WBC (Auto) Urine RBC (Auto) Urine Casts (Auto) U Pathogenic Cast Auto U Epithel Cells (Auto) Urine Crystals (Auto) Urine Bacteria (Auto) Ur Random Sodium Ur Random Potassium Ur Random Chloride Stool Occult Blood Negative 05/02/18 05/02/18 05/02/18 08:42 08:42 08:42 WBC 13.5 H RBC 4.88 Hgb 17.1 H Hct 50.0 H MCV 102.5 H MCH 35.1 H MCHC 34.2 RDW 13.6 Plt Count 201 MPV 9.2 Absolute Neuts (auto) 11.8 H Neutrophils % 87.5 H Lymphocytes % 5.4 L D Monocytes % 7.0 Eosinophils % 0.0 Basophils % 0.1 Nucleated RBC % 0 PT with INR INR PTT (Actin FS) Sodium 145 Potassium 3.8 Chloride 113 H Carbon Dioxide 22 Anion Gap 9 BUN 49 H Creatinine 1.6 H Creat Clearance w eGFR 41.39 POC Glucometer Random Glucose 208 H Hemoglobin A1c % Lactic Acid Calcium 8.1 L Phosphorus Magnesium 2.2 Total Bilirubin AST ALT Alkaline Phosphatase Creatine Kinase Troponin I B-Natriuretic Peptide 35859.5 H Total Protein Albumin Total Amylase Lipase Urine Color Urine Appearance Urine pH Ur Specific [place] Urine Protein Urine Glucose (UA) Urine Ketones Urine Blood Urine Nitrite Urine Bilirubin Urine Urobilinogen Ur Leukocyte Esterase Urine WBC (Auto) Urine RBC (Auto) Urine Casts (Auto) U Pathogenic Cast Auto U Epithel Cells (Auto) Urine Crystals (Auto) Urine Bacteria (Auto) Ur Random Sodium Ur Random Potassium Ur Random Chloride Stool Occult Blood 05/02/18 05/02/18 05/02/18 08:42 08:50 11:35 WBC RBC Hgb Hct MCV MCH MCHC RDW Plt Count MPV Absolute Neuts (auto) Neutrophils % Lymphocytes % Monocytes % Eosinophils % Basophils % Nucleated RBC % PT with INR INR PTT (Actin FS) Sodium Potassium Chloride Carbon Dioxide Anion Gap BUN Creatinine Creat Clearance w eGFR POC Glucometer Random Glucose Hemoglobin A1c % 4.9 Lactic Acid 3.4 H* Calcium Phosphorus Magnesium Total Bilirubin AST ALT Alkaline Phosphatase Creatine Kinase Troponin I B-Natriuretic Peptide Total Protein Albumin Total Amylase Lipase Urine Color Urine Appearance Urine pH Ur Specific [place] Urine Protein Urine Glucose (UA) Urine Ketones Urine Blood Urine Nitrite Urine Bilirubin Urine Urobilinogen Ur Leukocyte Esterase Urine WBC (Auto) Urine RBC (Auto) Urine Casts (Auto) U Pathogenic Cast Auto U Epithel Cells (Auto) Urine Crystals (Auto) Urine Bacteria (Auto) Ur Random Sodium < 18 L Ur Random Potassium 86.5 Ur Random Chloride < 11 L Stool Occult Blood 05/02/18 05/02/18 05/02/18 11:35 11:35 12:28 WBC RBC Hgb Hct MCV MCH MCHC RDW Plt Count MPV Absolute Neuts (auto) Neutrophils % Lymphocytes % Monocytes % Eosinophils % Basophils % Nucleated RBC % PT with INR INR PTT (Actin FS) Sodium Potassium Chloride Carbon Dioxide Anion Gap BUN Creatinine Creat Clearance w eGFR POC Glucometer 189 Random Glucose Hemoglobin A1c % Lactic Acid Calcium Phosphorus Magnesium Total Bilirubin AST ALT Alkaline Phosphatase Creatine Kinase Troponin I B-Natriuretic Peptide Total Protein Albumin Total Amylase Lipase Urine Color Dk yellow Urine Appearance Turbid Urine pH 5.0 Ur Specific [place] 1.025 Urine Protein 1+ Urine Glucose (UA) Trace Urine Ketones Trace H Urine Blood 3+ Urine Nitrite Negative Urine Bilirubin 1+ H Urine Urobilinogen 1.0 Ur Leukocyte Esterase 1+ Urine WBC (Auto) 20 Urine RBC (Auto) 134.0 Urine Casts (Auto) 15 U Pathogenic Cast Auto None seen U Epithel Cells (Auto) 1.4 Urine Crystals (Auto) No Result Required. Urine Bacteria (Auto) 4.572 Ur Random Sodium < 18 L Ur Random Potassium Ur Random Chloride Stool Occult Blood 05/02/18 05/02/18 05/02/18 14:30 14:30 14:30 WBC 13.8 H RBC 4.50 Hgb 15.7 Hct 45.2 MCV 100.5 H MCH 34.8 H MCHC 34.6 RDW 13.5 Plt Count 180 MPV 8.8 Absolute Neuts (auto) 12.6 H Neutrophils % 90.8 H Lymphocytes % 6.0 L Monocytes % 3.1 L Eosinophils % 0.0 Basophils % 0.1 Nucleated RBC % 0 PT with INR INR PTT (Actin FS) Sodium 144 Potassium 3.2 L Chloride 116 H Carbon Dioxide 21 Anion Gap 8 BUN 52 H Creatinine 1.2 Creat Clearance w eGFR 57.68 POC Glucometer Random Glucose 202 H Hemoglobin A1c % Lactic Acid 1.8 Calcium 7.7 L Phosphorus Magnesium Total Bilirubin 0.6 AST 18 ALT 11 L Alkaline Phosphatase 70 Creatine Kinase 129 Troponin I 0.06 H B-Natriuretic Peptide Total Protein 6.4 Albumin 2.9 L Total Amylase Lipase Urine Color Urine Appearance Urine pH Ur Specific [place] Urine Protein Urine Glucose (UA) Urine Ketones Urine Blood Urine Nitrite Urine Bilirubin Urine Urobilinogen Ur Leukocyte Esterase Urine WBC (Auto) Urine RBC (Auto) Urine Casts (Auto) U Pathogenic Cast Auto U Epithel Cells (Auto) Urine Crystals (Auto) Urine Bacteria (Auto) Ur Random Sodium Ur Random Potassium Ur Random Chloride Stool Occult Blood 05/02/18 05/02/18 05/02/18 18:16 21:35 21:35 WBC 15.4 H RBC 4.36 Hgb 15.2 Hct 43.9 MCV 100.7 H MCH 34.9 H MCHC 34.7 RDW 13.3 Plt Count 169 MPV 9.3 Absolute Neuts (auto) 13.8 H Neutrophils % 89.5 H Lymphocytes % 6.5 L Monocytes % 3.9 Eosinophils % 0.0 Basophils % 0.1 Nucleated RBC % 0 PT with INR INR PTT (Actin FS) Sodium 146 H Potassium 3.9 Chloride 115 H Carbon Dioxide 22 Anion Gap 9 BUN 52 H Creatinine 1.2 Creat Clearance w eGFR 57.68 POC Glucometer 211 Random Glucose 159 H Hemoglobin A1c % Lactic Acid Calcium 7.7 L Phosphorus Magnesium Total Bilirubin AST ALT Alkaline Phosphatase Creatine Kinase Troponin I B-Natriuretic Peptide Total Protein Albumin Total Amylase Lipase Urine Color Urine Appearance Urine pH Ur Specific [place] Urine Protein Urine Glucose (UA) Urine Ketones Urine Blood Urine Nitrite Urine Bilirubin Urine Urobilinogen Ur Leukocyte Esterase Urine WBC (Auto) Urine RBC (Auto) Urine Casts (Auto) U Pathogenic Cast Auto U Epithel Cells (Auto) Urine Crystals (Auto) Urine Bacteria (Auto) Ur Random Sodium Ur Random Potassium Ur Random Chloride Stool Occult Blood 05/03/18 05/03/18 05/03/18 05:30 05:30 05:30 WBC 14.3 H RBC 4.05 Hgb 13.9 Hct 40.5 MCV 100.1 H MCH 34.3 H MCHC 34.3 RDW 13.4 Plt Count 175 MPV 9.3 Absolute Neuts (auto) 12.8 H Neutrophils % 89.5 H Lymphocytes % 6.5 L Monocytes % 3.9 Eosinophils % 0.0 Basophils % 0.1 Nucleated RBC % 0 PT with INR INR PTT (Actin FS) Sodium 144 Potassium 4.0 Chloride 114 H Carbon Dioxide 25 Anion Gap 5 L BUN 56 H Creatinine 1.1 Creat Clearance w eGFR 63.77 POC Glucometer Random Glucose 153 H Hemoglobin A1c % Lactic Acid Calcium 7.9 L Phosphorus 2.8 Magnesium 2.0 Total Bilirubin 0.7 AST 16 ALT 12 L Alkaline Phosphatase 62 Creatine Kinase Troponin I 0.03 Cancelled B-Natriuretic Peptide Total Protein 5.9 L Albumin 2.7 L Total Amylase Lipase Urine Color Urine Appearance Urine pH Ur Specific [place] Urine Protein Urine Glucose (UA) Urine Ketones Urine Blood Urine Nitrite Urine Bilirubin Urine Urobilinogen Ur Leukocyte Esterase Urine WBC (Auto) Urine RBC (Auto) Urine Casts (Auto) U Pathogenic Cast Auto U Epithel Cells (Auto) Urine Crystals (Auto) Urine Bacteria (Auto) Ur Random Sodium Ur Random Potassium Ur Random Chloride Stool Occult Blood Active Medications Generic Name Dose Route Start Last Admin Trade Name Freq PRN Reason Stop Dose Admin Albuterol Sulfate 1 amp 05/02/18 03:22 Ventolin 0.083% Nebulizer Soln - NEB Q4H PRN SHORT OF BREATH/WHEEZING Albuterol/Ipratropium 1 amp 05/02/18 03:21 Duoneb - NEB Q4H PRN SHORTNESS OF BREATH Chlorhexidine Gluconate 1 applic 05/02/18 22:00 05/02/18 22:18 Hibiclens For Decolonization - TP 1 applic HS GI Administration Heparin Sodium (Porcine) 2,100 unit 05/03/18 08:32 Heparin - 40 unit/kg (2100 unit) IVPUSH PRN PRN For aPTT 35 to 45 seconds Heparin Sodium (Porcine) 4,200 unit 05/03/18 08:32 Heparin - 80 unit/kg (4200 unit) IVPUSH PRN PRN aPTT <35 seconds Lactated Ringer's 1,000 ml in 1,000 mls @ 83 mls/hr 05/02/18 05:45 05/03/18 06:18 Lactated Ringers Solution IV 83 mls/hr ASDIR GI Administration Vancomycin HCl 1,000 mg in 250 mls @ 200 mls/hr 05/02/18 13:15 05/02/18 14:12 Vancomycin (Pre-Docked) IVPB 200 mls/hr Q24H GI Administration Protocol Aztreonam 1 gm/ Dextrose 50 mls @ 100 mls/hr 05/02/18 13:15 05/03/18 01:48 IVPB 100 mls/hr Q12H GI Administration Protocol Metronidazole 500 mg in 100 mls @ 100 mls/hr 05/02/18 13:15 05/03/18 01:51 Flagyl 500mg Premixed Ivpb - IVPB 100 mls/hr Q8H-IV GI Administration Heparin Sodium/Dextrose 25,000 units in 500 mls @ 19.003 mls/hr 05/03/18 08: 45 Heparin Infusion - IVPB TITR GI Protocol 18 UNITS/KG/HR Methylprednisolone Sodium Succinate 60 mg 05/02/18 05:35 05/02/18 22:17 Solu-Medrol - IVPUSH 60 mg BID GI Administration Mupirocin 1 applic 05/02/18 10:00 05/02/18 22:20 Bactroban Ointment (For Decolonization) - NS 05/07/18 09:59 1 applic BID GI Administration Pantoprazole Sodium 40 mg 05/03/18 10:00 Protonix Iv IVPUSH DAILY GI Pneumococcal 13-Valent Conj Vacc 0.5 ml 05/03/18 10:00 Prevnar 13 Syringe - IM 05/03/18 10:01 .ONCE ONE ASSESSMENT/PLAN: NEURO -Mental status improving -Continue to monitor #History of dementia -Restart meds today 05/03/18 -Klonopin 0.5 mg PO BID PRN -Venlafaxine 37.5 mg PO BID -Seroquel 25 mg PO HS CARDIOVASCULAR #LLE DVT -Heparin drip -Trend CBC and PTT #Elevated troponin -0.04>>0.07>>0.06>>0.03 -Stop trending #History of CAD -Hold ASA secondary to GIB -Hold home nitro secondary to sepsis/hypotension #Hx of HTN -Hypotensive secondary to sepsis -Hold home HTN medications -Continue to monitor # Hx of Carotid Stenosis -USG of carotids done in 04/30 with left carotid stenosis 50-60% RESPIRATORY -Acute hypoxic respiratory failure -Transitioned from BIPAP to Venti Mask 05/02/18 #COPD Exacerbation? -Solumedrol 60 mg IV BID -Albuterol 1 amp NEB Q4H PRN -Duoneb 1 amp NEB Q4H PRN GI #GIB -History of bloody diarrhea -H/H 18.2/52.7>>17.1/50.0>>15.2/439.>>13.9/405.5 --Continue to trend -Stool positive for blood initially, then negative on second test -Dilated bowel seen on CT appears to be similar to prior CT in 2016. -Protonix drip stopped per GI, IV protonix daily -Hold home ASA -GI on board -Surgery contacted by GI - per his note if persistently vomiting will need NGT and may need transfer to [facility] for surgical evaluation -Family prefers conservative measures as medically feasible RENAL #CAROLANN -Cr 1.4>>1.6>>1.2>>1.2>>1.1 --Continue IV fluid hydration ID #Sepsis -Febrile, tachycardic, tachypneic at presentation to ED with N/V/D -UA postive for UTI, pending culture -Diarrhea, pending stool testing -CXR no sign of acute chest process -Improving leukocytosis: 18.2>>13.5>>13.8>>15.4>>14.3 --Continue to trend -Lactic acidosis: 3.2>>3.4>>1.8 --Continue IV fluids -Vancomycin per ID -Aztreonam per ID -Flagyl per ID -ID on board # FEN -LR @ 83 CC/hr -Monitor Lytes -NPO for now -I/O # PROPHYLAXIS -Scds -No chemical DVT prophylaxis at this time -GI: Protonix drip DISPO -Tele for SpO2 monitoring -Code Status: DNR. please discuss with family or HCP Visit type - Emergency Visit Emergency Visit: Yes ED Registration Date: 05/02/18 Care time: The patient presented to the Emergency Department on the above date and was hospitalized for further evaluation of their emergent condition. - New Patient This patient is new to me today: No - Critical Care Critical Care patient: Yes Total Critical Care Time (in minutes): 35 Critical Care Statement: The care of this patient involved high complexity decision making to prevent further life threatening deterioration of the patient 's condition and/or to evaluate & treat vital organ system(s) failure or risk of failure. - Discharge Referral Referred to [facility] No
[2018-05-03] MEDS ORDERED: clonazePAM 0.5 MG TABLET PO SCH (10:00)
[2018-05-03] MEDS ORDERED: PNEUMOC 13-VAL CONJ-DIP CRM/PF 0.5 ML DISP.SYRIN IM ONE (10:00)
[2018-05-03] MEDS: methylPREDNISolone NA SUCC 40 MG/1 ML VIAL IVPUSH SCH ×2 (10:40→21:58)
[2018-05-03] MEDS: PANTOPRAZOLE SODIUM 40 MG VIAL IVPUSH SCH (10:41)
[2018-05-03] MEDS ORDERED: clonazePAM 0.5 MG TABLET PO PRN (10:49)
[2018-05-03] MEDS: VENLAFAXINE HCL 37.5 MG TABLET PO SCH ×2 (10:54→21:57)
[2018-05-03] MEDS: MUPIROCIN 2% TOPICAL OINTMENT FOR DECOLONIZATION NS SCH ×2 (10:55→21:26)
--- NOTE | 2018-05-03 11:47 | PN ---
Teaching Attending Note Name of Resident: Chance Lewis ATTENDING PHYSICIAN STATEMENT I saw and evaluated the patient. I reviewed the resident's note and discussed the case with the resident. I agree with the resident's findings and plan as documented. SUBJECTIVE:states its still hard to breathe. denies Cp, SOB, fever, chills, cough, N/V/C/D OBJECTIVE: Last Vital Signs Temp Pulse Resp BP Pulse Ox 97.1 F L 84 16 124/66 97 05/03/18 02:00 05/03/18 06:00 05/03/18 06:00 05/03/18 06:00 05/03/18 08:25 General NAD, breathing comfortable CV S1 S2 RRR Lungs CTA B/L no wheezing/rales/rhonchi Abdomen soft RUQ/RLQ tenderness no rebound or guarding Extremities no pedal edema, no calf tenderness ASSESSMENT AND PLAN: 82yo M with PMH mental retardation, CAD, HTN, anxiety presented to the ER with bloody diarrhea and respiratory distress. He was found to be in acute hypoxic respiratory distress and severely dehydrated with a AGMA 1. Acute hypoxic respiratory failure- due to COPD exacerbation. currently saturating 97% on 50% face mask. no infiltrate seen on CT. on medrol 60mg BID. inhalers and nebs. titrate down supplemental oxygen as tolerated. ID and pulmonary on board. 2. severe Sepsis due to suspected PNA and colitis-sterocolitis seen on CT. now having diarrhea and stool studies sent. started on vanco/aztreonam/flagyl (PCN allergy). Flu negative ID on board 3. AGMA- due to lactic acidosis due to sepsis. resolved 4. L DVT- started on heparin ggt. will transition to NOAC when hgb stable and no planned interventions 5. BRBPR-no repeat episodes. Hgb stable. not a candidate for endoscopy at this time. 5. CAROLANN- due to sepsis. non-ogliuric. cont IVF. avoid nephrotoxic agents. monitor UOP 6. CAD 7. HTN- controlled. hold oral agents at this time 8. MR 9. DVT ppx- SCD. hold pharmcologic a t this time 10. MICU monitoring. DNR The care of this patient involved high complexity decision making to prevent further life threatening deterioration of the patient's condition and/or to evaluate & treat vital organ system(s) failure or risk of failure. 38 mins ASSESSMENT AND PLAN:
--- NOTE | 2018-05-03 12:38 | PN ---
Teaching Attending Note Name of Resident: Noemi Lugo ATTENDING PHYSICIAN STATEMENT I saw and evaluated the patient. I reviewed the resident's note and discussed the case with the resident. I agree with the resident's findings and plan as documented. SUBJECTIVE: Patient seen and examined in the ICU. Awake and responsive on VM O2. Reports that his breathing feels better. OBJECTIVE: Intake & Output 04/30/18 05/01/18 05/02/18 05/03/18 23:59 23:59 23:59 23:59 Intake Total 1867 981 Output Total 475 350 Balance 1392 631 Weight 120 lb 9.6 oz 116 lb 6 oz Last Vital Signs Temp Pulse Resp BP Pulse Ox 97.2 F L 56 L 16 126/48 L 100 05/03/18 10:00 05/03/18 10:00 05/03/18 10:00 05/03/18 10:00 05/03/18 09:00 Active Medications Albuterol Sulfate (Ventolin 0.083% Nebulizer Soln -) 1 amp NEB Q4H PRN PRN Reason: SHORT OF BREATH/WHEEZING Albuterol/Ipratropium (Duoneb -) 1 amp NEB Q4H PRN PRN Reason: SHORTNESS OF BREATH Chlorhexidine Gluconate (Hibiclens For Decolonization -) 1 applic TP HS GI Last Admin: 05/02/18 22:18 Dose: 1 applic Clonazepam (Klonopin -) 0.5 mg PO Q12H PRN PRN Reason: AGITATION Heparin Sodium (Porcine) (Heparin -) 2,100 unit 40 unit/kg (2100 unit) IVPUSH PRN PRN PRN Reason: For aPTT 35 to 45 seconds Heparin Sodium (Porcine) (Heparin -) 4,200 unit 80 unit/kg (4200 unit) IVPUSH PRN PRN PRN Reason: aPTT <35 seconds Lactated Ringer's (Lactated Ringers Solution) 1,000 ml in 1,000 mls @ 83 mls/ hr IV ASDIR GI Last Admin: 05/03/18 06:18 Dose: 83 mls/hr Vancomycin HCl (Vancomycin (Pre-Docked)) 1,000 mg in 250 mls @ 200 mls/hr IVPB Q24H GI; Protocol Last Admin: 05/02/18 14:12 Dose: 200 mls/hr Aztreonam 1 gm/ Dextrose 50 mls @ 100 mls/hr IVPB Q12H [facility]; Protocol Last Admin: 05/03/18 01:48 Dose: 100 mls/hr Metronidazole (Flagyl 500mg Premixed Ivpb -) 500 mg in 100 mls @ 100 mls/hr IVPB Q8H-IV [facility] Last Admin: 05/03/18 10:48 Dose: 100 mls/hr Heparin Sodium/Dextrose (Heparin Infusion -) 25,000 units in 500 mls @ 19.003 mls/hr IVPB TITR [facility]; Protocol Last Admin: 05/03/18 09:55 Dose: 16 units/kg/hr, 16.892 mls/hr Methylprednisolone Sodium Succinate (Solu-Medrol -) 60 mg IVPUSH BID [facility] Last Admin: 05/03/18 10:40 Dose: 60 mg Mupirocin (Bactroban Ointment (For Decolonization) -) 1 applic NS BID [facility] Stop: 05/07/18 09:59 Last Admin: 05/03/18 10:55 Dose: 1 applic Pantoprazole Sodium (Protonix Iv) 40 mg IVPUSH DAILY [facility] Last Admin: 05/03/18 10:41 Dose: 40 mg Quetiapine Fumarate (Seroquel -) 25 mg PO HS [facility] Venlafaxine HCl (Effexor -) 37.5 mg PO BID [facility] Last Admin: 05/03/18 10:54 Dose: 37.5 mg Gen: lethargic but arousable Heart: RRR Lung: scattered rhonchi Abd: soft, nontender Ext: no edema Laboratory Results - last 24 hr 05/02/18 05/02/18 05/02/18 08:42 08:50 11:35 WBC RBC Hgb Hct MCV MCH MCHC RDW Plt Count MPV Absolute Neuts (auto) Neutrophils % Lymphocytes % Monocytes % Eosinophils % Basophils % Nucleated RBC % PTT (Actin FS) Sodium Potassium Chloride Carbon Dioxide Anion Gap BUN Creatinine Creat Clearance w eGFR POC Glucometer Random Glucose Hemoglobin A1c % 4.9 Lactic Acid Calcium Phosphorus Magnesium Total Bilirubin AST ALT Alkaline Phosphatase Creatine Kinase Troponin I B-Natriuretic Peptide 64608.5 H Total Protein Albumin Urine Color Urine Appearance Urine pH Ur Specific [place] Urine Protein Urine Glucose (UA) Urine Ketones Urine Blood Urine Nitrite Urine Bilirubin Urine Urobilinogen Ur Leukocyte Esterase Urine WBC (Auto) Urine RBC (Auto) Urine Casts (Auto) U Pathogenic Cast Auto U Epithel Cells (Auto) Urine Crystals (Auto) Urine Bacteria (Auto) Ur Random Sodium < 18 L Ur Random Potassium 86.5 Ur Random Chloride < 11 L 05/02/18 05/02/18 05/02/18 11:35 11:35 14:30 WBC 13.8 H RBC 4.50 Hgb 15.7 Hct 45.2 MCV 100.5 H MCH 34.8 H MCHC 34.6 RDW 13.5 Plt Count 180 MPV 8.8 Absolute Neuts (auto) 12.6 H Neutrophils % 90.8 H Lymphocytes % 6.0 L Monocytes % 3.1 L Eosinophils % 0.0 Basophils % 0.1 Nucleated RBC % 0 PTT (Actin FS) Sodium Potassium Chloride Carbon Dioxide Anion Gap BUN Creatinine Creat Clearance w eGFR POC Glucometer Random Glucose Hemoglobin A1c % Lactic Acid Calcium Phosphorus Magnesium Total Bilirubin AST ALT Alkaline Phosphatase Creatine Kinase Troponin I B-Natriuretic Peptide Total Protein Albumin Urine Color Dk yellow Urine Appearance Turbid Urine pH 5.0 Ur Specific [place] 1.025 Urine Protein 1+ Urine Glucose (UA) Trace Urine Ketones Trace H Urine Blood 3+ Urine Nitrite Negative Urine Bilirubin 1+ H Urine Urobilinogen 1.0 Ur Leukocyte Esterase 1+ Urine WBC (Auto) 20 Urine RBC (Auto) 134.0 Urine Casts (Auto) 15 U Pathogenic Cast Auto None seen U Epithel Cells (Auto) 1.4 Urine Crystals (Auto) No Result Required. Urine Bacteria (Auto) 4.572 Ur Random Sodium < 18 L Ur Random Potassium Ur Random Chloride 05/02/18 05/02/18 05/02/18 14:30 14:30 18:16 WBC RBC Hgb Hct MCV MCH MCHC RDW Plt Count MPV Absolute Neuts (auto) Neutrophils % Lymphocytes % Monocytes % Eosinophils % Basophils % Nucleated RBC % PTT (Actin FS) Sodium 144 Potassium 3.2 L Chloride 116 H Carbon Dioxide 21 Anion Gap 8 BUN 52 H Creatinine 1.2 Creat Clearance w eGFR 57.68 POC Glucometer 211 Random Glucose 202 H Hemoglobin A1c % Lactic Acid 1.8 Calcium 7.7 L Phosphorus Magnesium Total Bilirubin 0.6 AST 18 ALT 11 L Alkaline Phosphatase 70 Creatine Kinase 129 Troponin I 0.06 H B-Natriuretic Peptide Total Protein 6.4 Albumin 2.9 L Urine Color Urine Appearance Urine pH Ur Specific [place] Urine Protein Urine Glucose (UA) Urine Ketones Urine Blood Urine Nitrite Urine Bilirubin Urine Urobilinogen Ur Leukocyte Esterase Urine WBC (Auto) Urine RBC (Auto) Urine Casts (Auto) U Pathogenic Cast Auto U Epithel Cells (Auto) Urine Crystals (Auto) Urine Bacteria (Auto) Ur Random Sodium Ur Random Potassium Ur Random Chloride 05/02/18 05/02/18 05/03/18 21:35 21:35 05:30 WBC 15.4 H 14.3 H RBC 4.36 4.05 Hgb 15.2 13.9 Hct 43.9 40.5 MCV 100.7 H 100.1 H MCH 34.9 H 34.3 H MCHC 34.7 34.3 RDW 13.3 13.4 Plt Count 169 175 MPV 9.3 9.3 Absolute Neuts (auto) 13.8 H 12.8 H Neutrophils % 89.5 H 89.5 H Lymphocytes % 6.5 L 6.5 L Monocytes % 3.9 3.9 Eosinophils % 0.0 0.0 Basophils % 0.1 0.1 Nucleated RBC % 0 0 PTT (Actin FS) Sodium 146 H Potassium 3.9 Chloride 115 H Carbon Dioxide 22 Anion Gap 9 BUN 52 H Creatinine 1.2 Creat Clearance w eGFR 57.68 POC Glucometer Random Glucose 159 H Hemoglobin A1c % Lactic Acid Calcium 7.7 L Phosphorus Magnesium Total Bilirubin AST ALT Alkaline Phosphatase Creatine Kinase Troponin I B-Natriuretic Peptide Total Protein Albumin Urine Color Urine Appearance Urine pH Ur Specific [place] Urine Protein Urine Glucose (UA) Urine Ketones Urine Blood Urine Nitrite Urine Bilirubin Urine Urobilinogen Ur Leukocyte Esterase Urine WBC (Auto) Urine RBC (Auto) Urine Casts (Auto) U Pathogenic Cast Auto U Epithel Cells (Auto) Urine Crystals (Auto) Urine Bacteria (Auto) Ur Random Sodium Ur Random Potassium Ur Random Chloride 05/03/18 05/03/18 05/03/18 05:30 05:30 08:44 WBC RBC Hgb Hct MCV MCH MCHC RDW Plt Count MPV Absolute Neuts (auto) Neutrophils % Lymphocytes % Monocytes % Eosinophils % Basophils % Nucleated RBC % PTT (Actin FS) 77.4 H Sodium 144 Potassium 4.0 Chloride 114 H Carbon Dioxide 25 Anion Gap 5 L BUN 56 H Creatinine 1.1 Creat Clearance w eGFR 63.77 POC Glucometer Random Glucose 153 H Hemoglobin A1c % Lactic Acid Calcium 7.9 L Phosphorus 2.8 Magnesium 2.0 Total Bilirubin 0.7 AST 16 ALT 12 L Alkaline Phosphatase 62 Creatine Kinase Troponin I 0.03 Cancelled B-Natriuretic Peptide Total Protein 5.9 L Albumin 2.7 L Urine Color Urine Appearance Urine pH Ur Specific [place] Urine Protein Urine Glucose (UA) Urine Ketones Urine Blood Urine Nitrite Urine Bilirubin Urine Urobilinogen Ur Leukocyte Esterase Urine WBC (Auto) Urine RBC (Auto) Urine Casts (Auto) U Pathogenic Cast Auto U Epithel Cells (Auto) Urine Crystals (Auto) Urine Bacteria (Auto) Ur Random Sodium Ur Random Potassium Ur Random Chloride 05/03/18 12:14 WBC RBC Hgb Hct MCV MCH MCHC RDW Plt Count MPV Absolute Neuts (auto) Neutrophils % Lymphocytes % Monocytes % Eosinophils % Basophils % Nucleated RBC % PTT (Actin FS) Sodium Potassium Chloride Carbon Dioxide Anion Gap BUN Creatinine Creat Clearance w eGFR POC Glucometer 123 Random Glucose Hemoglobin A1c % Lactic Acid Calcium Phosphorus Magnesium Total Bilirubin AST ALT Alkaline Phosphatase Creatine Kinase Troponin I B-Natriuretic Peptide Total Protein Albumin Urine Color Urine Appearance Urine pH Ur Specific [place] Urine Protein Urine Glucose (UA) Urine Ketones Urine Blood Urine Nitrite Urine Bilirubin Urine Urobilinogen Ur Leukocyte Esterase Urine WBC (Auto) Urine RBC (Auto) Urine Casts (Auto) U Pathogenic Cast Auto U Epithel Cells (Auto) Urine Crystals (Auto) Urine Bacteria (Auto) Ur Random Sodium Ur Random Potassium Ur Random Chloride ASSESSMENT AND PLAN: Acute Hypoxic Respiratory Failure UTI r/o Pneumonia Severe Sepsis Acute Kidney Injury Lactic Acidosis Acute COPD Exacerbation r/o GI Bleed HTN Mental Retardation - IV antibiotics - IVF - monitor urine output, creatinine - medrol - inhaled bronchodilators - protonix - DVT prophylaxis - 4W / 4S monitoring for oximetry Dr Todd
--- NOTE | 2018-05-03 12:52 | PN.GI ---
GI Progress Note Subjective: No acute events Had large non bloody loose BM this morning Remains on 50% FM O2 Lethargic - Objective Vital Signs: Vital Signs Temperature 97.2 F L 05/03/18 10:00 Pulse Rate 56 L 05/03/18 10:00 Respiratory Rate 16 05/03/18 10:00 Blood Pressure 126/48 L 05/03/18 10:00 O2 Sat by Pulse Oximetry (%) 100 05/03/18 09:00 Constitutional: Calm Eyes: No: Sclera Icterus Cardiovascular: Yes: Regular Rate and Rhythm Respiratory: Yes: Diminished (at bases bilaterally. Poor insp effort) Gastrointestinal Inspection: No: Distention ...Auscultate: Yes: Normoactive Bowel Sounds ...Palpate: No: Tenderness (No grimacing upon palpation) Edema: No (No LE edema) Neurological: Yes: Lethargy Labs: CBC, BMP 05/03/18 05:30 05/03/18 05:30 INR, PTT INR 1.18 (0.83-1.09) H 05/02/18 08:42 Problem List - Problems (1) Rectal bleeding Assessment/Plan: No overt bleeding Had BM today. Stool sent for C. Diff Code(s): K62.5 - HEMORRHAGE OF ANUS AND RECTUM (2) Diarrhea Assessment/Plan: Stool sent for C. Diff. Copious watery BM's not reported Code(s): R19.7 - DIARRHEA, UNSPECIFIED (3) Bowel obstruction Assessment/Plan: Patient not vomiting and having BM's Monitor for now Evaluated by surgery Code(s): K56.60 - UNSPECIFIED INTESTINAL OBSTRUCTION * DO NOT USE * Qualifiers: Intestinal obstruction type: unspecified
--- NOTE | 2018-05-03 14:54 | PN ---
Physical Exam: SUBJECTIVE: Patient seen and examined at bedside. No acute events overnight. yesterday Duplex of LE shows: On the left side, thrombus is identified within the popliteal and posterior tibial veins. The common and superficial femoral veins are patent. There is no evidence of GI bleed at this time, no blood in diapers, no andie bleeding and second FOBT neg, H/H has remained stable, patient started on Heparin gtt for DVT. more arousable today to verbal and physical stimulation. states its still hard to breathe but satting well on 50%VM. OBJECTIVE: Vital Signs Period Temp Pulse Resp BP Sys/Linder Pulse Ox Last 24 Hr 97.1 F-97.4 F 54-84 11-21 121-158/48-86 97-100 GENERAL: mildly lethargic but more arousable today to verbal and physical stimulation. AOX2-3 HEAD: NCAT EYES: PERRL, extraocular movements intact, sclera anicteric, conjunctiva clear. No ptosis. ENT: nares patent, oropharynx clear without exudates, moist mucous membranes. NECK: Trachea midline, full range of motion, supple. LUNGS: Breath sounds equal, bilateral rhonchi, no accessory muscle use. HEART: RRR, S1, S2 without murmur, rub or gallop. ABDOMEN: Soft, NTND, normoactive bowel sounds, no guarding, no rebound, no hepatosplenomegaly, no masses. EXTREMITIES: 2+ pulses, warm, well-perfused, no edema. NEUROLOGICAL: lethargic but arousable. no facial drooping. strength 3-4/5 in UE and LE, sensation intact PSYCH: lethargic but arousable. does not follow commands. SKIN: Warm, dry, normal turgor, no rashes or lesions noted Laboratory Results - last 24 hr 05/02/18 05/02/18 05/02/18 11:35 11:35 14:30 WBC 13.8 H RBC 4.50 Hgb 15.7 Hct 45.2 MCV 100.5 H MCH 34.8 H MCHC 34.6 RDW 13.5 Plt Count 180 MPV 8.8 Absolute Neuts (auto) 12.6 H Neutrophils % 90.8 H Lymphocytes % 6.0 L Monocytes % 3.1 L Eosinophils % 0.0 Basophils % 0.1 Nucleated RBC % 0 PTT (Actin FS) Sodium Potassium Chloride Carbon Dioxide Anion Gap BUN Creatinine Creat Clearance w eGFR POC Glucometer Random Glucose Lactic Acid Calcium Phosphorus Magnesium Total Bilirubin AST ALT Alkaline Phosphatase Creatine Kinase Troponin I Total Protein Albumin Urine WBC (Auto) 20 Urine RBC (Auto) 134.0 Urine Casts (Auto) 15 U Pathogenic Cast Auto None seen U Epithel Cells (Auto) 1.4 Urine Bacteria (Auto) 4.572 Ur Random Potassium 86.5 05/02/18 05/02/18 05/02/18 14:30 14:30 18:16 WBC RBC Hgb Hct MCV MCH MCHC RDW Plt Count MPV Absolute Neuts (auto) Neutrophils % Lymphocytes % Monocytes % Eosinophils % Basophils % Nucleated RBC % PTT (Actin FS) Sodium 144 Potassium 3.2 L Chloride 116 H Carbon Dioxide 21 Anion Gap 8 BUN 52 H Creatinine 1.2 Creat Clearance w eGFR 57.68 POC Glucometer 211 Random Glucose 202 H Lactic Acid 1.8 Calcium 7.7 L Phosphorus Magnesium Total Bilirubin 0.6 AST 18 ALT 11 L Alkaline Phosphatase 70 Creatine Kinase 129 Troponin I 0.06 H Total Protein 6.4 Albumin 2.9 L Urine WBC (Auto) Urine RBC (Auto) Urine Casts (Auto) U Pathogenic Cast Auto U Epithel Cells (Auto) Urine Bacteria (Auto) Ur Random Potassium 05/02/18 05/02/18 05/03/18 21:35 21:35 05:30 WBC 15.4 H 14.3 H RBC 4.36 4.05 Hgb 15.2 13.9 Hct 43.9 40.5 MCV 100.7 H 100.1 H MCH 34.9 H 34.3 H MCHC 34.7 34.3 RDW 13.3 13.4 Plt Count 169 175 MPV 9.3 9.3 Absolute Neuts (auto) 13.8 H 12.8 H Neutrophils % 89.5 H 89.5 H Lymphocytes % 6.5 L 6.5 L Monocytes % 3.9 3.9 Eosinophils % 0.0 0.0 Basophils % 0.1 0.1 Nucleated RBC % 0 0 PTT (Actin FS) Sodium 146 H Potassium 3.9 Chloride 115 H Carbon Dioxide 22 Anion Gap 9 BUN 52 H Creatinine 1.2 Creat Clearance w eGFR 57.68 POC Glucometer Random Glucose 159 H Lactic Acid Calcium 7.7 L Phosphorus Magnesium Total Bilirubin AST ALT Alkaline Phosphatase Creatine Kinase Troponin I Total Protein Albumin Urine WBC (Auto) Urine RBC (Auto) Urine Casts (Auto) U Pathogenic Cast Auto U Epithel Cells (Auto) Urine Bacteria (Auto) Ur Random Potassium 05/03/18 05/03/18 05/03/18 05:30 05:30 08:44 WBC RBC Hgb Hct MCV MCH MCHC RDW Plt Count MPV Absolute Neuts (auto) Neutrophils % Lymphocytes % Monocytes % Eosinophils % Basophils % Nucleated RBC % PTT (Actin FS) 77.4 H Sodium 144 Potassium 4.0 Chloride 114 H Carbon Dioxide 25 Anion Gap 5 L BUN 56 H Creatinine 1.1 Creat Clearance w eGFR 63.77 POC Glucometer Random Glucose 153 H Lactic Acid Calcium 7.9 L Phosphorus 2.8 Magnesium 2.0 Total Bilirubin 0.7 AST 16 ALT 12 L Alkaline Phosphatase 62 Creatine Kinase Troponin I 0.03 Cancelled Total Protein 5.9 L Albumin 2.7 L Urine WBC (Auto) Urine RBC (Auto) Urine Casts (Auto) U Pathogenic Cast Auto U Epithel Cells (Auto) Urine Bacteria (Auto) Ur Random Potassium 05/03/18 12:14 WBC RBC Hgb Hct MCV MCH MCHC RDW Plt Count MPV Absolute Neuts (auto) Neutrophils % Lymphocytes % Monocytes % Eosinophils % Basophils % Nucleated RBC % PTT (Actin FS) Sodium Potassium Chloride Carbon Dioxide Anion Gap BUN Creatinine Creat Clearance w eGFR POC Glucometer 123 Random Glucose Lactic Acid Calcium Phosphorus Magnesium Total Bilirubin AST ALT Alkaline Phosphatase Creatine Kinase Troponin I Total Protein Albumin Urine WBC (Auto) Urine RBC (Auto) Urine Casts (Auto) U Pathogenic Cast Auto U Epithel Cells (Auto) Urine Bacteria (Auto) Ur Random Potassium Active Medications Generic Name Dose Route Start Last Admin Trade Name Freq PRN Reason Stop Dose Admin Albuterol Sulfate 1 amp 05/02/18 03:22 Ventolin 0.083% Nebulizer Soln - NEB Q4H PRN SHORT OF BREATH/WHEEZING Albuterol/Ipratropium 1 amp 05/02/18 03:21 Duoneb - NEB Q4H PRN SHORTNESS OF BREATH Chlorhexidine Gluconate 1 applic 05/02/18 22:00 05/02/18 22:18 Hibiclens For Decolonization - TP 1 applic HS GI Administration Clonazepam 0.5 mg 05/03/18 10:49 Klonopin - PO Q12H PRN AGITATION Enoxaparin Sodium 60 mg 05/03/18 14:30 Lovenox - SQ Q12H GI Lactated Ringer's 1,000 ml in 1,000 mls @ 83 mls/hr 05/02/18 05:45 05/03/18 06:18 Lactated Ringers Solution IV 83 mls/hr ASDIR GI Administration Vancomycin HCl 1,000 mg in 250 mls @ 200 mls/hr 05/02/18 13:15 05/02/18 14:12 Vancomycin (Pre-Docked) IVPB 200 mls/hr Q24H GI Administration Protocol Aztreonam 1 gm/ Dextrose 50 mls @ 100 mls/hr 05/02/18 13:15 05/03/18 01:48 IVPB 100 mls/hr Q12H GI Administration Protocol Metronidazole 500 mg in 100 mls @ 100 mls/hr 05/02/18 13:15 05/03/18 10:48 Flagyl 500mg Premixed Ivpb - IVPB 100 mls/hr Q8H-IV GI Administration Methylprednisolone Sodium Succinate 60 mg 05/02/18 05:35 05/03/18 10:40 Solu-Medrol - IVPUSH 60 mg BID GI Administration Mupirocin 1 applic 05/02/18 10:00 05/03/18 10:55 Bactroban Ointment (For Decolonization) - NS 05/07/18 09:59 1 applic BID GI Administration Pantoprazole Sodium 40 mg 05/03/18 10:00 05/03/18 10:41 Protonix Iv IVPUSH 40 mg DAILY GI Administration Quetiapine Fumarate 25 mg 05/03/18 22:00 Seroquel - PO HS GI Venlafaxine HCl 37.5 mg 05/03/18 10:00 05/03/18 10:54 Effexor - PO 37.5 mg BID GI Administration 04/30 US carotids: left moderate to large plaque (6mm thickness) internal carotid artery with 50-69% stenosis [id number] CT/ABDOMEN & PELVIS CT W/O CONTR [id number] CT/CHEST CT WITHOUT CONTRAST INDICATION: Cough, GI bleed. TECHNIQUE: Helical images of the chest, abdomen and pelvis were obtained noncontrast . COMPARISON: 01/27/2016 FINDINGS: LUNGS: Discoid atelectasis present at the left base. Dependent atelectasis noted at the left base. There is elevation of the left diaphragm. Discoid atelectasis present at the right upper lobe. No suspicious lung nodules seen. No endobronchial lesions noted. PLEURA: No pleural effusions or pneumothorax seen. MEDIASTINUM: No pathologic adenopathy was appreciated. CARDIAC: The root of the aorta is mildly dilated measuring 4 cm. Vascular calcifications noted including coronary. The heart is normal size. No pericardiac effusion noted. Mediastinal shift to the right is present. LIVER: Negative. GALLBLADDER: Gallstone suspected. No pericholecystic fluid identified. BILIARY DUCTS: Pneumobilia is present, correlate with instrumentation. PANCREAS: Imaging is limited. No focal masses were appreciated. SPLEEN: Not visualized ADRENALS: Bulky left adrenal KIDNEYS: Multiple cysts noted on the right kidney with a lower pole dominant cyst that shows mural calcifications unchanged. No hydronephrosis seen. The left kidney shows a hyperdense cystic-like structure within the upper pole measuring 2.9 cm which appears unchanged from prior imaging. Correlate with ultrasound. AORTA: The abdominal aorta appears normal caliber with minimal calcifications noted. Iliofemoral's appear ectatic. LYMPH NODES: Negative. BOWEL: There is thickening of the rectal wall with a large amount of stool suggesting stercoral colitis. The rectum is distended with air. Underlying proctitis not excluded. No pneumatosis present. Similar findings were noted on prior imaging. The stomach is distended with air and fluid. No pneumatosis is identified. No free peritoneal air or fluid is seen. PELVIS: Ford catheter noted in place. Likely bladder cyst on the left is again noted. Streak artifacts from right hip prostheses create streak artifacts. OTHER: Demineralization noted. Spondylotic changes noted of the spine. No aggressive bone lesions noted. Mild scoliosis seen. Motion artifact degrading imaging of the ribs. Preliminary dictation was generated by the on-call radiologist at the time of this procedure. IMPRESSION: Marked elevation of the left diaphragm as discussed above. There is dilatation of the stomach containing air and fluid with no pneumatosis identified. There is thickening of the rectal wall suggesting stercoral colitis, underlying proctitis not excluded. Similar findings noted on prior imaging. Right renal cyst with calcifications seen previously. Incidentally, nonobstructing stone within the lower pole of the right kidney was visualized. Questionable complex cyst within the upper pole of the left kidney. Correlate with ultrasound imaging. Pneumobilia, correlate with prior instrumentation. Cholelithiasis seen previously. 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 Additional comments noted above. Duplex of LE 05/02/18 shows: L side thrombus is identified within the popliteal and posterior tibial veins. The common and superficial femoral veins are patent. ASSESSMENT/PLAN: 80 yo M w/ PMHx of dementia/mental retardation, anxiety, HTN, COPD (2-3L O2), CAD, GERD, L carotid stenosis, and recently admitted for fall and UTI, BIBEMS from [facility] for evaluation of bloody diarrhea, vomiting and respiratory distress, found to be in acute hypoxic respiratory distress and severely dehydrated with a AGMA # Severe sepsis 2/2 suspected aspiration PNA and colitis-sterocolitis seen on CT , c/b Acute hypoxic respiratory failure 2/2 COPD exacerbation - now having non bloody diarrhea, currently saturating 97% on 50% face mask. no infiltrate seen on CT noted above -Febrile, tachycardic, tachypneic at presentation to ED -UA postive for UTI, pending culture -CXR no sign of acute chest process -Improving leukocytosis: 18.2>>13.5>>13.8>>15.4>>14.3 -Lactic acidosis: 3.2>>3.4>>1.8, resolved -c/w IVF -ID consult requested (Dr. Sheffield) -s/p Vanc and Flagyl x1 in ED. s/p Meropenam x1 on floors -empiric vanc/flagyl/aztreonam day2 pending cx, ID recs appreciated. (PCN allergic) -ABG - metabolic acidosis: pH:7.27; Co2 43.9 - resolved -poor candidate for BiPAP given mental status and history of vomiting, however saturating well, and successfully transitioned from BIPAP to Venti Mask 05/02/18 , per ICU team. currently satting well on 50% VM O2, titrate down as tolerated. if needs increased Vent/O2 support consider intubation. -CT A/P - +colitis-sterocolitis, noted above -C. diff ordered (pt was on abx for UTI 3 weeks ago) - neg -Flu negative -IV Solumedrol 60 mg BID -Albuterol 0.083% nebs PRN -Duoneb QID #LLE DVT -Duplex of LE 05/02/18 shows: L side thrombus is identified within the popliteal and posterior tibial veins. The common and superficial femoral veins are patent. here is no evidence of GI bleed at this time, no blood in diapers, no andie bleeding and second FOBT neg, H/H has remained stable, patient started on Heparin gtt for DVT. -c/w Heparin drip -Trend CBC and PTT -will transition to NOAC when H/H consistently stable and no planned interventions #BRBPR - no repeat episodes and large non bloody loose BM this morning. H/H stable, not a candidate for endoscopy at this time. +colitis-sterocolitis, noted above on CT Initial FOBT was positive. Second FOBT was negative. monitor H/H c diff neg dcd IV Protonix gtt, as does not appear to be an upper GI bleed Dilated bowel seen on CT appears to be similar to prior CT in 2016. GI consult (Dr. Perkins) As per EMR, patient had gastric volvulus in 2016, was managed conservatively Last EGD/Colonoscopy unknown -Surgery contacted by GI - per his note if persistently vomiting will need NGT and may need transfer to [facility] for surgical evaluation #AGMA- due to lactic acidosis due to sepsis. resolved w/ IVF #Elevated troponin -0.04>>0.07>>0.06>>0.03 -Stop trending #CAROLANN 2/2 sepsis - Cr 1.4>>1.6>>1.2>>1.2>>1.1, improving; base line Cr ~.7 cont IVF. avoid nephrotoxic agents. monitor UOP # Dementia/MR and anxiety: resume Quetiapine 25 mg PO HS ; Venlafaxine 37.5 mg PO BID ; clonazePAM 0.5 mg PO BID. # HTN now normotensive IV Hydration. Hold BP meds. # Hx of Bradycardia Last admission, his rate dropped to 30s at night without prolonged pauses and APCs # CAD ASA 81 daily, Hold aspirin due to possible GI bleed. # Carotid Stenosis -USG of carotids done in 04/30 with left carotid stenosis 50-60% # GERD Protonix # FEN IV LR @ 83 mls/hr replete prn NPO # Prophylaxis DVT: SCDs GI: c/w protonix IVP 40 for ppx in setting of steroid use and GERD # Code Status: DNR. Daughter agrees for intubation if required. Need to clarify more about code status. Dispo ICU Visit type - Emergency Visit Emergency Visit: Yes ED Registration Date: 05/02/18 Care time: The patient presented to the Emergency Department on the above date and was hospitalized for further evaluation of their emergent condition. - New Patient This patient is new to me today: Yes Date on this admission: 05/03/18 - Critical Care Critical Care patient: Yes Total Critical Care Time (in minutes): 38 Critical Care Statement: The care of this patient involved high complexity decision making to prevent further life threatening deterioration of the patient 's condition and/or to evaluate & treat vital organ system(s) failure or risk of failure.
[2018-05-03] MEDS: ENOXAPARIN NA (PORCINE) 60 MG/0.6 ML DISP.SYRIN SQ SCH (16:09)
[2018-05-03] MEDS: VANCOMYCIN 1 GRAM (PRE-DOCKED) 1,000 MG/250 ML BAG IVPB SCH (16:57)
--- NOTE | 2018-05-03 17:22 | PN ---
Progress Note (short form) - Note Progress Note: awake not speaking to me resting comfortably Vital Signs Period Temp Pulse Resp BP Sys/Linder Pulse Ox Last 24 Hr 97.1 F-97.4 F 54-84 11-21 121-158/48-86 97-100 cor-rrr llungs decreased bs at bases abd soft,nt ext no edema CBC, BMP 05/03/18 05:30 05/03/18 05:30 Microbiology 05/02/18 18:10 Stool Clostridioides difficile Antigen - Final 05/02/18 18:10 Stool Clostridioides difficile Toxin Assay - Final 05/02/18 02:30 Urine - Urine Ford Urine Culture - Preliminary 05/02/18 00:56 Blood - Peripheral Venous Blood Culture - Preliminary NO GROWTH OBTAINED AFTER 24 HOURS, INCUBATION TO CONTINUE FOR 4 DAYS. 05/02/18 00:56 Blood - Peripheral Venous Blood Culture - Preliminary NO GROWTH OBTAINED AFTER 24 HOURS, INCUBATION TO CONTINUE FOR 4 DAYS. Current Medications Albuterol Sulfate (Ventolin 0.083% Nebulizer Soln -) 1 amp NEB Q4H PRN PRN Reason: SHORT OF BREATH/WHEEZING Albuterol/Ipratropium (Duoneb -) 1 amp NEB Q4H PRN PRN Reason: SHORTNESS OF BREATH Chlorhexidine Gluconate (Hibiclens For Decolonization -) 1 applic TP HS GI Last Admin: 05/02/18 22:18 Dose: 1 applic Clonazepam (Klonopin -) 0.5 mg PO Q12H PRN PRN Reason: AGITATION Enoxaparin Sodium (Lovenox -) 60 mg SQ Q12H GI Last Admin: 05/03/18 16:09 Dose: 60 mg Lactated Ringer's (Lactated Ringers Solution) 1,000 ml in 1,000 mls @ 83 mls/ hr IV ASDIR GI Last Admin: 05/03/18 16:09 Dose: 83 mls/hr Vancomycin HCl (Vancomycin (Pre-Docked)) 1,000 mg in 250 mls @ 200 mls/hr IVPB Q24H GI; Protocol Last Admin: 05/03/18 16:57 Dose: 200 mls/hr Aztreonam 1 gm/ Dextrose 50 mls @ 100 mls/hr IVPB Q12H GI; Protocol Last Admin: 05/03/18 16:09 Dose: 100 mls/hr Metronidazole (Flagyl 500mg Premixed Ivpb -) 500 mg in 100 mls @ 100 mls/hr IVPB Q8H-IV [facility] Last Admin: 05/03/18 10:48 Dose: 100 mls/hr Methylprednisolone Sodium Succinate (Solu-Medrol -) 60 mg IVPUSH BID [facility] Last Admin: 05/03/18 10:40 Dose: 60 mg Mupirocin (Bactroban Ointment (For Decolonization) -) 1 applic NS BID [facility] Stop: 05/07/18 09:59 Last Admin: 05/03/18 10:55 Dose: 1 applic Pantoprazole Sodium (Protonix Iv) 40 mg IVPUSH DAILY [facility] Last Admin: 05/03/18 10:41 Dose: 40 mg Quetiapine Fumarate (Seroquel -) 25 mg PO [facility] Venlafaxine HCl (Effexor -) 37.5 mg PO BID [facility] Last Admin: 05/03/18 10:54 Dose: 37.5 mg a/p possible sepsis diarrhea slowing down cdiff negative f/u cultures pen allergy continue vancomycin/azactam/flagyl
[2018-05-03] MEDS: CHLORHEXIDINE GLUCONATE 4% CLEANSER FOR DECOLONIZATION TP SCH (21:26)
[2018-05-03] MEDS: QUEtiapine FUMARATE 25 MG TABLET (FP) PO SCH (21:57)
[2018-05-04] MEDS: AZTREONAM 1 GM in DEXTROSE 5%-WATER - 50 ML IVPB SCH ×2 (00:35→14:49)
[2018-05-04] MEDS: ENOXAPARIN NA (PORCINE) 60 MG/0.6 ML DISP.SYRIN SQ SCH (03:57)
[2018-05-04 07:28] LABS: HEMATOCRIT 38.8 % (35.4-49); HEMOGLOBIN 13.4 GM/dL (11.7-16.9); MCH 34.3 pg (25.7-33.7); MCHC 34.4 g/dl (32.0-35.9); MEAN CELL VOLUME 99.8 fl (80-96); MEAN PLT VOLUME 9.9 fl (7.5-11.1); PLATELET COUNT 171 K/MM3 (134-434); RBC 3.89 M/mm3 (4.00-5.60); RDW 13.5 % (11.9-15.9)
[2018-05-04 07:30] LABS: ALBUMIN 2.6 g/dl (3.4-5.0); ALK PHOS 59 U/L (45-117); ANION GAP 7 MMOL/L (8-16); BILIRUBIN,TOTAL 0.5 mg/dL (0.2-1); BLOOD UREA NITROGEN 49 mg/dL (7-18); CALCIUM 7.8 mg/dL (8.5-10.1); CHLORIDE 114 mmol/L (98-107); CO2 24 mmol/L (21-32); CREATININE 0.8 mg/dL (0.55-1.3); GLUCOSE,RANDOM 154 mg/dL (74-106); MAGNESIUM 2.3 mg/dL (1.8-2.4); PHOSPHOROUS 2.3 mg/dL (2.5-4.9); POTASSIUM 3.9 mmol/L (3.5-5.1); SGOT/AST 14 U/L (15-37); SGPT/ALT 9 U/L (13-61); SODIUM 145 mmol/L (136-145); TOT PROT 5.6 g/dl (6.4-8.2)
[2018-05-04] MEDS: PANTOPRAZOLE SODIUM 40 MG VIAL IVPUSH SCH (10:19)
[2018-05-04] MEDS: VENLAFAXINE HCL 37.5 MG TABLET PO SCH ×2 (10:19→22:54)
[2018-05-04] MEDS: methylPREDNISolone NA SUCC 40 MG/1 ML VIAL IVPUSH SCH ×2 (10:23→22:53)
--- NOTE | 2018-05-04 11:21 | PN ---
Progress Note (short form) - Note Progress Note: PULMONARY VSS/AFEBRILE Gen: lethargic but arousable Heart: RRR Lung: scattered rhonchi Abd: soft, nontender Ext: no edema LABS/MEDS/NOTES/IMAGES REVIEWED ASSESSMENT AND PLAN: Acute Hypoxic Respiratory Failure UTI r/o Pneumonia Severe Sepsis Acute Kidney Injury Lactic Acidosis Acute COPD Exacerbation r/o GI Bleed HTN Mental Retardation - IV antibiotics - IVF - monitor urine output, creatinine - medrol tapering - inhaled bronchodilators - protonix - DVT prophylaxis Demarco CASSIDY MD
[2018-05-04] MEDS: VANCOMYCIN 1 GRAM (PRE-DOCKED) 1,000 MG/250 ML BAG IVPB SCH (12:29)
--- NOTE | 2018-05-04 13:27 | PN ---
Progress Note (short form) - Note Progress Note: asymptomatic. wants to leave. states breathing is better. denies CP, SOB, fever , chills, N/V Current Medications Generic Name Dose Route Start Last Admin Trade Name Freq PRN Reason Stop Dose Admin Albuterol Sulfate 1 amp 05/02/18 03:22 Ventolin 0.083% Nebulizer Soln - NEB Q4H PRN SHORT OF BREATH/WHEEZING Albuterol/Ipratropium 1 amp 05/02/18 03:21 Duoneb - NEB Q4H PRN SHORTNESS OF BREATH Chlorhexidine Gluconate 1 applic 05/02/18 22:00 05/03/18 21:26 Hibiclens For Decolonization - TP Not Given HS GI Clonazepam 0.5 mg 05/03/18 10:49 Klonopin - PO Q12H PRN AGITATION Enoxaparin Sodium 60 mg 05/03/18 16:00 05/04/18 03:57 Lovenox - SQ 60 mg Q12H GI Administration Lactated Ringer's 1,000 ml in 1,000 mls @ 83 mls/hr 05/02/18 05:45 05/03/18 16:09 Lactated Ringers Solution IV 83 mls/hr ASDIR GI Administration Vancomycin HCl 1,000 mg in 250 mls @ 200 mls/hr 05/02/18 13:15 05/04/18 12:29 Vancomycin (Pre-Docked) IVPB 200 mls/hr Q24H GI Administration Protocol Aztreonam 1 gm/ Dextrose 50 mls @ 100 mls/hr 05/02/18 13:15 05/04/18 00:35 IVPB 100 mls/hr Q12H GI Administration Protocol Metronidazole 500 mg in 100 mls @ 100 mls/hr 05/02/18 13:15 05/04/18 10:19 Flagyl 500mg Premixed Ivpb - IVPB 100 mls/hr Q8H-IV GI Administration Methylprednisolone Sodium Succinate 30 mg 05/04/18 22:00 Solu-Medrol - IVPUSH BID GI Mupirocin 1 applic 05/02/18 10:00 05/03/18 21:26 Bactroban Ointment (For Decolonization) - NS 05/07/18 09:59 Not Given BID GI Pantoprazole Sodium 40 mg 05/03/18 10:00 05/04/18 10:19 Protonix Iv IVPUSH 40 mg DAILY GI Administration Quetiapine Fumarate 25 mg 05/03/18 22:00 05/03/18 21:57 Seroquel - PO 25 mg HS GI Administration Venlafaxine HCl 37.5 mg 05/03/18 10:00 05/04/18 10:19 Effexor - PO 37.5 mg BID GI Administration Last Vital Signs Temp Pulse Resp BP Pulse Ox 98.3 F 51 L 18 128/45 L 99 05/04/18 09:00 05/04/18 09:00 05/04/18 09:00 05/04/18 09:00 05/04/18 09:00 General NAD, alert and communicative oriented to self and location CV S1 S2 RRR Lungs CTA B/L no wheezing/rales/rhonchi Abdomen soft NT/ND no rebound or guarding Extremities no pedal edema, no calf tenderness CBCD WBC 14.0 K/mm3 (4.0-10.0) H 05/04/18 05:30 RBC 3.89 M/mm3 (4.00-5.60) L 05/04/18 05:30 Hgb 13.4 GM/dL (11.7-16.9) 05/04/18 05:30 Hct 38.8 % (35.4-49) 05/04/18 05:30 MCV 99.8 fl (80-96) H 05/04/18 05:30 MCHC 34.4 g/dl (32.0-35.9) 05/04/18 05:30 RDW 13.5 % (11.9-15.9) 05/04/18 05:30 Plt Count 171 K/MM3 (134-434) 05/04/18 05:30 MPV 9.9 fl (7.5-11.1) 05/04/18 05:30 CMP Sodium 145 mmol/L (136-145) 05/04/18 05:30 Potassium 3.9 mmol/L (3.5-5.1) 05/04/18 05:30 Chloride 114 mmol/L (98-107) H 05/04/18 05:30 Carbon Dioxide 24 mmol/L (21-32) 05/04/18 05:30 Anion Gap 7 MMOL/L (8-16) L 05/04/18 05:30 BUN 49 mg/dL (7-18) H 05/04/18 05:30 Creatinine 0.8 mg/dL (0.55-1.3) 05/04/18 05:30 Creat Clearance w eGFR 92.10 (>60) 05/04/18 05:30 Calcium 7.8 mg/dL (8.5-10.1) L 05/04/18 05:30 Total Bilirubin 0.5 mg/dL (0.2-1) 05/04/18 05:30 AST 14 U/L (15-37) L 05/04/18 05:30 ALT 9 U/L (13-61) L 05/04/18 05:30 Alkaline Phosphatase 59 U/L (45-117) 05/04/18 05:30 Total Protein 5.6 g/dl (6.4-8.2) L 05/04/18 05:30 Albumin 2.6 g/dl (3.4-5.0) L 05/04/18 05:30 ASSESSMENT AND PLAN: 82yo M with PMH mental retardation, CAD, HTN, anxiety presented to the ER with bloody diarrhea and respiratory distress. He was found to be in acute hypoxic respiratory distress and severely dehydrated with a AGMA 1. Acute hypoxic respiratory failure- due to COPD exacerbation. currently saturating 95% on 2L NC. no infiltrate seen on CT. will decrease medrol to 30mg twice a daily. titrate down supplemental oxygen as tolerated. ID and pulmonary on board. 2. severe Sepsis due to suspected PNA and colitis-sterocolitis seen on CT. diarrhea is improving. stool studies negative. on vanco/aztreonam/flagyl (PCN allergy). Flu negative ID on board 3. AGMA- due to lactic acidosis due to sepsis. resolved 4. L DVT- will transition to noac. monitor for bleeding 5. BRBPR-no repeat episodes. Hgb stable. not a candidate for endoscopy at this time. 5. CAROLANN- due to sepsis. non-ogliuric.resolved. d/c IVF. avoid nephrotoxic agents. monitor UOP 6. CAD 7. HTN- controlled. hold oral agents at this time 8. MR 9. DNR Visit type - Emergency Visit Emergency Visit: Yes ED Registration Date: 05/02/18 Care time: The patient presented to the Emergency Department on the above date and was hospitalized for further evaluation of their emergent condition. - New Patient This patient is new to me today: No - Critical Care Critical Care patient: No - Discharge Referral Referred to [facility] No
[2018-05-04] MEDS ORDERED: PT OWN MED DRAWER 7, Y5N ONE ×2 (16:43→22:46)
--- NOTE | 2018-05-04 17:00 | PN ---
Progress Note, Physician History of Present Illness: AWAKE AND ALERT OFFERS NO COMPLAINTS AFEBRILE - Current Medication List Current Medications: Active Medications Albuterol Sulfate (Ventolin 0.083% Nebulizer Soln -) 1 amp NEB Q4H PRN PRN Reason: SHORT OF BREATH/WHEEZING Apixaban (Eliquis -) 10 mg PO BID GI Clonazepam (Klonopin -) 0.5 mg PO Q12H PRN PRN Reason: AGITATION Vancomycin HCl (Vancomycin (Pre-Docked)) 1,000 mg in 250 mls @ 200 mls/hr IVPB Q24H GI; Protocol Last Admin: 05/04/18 12:29 Dose: 200 mls/hr Aztreonam 1 gm/ Dextrose 50 mls @ 100 mls/hr IVPB Q12H GI; Protocol Last Admin: 05/04/18 14:49 Dose: 100 mls/hr Metronidazole (Flagyl 500mg Premixed Ivpb -) 500 mg in 100 mls @ 100 mls/hr IVPB Q8H-IV GI Last Admin: 05/04/18 10:19 Dose: 100 mls/hr Methylprednisolone Sodium Succinate (Solu-Medrol -) 30 mg IVPUSH BID GI Quetiapine Fumarate (Seroquel -) 25 mg PO HS GI Last Admin: 05/03/18 21:57 Dose: 25 mg Venlafaxine HCl (Effexor -) 37.5 mg PO BID [facility] Last Admin: 05/04/18 10:19 Dose: 37.5 mg - Objective Vital Signs: Vital Signs Temperature 98.3 F 05/04/18 13:00 Pulse Rate 62 05/04/18 13:00 Respiratory Rate 18 05/04/18 13:00 Blood Pressure 152/75 05/04/18 13:00 O2 Sat by Pulse Oximetry (%) 97 05/04/18 14:52 Constitutional: Yes: No Distress Cardiovascular: Yes: Regular Rate and Rhythm, S1, S2 Respiratory: Yes: Diminished Gastrointestinal: Yes: Normal Bowel Sounds, Soft Edema: No Labs: CBC, BMP 05/04/18 05:30 05/04/18 05:30 INR, PTT INR 1.18 (0.83-1.09) H 05/02/18 08:42 Assessment/Plan SEPSIS IMPROVED EXACERBATION COPD R/O HCAP LEUKOCYTOSIS LACTIC ACIDOSIS RESOLVED AZOTEMIA ?UTI PCN ALLERGY PENDING C/S CONTINUE EMPIRIC VANCOMYCIN/ AZTREONAM/ FLAGYL
[2018-05-04] MEDS: APIXABAN 5 MG TABLET PO SCH (22:54)
[2018-05-04] MEDS: QUEtiapine FUMARATE 25 MG TABLET (FP) PO SCH (22:54)
[2018-05-05] MEDS: AZTREONAM 1 GM in DEXTROSE 5%-WATER - 50 ML IVPB SCH ×2 (01:27→14:29)
[2018-05-05 07:29] LABS: HEMOGLOBIN 13.6 GM/dL (11.7-16.9); LYMPH % 4.4 % (8-40); MCH 34.4 pg (25.7-33.7); MCHC 34.7 g/dl (32.0-35.9); MONO % 4.1 % (3.8-10.2); NEUT % 91.5 % (42.8-82.8); PLATELET COUNT 166 K/MM3 (134-434); RBC 3.94 M/mm3 (4.00-5.60); RDW 13.2 % (11.9-15.9); WHITE BLOOD COUNT 11.4 K/mm3 (4.0-10.0)
[2018-05-05 07:37] LABS: ANION GAP 8 MMOL/L (8-16); BLOOD UREA NITROGEN 32 mg/dL (7-18); CALCIUM 7.7 mg/dL (8.5-10.1); CHLORIDE 113 mmol/L (98-107); CO2 25 mmol/L (21-32); CREATININE 0.7 mg/dL (0.55-1.3); GLUCOSE,RANDOM 192 mg/dL (74-106); POTASSIUM 3.8 mmol/L (3.5-5.1); SODIUM 145 mmol/L (136-145)
[2018-05-05] MEDS: methylPREDNISolone NA SUCC 40 MG/1 ML VIAL IVPUSH SCH ×2 (10:49→22:02)
[2018-05-05] MEDS: VENLAFAXINE HCL 37.5 MG TABLET PO SCH ×2 (10:50→22:01)
[2018-05-05 11:54] LABS: HEMATOCRIT 41.2 % (35.4-49); HEMOGLOBIN 14.3 GM/dL (11.7-16.9); MCH 34.5 pg (25.7-33.7); MCHC 34.8 g/dl (32.0-35.9); MEAN CELL VOLUME 99.1 fl (80-96); MEAN PLT VOLUME 9.6 fl (7.5-11.1); PLATELET COUNT 167 K/MM3 (134-434); RBC 4.16 M/mm3 (4.00-5.60); RDW 13.1 % (11.9-15.9); WHITE BLOOD COUNT 13.4 K/mm3 (4.0-10.0)
[2018-05-05 11:56] LABS: ANISOCYTOSIS 0; MACROCYTOSIS 0; PLATELET ESTIMATE NORMAL
--- NOTE | 2018-05-05 11:57 | PN ---
Teaching Attending Note Name of Resident: Genesis Wooten ATTENDING PHYSICIAN STATEMENT I saw and evaluated the patient. I reviewed the resident's note and discussed the case with the resident. I agree with the resident's findings and plan as documented. SUBJECTIVE:no complaint. denies CP, SOB, fever, chills, N/V/C/D OBJECTIVE: Last Vital Signs Temp Pulse Resp BP Pulse Ox 97.6 F 54 L 19 148/70 97 05/05/18 09:04 05/05/18 09:04 05/05/18 09:04 05/05/18 09:04 05/05/18 09:00 General NAD Lungs CTA anteriorly, ASSESSMENT AND PLAN: 82yo M with PMH mental retardation, CAD, HTN, anxiety presented to the ER with bloody diarrhea and respiratory distress. He was found to be in acute hypoxic respiratory distress and severely dehydrated with a AGMA 1. Acute hypoxic respiratory failure- due to COPD exacerbation. currently saturating 97% on 2L NC. no infiltrate seen on CT. on medrol 30mg twice a daily , can likely transition to po tomorrow. titrate down supplemental oxygen as tolerated. pre and post tomorrow. ID and pulmonary on board. 2. severe Sepsis due to suspected PNA and colitis-sterocolitis seen on CT. diarrhea is improving. stool studies negative. on vanco/aztreonam/flagyl (PCN allergy) day 4. will d/w ID about transitioning to po. Flu negative ID on board 3. AGMA- due to lactic acidosis due to sepsis. resolved 4. L DVT- on eliquis 10mg BID x7 days then 5mg BID 5. BRBPR-no repeat episodes. Hgb stable. not a candidate for endoscopy at this time. 5. CAROLANN- due to sepsis. non-ogliuric.resolved. avoid nephrotoxic agents. monitor UOP 6. CAD 7. HTN- controlled. hold oral agents at this time 8. MR 9. DNR 10. anticipate discharge in next 24H
[2018-05-05] MEDS: VANCOMYCIN 1 GRAM (PRE-DOCKED) 1,000 MG/250 ML BAG IVPB SCH (13:14)
--- NOTE | 2018-05-05 13:36 | PN ---
Physical Exam: SUBJECTIVE: Patient seen and examined at bedside. C/o sore throat. On tele, with few missed beats and pauses. No other complaints. OBJECTIVE: Vital Signs Period Temp Pulse Resp BP Sys/Linder Pulse Ox Last 24 Hr 97.6 F-98.5 F 54-73 18-19 148-175/70-97 96-97 GENERAL: The patient is awake, alert, and fully oriented, in no acute distress. on 2L 02 HEAD: Normal with no signs of trauma. EYES: PERRL, extraocular movements intact, sclera anicteric, conjunctiva clear. ENT: Ears normal, nares patent, oropharynx clear without exudates, moist mucous membranes. NECK: Trachea midline, full range of motion, supple. LUNGS: +decreased breath sounds. no accessory m usage HEART: Regular rate and rhythm, S1, S2 without murmur, rub or gallop. ABDOMEN: Soft, nontender, nondistended, normoactive bowel sounds EXTREMITIES: 2+ pt pulses, warm, well-perfused, no edema. NEUROLOGICAL: Cranial nerves II through XII appear to be grossly intact. able to move UE, LE. PSYCH: Normal mood, normal affect. SKIN: Warm, dry Laboratory Tests 05/05/18 05/05/18 05/05/18 06:00 09:00 11:20 WBC 13.4 H MCV 99.1 H MCH 34.5 H Plt Count 167 Sodium 145 Potassium 3.8 Chloride 113 H BUN 32 H Creatinine 0.7 Random Glucose 192 H Vancomycin Pre-Dose 16.8 L Active Medications Generic Name Dose Route Start Last Admin Trade Name Freq PRN Reason Stop Dose Admin Albuterol Sulfate 1 amp 05/02/18 03:22 Ventolin 0.083% Nebulizer Soln - NEB Q4H PRN SHORT OF BREATH/WHEEZING Apixaban 10 mg 05/04/18 22:00 05/04/18 22:54 Eliquis - PO 10 mg BID GI Administration Clonazepam 0.5 mg 05/03/18 10:49 05/05/18 11:51 Klonopin - PO 0.5 mg Q12H PRN Administration AGITATION Vancomycin HCl 1,000 mg in 250 mls @ 200 mls/hr 05/02/18 13:15 05/05/18 13:14 Vancomycin (Pre-Docked) IVPB 200 mls/hr Q24H GI Administration Protocol Aztreonam 1 gm/ Dextrose 50 mls @ 100 mls/hr 05/02/18 13:15 05/05/18 01:27 IVPB 100 mls/hr Q12H GI Administration Protocol Metronidazole 500 mg in 100 mls @ 100 mls/hr 05/02/18 13:15 05/05/18 10:50 Flagyl 500mg Premixed Ivpb - IVPB 100 mls/hr Q8H-IV GI Administration Methylprednisolone Sodium Succinate 30 mg 05/04/18 22:00 05/05/18 10:49 Solu-Medrol - IVPUSH 30 mg BID GI Administration Quetiapine Fumarate 25 mg 05/03/18 22:00 05/04/18 22:54 Seroquel - PO 25 mg HS GI Administration Venlafaxine HCl 37.5 mg 05/03/18 10:00 05/05/18 10:50 Effexor - PO 37.5 mg BID GI Administration ASSESSMENT/PLAN: 82 y/o M with PMH MR, CAD, HTN, anxiety, who presented to the ED with bloody diarrhea and respiratory distress. Found to have acute hypoxic respiratory distress and severely dehydrated, with anion gap metabolic acidosis. #Acute hypoxic RF 2/2 COPD exacerbation -weaned off NC 02 -c/w medrol 30mg IVP BID. can change to PO tomorrow if continues to improve -pre and post testing tomorrow -Pulm: Dr. Henderson #Severe sepsis 2/2 PNA and colitis -c/w vanc, azactam, flagyl (Day 4) -awaiting recs on course of tx -ID: Dr. Mosher #L DVT -c/w eliquis 10 mg PO BID x 1wk then 5mg BID #BRBPR -H/H is stable, no recent episodes -continue to monitor #HTN-controlled #Anxiety -c/w klonopin PRN #F/E/N no need for IVF at this time continue to follow lytes chopped diet, with nectar thick liquid #PPX on eliquis #Dispo tele can d/c tomorrow, awaiting ID recs on PO abx pre and post testing tomorrow Visit type - Emergency Visit Emergency Visit: No - New Patient This patient is new to me today: Yes Date on this admission: 05/05/18 - Critical Care Critical Care patient: No
[2018-05-05] MEDS: APIXABAN 5 MG TABLET PO SCH ×2 (15:08→22:01)
--- NOTE | 2018-05-05 15:18 | PN ---
Progress Note (short form) - Note Progress Note: PULMONARY CONFUSED VSS/AFEBRILE Gen: AWAKE Heart: RRR Lung: scattered rhonchi Abd: soft, nontender Ext: no edema LABS/MEDS/NOTES/IMAGES REVIEWED ASSESSMENT AND PLAN: Acute Hypoxic Respiratory Failure UTI r/o Pneumonia Severe Sepsis Acute Kidney Injury Lactic Acidosis Acute COPD Exacerbation r/o GI Bleed HTN Mental Retardation - IV antibiotics - IVF - monitor urine output, creatinine - medrol tapering - inhaled bronchodilators - protonix - DVT prophylaxis Demarco CASSIDY MD
--- NOTE | 2018-05-05 16:19 | PN ---
Progress Note, Physician History of Present Illness: VERY CONFUSED AND DISORIENTED OFFERS NO COMPLAINTS AFEBRILE - Current Medication List Current Medications: Active Medications Albuterol Sulfate (Ventolin 0.083% Nebulizer Soln -) 1 amp NEB Q4H PRN PRN Reason: SHORT OF BREATH/WHEEZING Apixaban (Eliquis -) 10 mg PO BID [facility] Last Admin: 05/05/18 15:08 Dose: 10 mg Clonazepam (Klonopin -) 0.5 mg PO Q12H PRN PRN Reason: AGITATION Last Admin: 05/05/18 11:51 Dose: 0.5 mg Vancomycin HCl (Vancomycin (Pre-Docked)) 1,000 mg in 250 mls @ 200 mls/hr IVPB Q24H [facility]; Protocol Last Admin: 05/05/18 13:14 Dose: 200 mls/hr Aztreonam 1 gm/ Dextrose 50 mls @ 100 mls/hr IVPB Q12H [facility]; Protocol Last Admin: 05/05/18 14:29 Dose: 100 mls/hr Metronidazole (Flagyl 500mg Premixed Ivpb -) 500 mg in 100 mls @ 100 mls/hr IVPB Q8H-IV GI Last Admin: 05/05/18 10:50 Dose: 100 mls/hr Methylprednisolone Sodium Succinate (Solu-Medrol -) 30 mg IVPUSH BID [facility] Last Admin: 05/05/18 10:49 Dose: 30 mg Quetiapine Fumarate (Seroquel -) 25 mg PO HS [facility] Last Admin: 05/04/18 22:54 Dose: 25 mg Venlafaxine HCl (Effexor -) 37.5 mg PO BID [facility] Last Admin: 05/05/18 10:50 Dose: 37.5 mg - Objective Vital Signs: Vital Signs Temperature 97.4 F L 05/05/18 14:00 Pulse Rate 71 05/05/18 14:00 Respiratory Rate 20 05/05/18 14:00 Blood Pressure 153/95 05/05/18 14:00 O2 Sat by Pulse Oximetry (%) 95 05/05/18 14:33 Constitutional: Yes: No Distress Cardiovascular: Yes: Regular Rate and Rhythm Respiratory: Yes: Diminished Gastrointestinal: Yes: Normal Bowel Sounds, Soft Labs: CBC, BMP 05/05/18 11:20 05/05/18 06:00 INR, PTT INR 1.18 (0.83-1.09) H 05/02/18 08:42 Assessment/Plan SEPSIS EXACERBATION COPD R/O HCAP LEUKOCYTOSIS LACTIC ACIDOSIS RESOLVED AZOTEMIA ?UTI PCN ALLERGY CONTINUE EMPIRIC VANCOMYCIN/ AZTREONAM/ FLAGYL
[2018-05-05] MEDS ORDERED: PT OWN MED DRAWER 7, Y5N ONE ×2 (21:57→22:04)
[2018-05-05] MEDS: QUEtiapine FUMARATE 25 MG TABLET (FP) PO SCH (22:02)
[2018-05-06] MEDS ORDERED: PT OWN MED DRAWER 7, Y5N ONE (01:54)
[2018-05-06] MEDS: AZTREONAM 1 GM in DEXTROSE 5%-WATER - 50 ML IVPB SCH ×2 (02:04→14:48)
[2018-05-06 06:48] LABS: HEMATOCRIT 41.9 % (35.4-49); MCH 35.3 pg (25.7-33.7); MCHC 35.7 g/dl (32.0-35.9); MEAN CELL VOLUME 98.8 fl (80-96); MEAN PLT VOLUME 10.3 fl (7.5-11.1); PLATELET COUNT 167 K/MM3 (134-434); RBC 4.24 M/mm3 (4.00-5.60); WHITE BLOOD COUNT 18.2 K/mm3 (4.0-10.0)
[2018-05-06 07:05] LABS: ANION GAP 6 MMOL/L (8-16); BLOOD UREA NITROGEN 22 mg/dL (7-18); CALCIUM 8.4 mg/dL (8.5-10.1); CHLORIDE 108 mmol/L (98-107); CO2 29 mmol/L (21-32); CREATININE 0.6 mg/dL (0.55-1.3); GLUCOSE,RANDOM 165 mg/dL (74-106); MAGNESIUM 2.1 mg/dL (1.8-2.4); POTASSIUM 3.3 mmol/L (3.5-5.1); SODIUM 143 mmol/L (136-145)
[2018-05-06] MEDS ORDERED: POTASSIUM CHLORIDE TABS 20 MEQ TABLET.ER (FP) PO ONE (07:06)
[2018-05-06 07:29] LABS: PHOSPHOROUS 0.9 mg/dL (2.5-4.9)
[2018-05-06] MEDS ORDERED: NAPH,MB-DB/K PH,MBDB POWDER PACKET PO ONE (07:33)
[2018-05-06] MEDS ORDERED: POTASSIUM PHOSPHATE 30 MM in DEXTROSE 5%-WATER - 500 ML IVPB ONE (08:15)
[2018-05-06] MEDS: methylPREDNISolone NA SUCC 40 MG/1 ML VIAL IVPUSH SCH (09:54)
[2018-05-06] MEDS: VENLAFAXINE HCL 37.5 MG TABLET PO SCH ×2 (10:18→22:26)
[2018-05-06] MEDS: APIXABAN 5 MG TABLET PO SCH ×2 (10:19→22:26)
[2018-05-06] MEDS: LACTOBACILLUS ACIDOPHILUS 1 TABLET PO SCH (10:19)
--- NOTE | 2018-05-06 10:56 | PN ---
Progress Note, CHIEF DEPUTY COURT CLERK - Note Progress Note: 82 yo seen at bedside for swallow eval to r/o dysphagia. Pt presents as very lethargic at bedside and not able to respond to auditory and gentle tactile stimulation. Current diet puree with nectar thicken liquids. CHIEF DEPUTY COURT CLERK did not attempt swallow eval at this time. Will try later again later today.
--- NOTE | 2018-05-06 11:32 | PN ---
Progress Note, Physician History of Present Illness: PULMONARY LETHARGIC ON NASAL O2,O2 SAT 89% - Current Medication List Current Medications: Active Medications Albuterol Sulfate (Ventolin 0.083% Nebulizer Soln -) 1 amp NEB Q4H PRN PRN Reason: SHORT OF BREATH/WHEEZING Apixaban (Eliquis -) 10 mg PO BID GI Last Admin: 05/05/18 22:01 Dose: 10 mg Clonazepam (Klonopin -) 0.5 mg PO Q12H PRN PRN Reason: AGITATION Last Admin: 05/05/18 11:51 Dose: 0.5 mg Vancomycin HCl (Vancomycin (Pre-Docked)) 1,000 mg in 250 mls @ 200 mls/hr IVPB Q24H GI; Protocol Last Admin: 05/05/18 13:14 Dose: 200 mls/hr Aztreonam 1 gm/ Dextrose 50 mls @ 100 mls/hr IVPB Q12H GI; Protocol Last Admin: 05/06/18 02:04 Dose: 100 mls/hr Metronidazole (Flagyl 500mg Premixed Ivpb -) 500 mg in 100 mls @ 100 mls/hr IVPB Q8H-IV GI Last Admin: 05/06/18 09:44 Dose: 100 mls/hr Potassium Phosphate 30 mm/ (Dextrose) 510 mls @ 62.5 mls/hr IVPB ONCE ONE Stop: 05/06/18 16:24 Last Admin: 05/06/18 09:31 Dose: 62.5 mls/hr Methylprednisolone Sodium Succinate (Solu-Medrol -) 30 mg IVPUSH BID GI Last Admin: 05/06/18 09:54 Dose: 30 mg Quetiapine Fumarate (Seroquel -) 25 mg PO HS GI Last Admin: 05/05/18 22:02 Dose: 25 mg Venlafaxine HCl (Effexor -) 37.5 mg PO BID GI Last Admin: 05/05/18 22:01 Dose: 37.5 mg - Objective Vital Signs: Vital Signs Temperature 97.8 F 05/06/18 10:00 Pulse Rate 62 05/06/18 10:00 Respiratory Rate 20 05/06/18 10:00 Blood Pressure 129/63 05/06/18 10:00 O2 Sat by Pulse Oximetry (%) 95 05/06/18 09:00 Constitutional: Yes: Thin, Other (LETHARGIC) Eyes: Yes: WNL HENT: Yes: WNL Neck: Yes: WNL Cardiovascular: Yes: Pulse Irregular, S1, S2 Respiratory: Yes: Diminished Gastrointestinal: Yes: Normal Bowel Sounds, Soft Extremities: Yes: WNL Edema: No Labs: CBC, BMP 05/06/18 05:30 05/06/18 05:30 INR, PTT INR 1.18 (0.83-1.09) H 05/02/18 08:42 Assessment/Plan ASSESSMENT AND PLAN: Acute Hypoxic Respiratory Failure UTI r/o Pneumonia Severe Sepsis Acute Kidney Injury Lactic Acidosis Acute COPD Exacerbation r/o GI Bleed HTN Mental Retardation - IV antibiotics - IVF - monitor urine output, creatinine - medrol - inhaled bronchodilators - protonix - DVT prophylaxis - chest x-ray - abg DR FRANKLIN
[2018-05-06 12:05] LABS: ARTERIAL BLD GAS O2 SATURATION 98.5 % (95-98); ARTERIAL BLOOD GAS BASE EXCESS 4.5 meq/l (-2-2); ARTERIAL BLOOD GAS PCO2 48.3 mmHg (35-45); ARTERIAL BLOOD GAS PO2 104 mmHg (80-105)
[2018-05-06 12:07] LABS: ALLENS TEST POSITIVE
--- NOTE | 2018-05-06 12:26 | PN ---
Progress Note, Physician History of Present Illness: LETHARGIC TODAY OFFERS NO COMPLAINTS AFEBRILE - Current Medication List Current Medications: Active Medications Albuterol Sulfate (Ventolin 0.083% Nebulizer Soln -) 1 amp NEB Q4H PRN PRN Reason: SHORT OF BREATH/WHEEZING Apixaban (Eliquis -) 10 mg PO BID [facility] Last Admin: 05/05/18 22:01 Dose: 10 mg Clonazepam (Klonopin -) 0.5 mg PO Q12H PRN PRN Reason: AGITATION Last Admin: 05/05/18 11:51 Dose: 0.5 mg Vancomycin HCl (Vancomycin (Pre-Docked)) 1,000 mg in 250 mls @ 200 mls/hr IVPB Q24H GI; Protocol Last Admin: 05/05/18 13:14 Dose: 200 mls/hr Aztreonam 1 gm/ Dextrose 50 mls @ 100 mls/hr IVPB Q12H GI; Protocol Last Admin: 05/06/18 02:04 Dose: 100 mls/hr Metronidazole (Flagyl 500mg Premixed Ivpb -) 500 mg in 100 mls @ 100 mls/hr IVPB Q8H-IV GI Last Admin: 05/06/18 09:44 Dose: 100 mls/hr Potassium Phosphate 30 mm/ (Dextrose) 510 mls @ 62.5 mls/hr IVPB ONCE ONE Stop: 05/06/18 16:24 Last Admin: 05/06/18 09:31 Dose: 62.5 mls/hr Methylprednisolone Sodium Succinate (Solu-Medrol -) 30 mg IVPUSH DAILY [facility] Quetiapine Fumarate (Seroquel -) 25 mg PO HS [facility] Last Admin: 05/05/18 22:02 Dose: 25 mg Venlafaxine HCl (Effexor -) 37.5 mg PO BID [facility] Last Admin: 05/05/18 22:01 Dose: 37.5 mg - Objective Vital Signs: Vital Signs Temperature 97.8 F 05/06/18 10:00 Pulse Rate 62 05/06/18 10:00 Respiratory Rate 20 05/06/18 10:00 Blood Pressure 129/63 05/06/18 10:00 O2 Sat by Pulse Oximetry (%) 95 05/06/18 09:00 Constitutional: Yes: No Distress Eyes: Yes: Conjunctiva Clear Cardiovascular: Yes: Regular Rate and Rhythm, S1, S2 Respiratory: Yes: Diminished Gastrointestinal: Yes: Normal Bowel Sounds, Soft. No: Tenderness Edema: No Labs: CBC, BMP 05/06/18 05:30 05/06/18 05:30 INR, PTT INR 1.18 (0.83-1.09) H 05/02/18 08:42 Assessment/Plan SEPSIS EXACERBATION COPD R/O HCAP LEUKOCYTOSIS LACTIC ACIDOSIS RESOLVED AZOTEMIA ?UTI PCN ALLERGY CONTINUE EMPIRIC VANCOMYCIN/ AZTREONAM/ FLAGYL DAY #5
--- NOTE | 2018-05-06 12:48 | PN ---
Physical Exam: SUBJECTIVE: Patient seen and examined at bedside. overnight sat 88% on 3LNC. pt transitioned to NOAC for DVT.. There is no evidence of GI bleed at this time, no blood in diapers, no andie bleeding, H/H has remained stable. + hypophosphotemia, will replete lethargic but arousable today to verbal and physical stimulation. AOX2-3. OBJECTIVE: Vital Signs Period Temp Pulse Resp BP Sys/Linder Pulse Ox Last 24 Hr 97.4 F-97.9 F 62-92 20-22 129-153/63-95 95-95 GENERAL: lethargic but arousable today to verbal and physical stimulation. AOX2- 3 HEAD: NCAT EYES: PERRL, extraocular movements intact, sclera anicteric, conjunctiva clear. No ptosis. ENT: nares patent, oropharynx clear without exudates, MMM NECK: Trachea midline, full range of motion, supple. LUNGS: CTA anteriorly. diminished breath sounds at bases HEART: RRR, S1, S2 without murmur, rub or gallop. ABDOMEN: Soft, NTND, normoactive bowel sounds, no guarding, no rebound, no hepatosplenomegaly, no masses. EXTREMITIES: 2+ pulses, warm, well-perfused, no edema. NEUROLOGICAL: lethargic but arousable. no facial drooping. strength 3-4/5 in UE and LE, sensation intact PSYCH: lethargic but arousable. does not follow commands. SKIN: Warm, dry, normal turgor, no rashes or lesions noted Laboratory Results - last 24 hr 05/06/18 05/06/18 05/06/18 02:10 05:30 05:30 WBC 18.2 H RBC 4.24 Hgb 15.0 Hct 41.9 MCV 98.8 H MCH 35.3 H MCHC 35.7 RDW 13.0 Plt Count 167 MPV 10.3 PTT (Actin FS) 36.0 Anticoagulation Therapy Puncture Site ABG pH ABG pCO2 at Pt Temp ABG pO2 at Pt Temp ABG HCO3 ABG O2 Sat (Measured) ABG O2 Content ABG Base Excess Vishnu Test O2 Delivery Device Oxygen Flow Rate Vent Mode Vent Rate Mechanical Rate Pressure Support Vent Sodium Potassium Chloride Carbon Dioxide Anion Gap BUN Creatinine Creat Clearance w eGFR POC Glucometer 192 Random Glucose Calcium Phosphorus Magnesium 05/06/18 05/06/18 05:30 11:45 WBC RBC Hgb Hct MCV MCH MCHC RDW Plt Count MPV PTT (Actin FS) Anticoagulation Therapy No Result Required. Puncture Site Right radial ABG pH 7.40 ABG pCO2 at Pt Temp 48.3 H ABG pO2 at Pt Temp 104 ABG HCO3 29.6 H ABG O2 Sat (Measured) 98.5 H ABG O2 Content 18.1 ABG Base Excess 4.5 H Vishnu Test Positive O2 Delivery Device No Result Required. Oxygen Flow Rate 3l Vent Mode No Result Required. Vent Rate No Result Required. Mechanical Rate No Result Required. Pressure Support Vent No Result Required. Sodium 143 Potassium 3.3 L Chloride 108 H Carbon Dioxide 29 Anion Gap 6 L BUN 22 H Creatinine 0.6 Creat Clearance w eGFR 128.36 POC Glucometer Random Glucose 165 H Calcium 8.4 L Phosphorus 0.9 L* Magnesium 2.1 Active Medications Generic Name Dose Route Start Last Admin Trade Name Freq PRN Reason Stop Dose Admin Albuterol Sulfate 1 amp 05/02/18 03:22 Ventolin 0.083% Nebulizer Soln - NEB Q4H PRN SHORT OF BREATH/WHEEZING Apixaban 10 mg 05/04/18 22:00 05/05/18 22:01 Eliquis - PO 10 mg BID GI Administration Clonazepam 0.5 mg 05/03/18 10:49 05/05/18 11:51 Klonopin - PO 0.5 mg Q12H PRN Administration AGITATION Vancomycin HCl 1,000 mg in 250 mls @ 200 mls/hr 05/02/18 13:15 05/05/18 13:14 Vancomycin (Pre-Docked) IVPB 200 mls/hr Q24H GI Administration Protocol Aztreonam 1 gm/ Dextrose 50 mls @ 100 mls/hr 05/02/18 13:15 05/06/18 02:04 IVPB 100 mls/hr Q12H GI Administration Protocol Metronidazole 500 mg in 100 mls @ 100 mls/hr 05/02/18 13:15 05/06/18 09:44 Flagyl 500mg Premixed Ivpb - IVPB 100 mls/hr Q8H-IV IG Administration Potassium Phosphate 30 mm/ 510 mls @ 62.5 mls/hr 05/06/18 08:15 05/06/18 09: 31 Dextrose IVPB 05/06/18 16:24 62.5 mls/hr ONCE ONE Administration Methylprednisolone Sodium Succinate 30 mg 05/07/18 10:00 Solu-Medrol - IVPUSH DAILY GI Quetiapine Fumarate 25 mg 05/03/18 22:00 05/05/18 22:02 Seroquel - PO 25 mg HS GI Administration Venlafaxine HCl 37.5 mg 05/03/18 10:00 05/05/18 22:01 Effexor - PO 37.5 mg BID GI Administration 04/30 US carotids: left moderate to large plaque (6mm thickness) internal carotid artery with 50-69% stenosis [id number] CT/ABDOMEN & PELVIS CT W/O CONTR [id number] CT/CHEST CT WITHOUT CONTRAST INDICATION: Cough, GI bleed. TECHNIQUE: Helical images of the chest, abdomen and pelvis were obtained noncontrast . COMPARISON: 01/27/2016 FINDINGS: LUNGS: Discoid atelectasis present at the left base. Dependent atelectasis noted at the left base. There is elevation of the left diaphragm. Discoid atelectasis present at the right upper lobe. No suspicious lung nodules seen. No endobronchial lesions noted. PLEURA: No pleural effusions or pneumothorax seen. MEDIASTINUM: No pathologic adenopathy was appreciated. CARDIAC: The root of the aorta is mildly dilated measuring 4 cm. Vascular calcifications noted including coronary. The heart is normal size. No pericardiac effusion noted. Mediastinal shift to the right is present. LIVER: Negative. GALLBLADDER: Gallstone suspected. No pericholecystic fluid identified. BILIARY DUCTS: Pneumobilia is present, correlate with instrumentation. PANCREAS: Imaging is limited. No focal masses were appreciated. SPLEEN: Not visualized ADRENALS: Bulky left adrenal KIDNEYS: Multiple cysts noted on the right kidney with a lower pole dominant cyst that shows mural calcifications unchanged. No hydronephrosis seen. The left kidney shows a hyperdense cystic-like structure within the upper pole measuring 2.9 cm which appears unchanged from prior imaging. Correlate with ultrasound. AORTA: The abdominal aorta appears normal caliber with minimal calcifications noted. Iliofemoral's appear ectatic. LYMPH NODES: Negative. BOWEL: There is thickening of the rectal wall with a large amount of stool suggesting stercoral colitis. The rectum is distended with air. Underlying proctitis not excluded. No pneumatosis present. Similar findings were noted on prior imaging. The stomach is distended with air and fluid. No pneumatosis is identified. No free peritoneal air or fluid is seen. PELVIS: Ford catheter noted in place. Likely bladder cyst on the left is again noted. Streak artifacts from right hip prostheses create streak artifacts. OTHER: Demineralization noted. Spondylotic changes noted of the spine. No aggressive bone lesions noted. Mild scoliosis seen. Motion artifact degrading imaging of the ribs. Preliminary dictation was generated by the on-call radiologist at the time of this procedure. IMPRESSION: Marked elevation of the left diaphragm as discussed above. There is dilatation of the stomach containing air and fluid with no pneumatosis identified. There is thickening of the rectal wall suggesting stercoral colitis, underlying proctitis not excluded. Similar findings noted on prior imaging. Right renal cyst with calcifications seen previously. Incidentally, nonobstructing stone within the lower pole of the right kidney was visualized. Questionable complex cyst within the upper pole of the left kidney. Correlate with ultrasound imaging. Pneumobilia, correlate with prior instrumentation. Cholelithiasis seen previously. 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 Additional comments noted above. Duplex of LE 05/02/18 shows: L side thrombus is identified within the popliteal and posterior tibial veins. The common and superficial femoral veins are patent. ASSESSMENT/PLAN: 80 yo M w/ PMHx of dementia/mental retardation, anxiety, HTN, COPD (2-3L O2), CAD, GERD, L carotid stenosis, and recently admitted for fall and UTI, BIBEMS from [facility] for evaluation of bloody diarrhea, vomiting and respiratory distress, found to be in acute hypoxic respiratory distress and severely dehydrated with a AGMA # Severe sepsis 2/2 recurrent UTI? and suspected aspiration PNA and colitis- sterocolitis seen on CT, c/b Acute hypoxic respiratory failure 2/2 COPD exacerbation - diarrhea is improving, currently saturating 95% 2L. no infiltrate seen on CT noted above -Febrile, tachycardic, tachypneic at presentation to ED -UA postive for UTI, Ucx enterococcus avium pansensitive -CXR no sign of acute chest process -leukocytosis: 18.2>>13.5>>13.8>>15.4>>14.3....18 -Lactic acidosis: 3.2>>3.4>>1.8, resolved -ID consult (Dr. Sheffield) -s/p Vanc and Flagyl x1 in ED. s/p Meropenam x1 on floors -empiric vanc/flagyl/aztreonam day 5, ID recs appreciated. (PCN allergic), will d/w ID about transitioning to po -ABG - metabolic acidosis: pH:7.27; Co2 43.9 - resolved -poor candidate for BiPAP given mental status and history of vomiting, however saturating well, and successfully transitioned from BIPAP to Venti Mask 05/02/18 , per ICU team. currently satting well on 50% VM O2, titrate down as tolerated. if needs increased Vent/O2 support consider intubation. -CT A/P - +colitis-sterocolitis, noted above -C. diff, Flu, stool cx negative -IV Solumedrol 30 mg qd, can likely transition to po tomorrow -titrate down supplemental O2 as tolerated. -Albuterol 0.083% nebs PRN -pre/post joseph -speech swallow eval #LLE DVT -Duplex of LE 05/02/18 shows: L side thrombus is identified within the popliteal and posterior tibial veins. The common and superficial femoral veins are patent. here is no evidence of GI bleed at this time, no blood in diapers, no andie bleeding and second FOBT neg, H/H has remained stable, patient started on Heparin gtt for DVT. -s/p Heparin drip -on eliquis 10mg BID x7 days then 5mg BID #BRBPR - appears to be resolved. no repeat episodes. H/H stable, not a candidate for endoscopy at this time. +colitis-sterocolitis, noted above on CT Initial FOBT was positive. Second FOBT was negative. monitor H/H c diff neg dcd IV Protonix gtt, as does not appear to be an upper GI bleed Dilated bowel seen on CT appears to be similar to prior CT in 2016. GI consult (Dr. Perkins) As per EMR, patient had gastric volvulus in 2016, was managed conservatively Last EGD/Colonoscopy unknown -Surgery contacted by GI - per his note if persistently vomiting will need NGT and may need transfer to teritary care center for surgical evaluation #AGMA- due to lactic acidosis due to sepsis. resolved w/ IVF #Elevated troponin -0.04>>0.07>>0.06>>0.03 -Stop trending #CAROLANN 2/2 sepsis - Cr 1.4....0.6, resolved w/ IVF, back at base line Cr ~.7 -monitor UOP # Dementia/MR and anxiety: Quetiapine 25 mg PO HS ; Venlafaxine 37.5 mg PO BID ; clonazePAM 0.5 mg PO BID. # HTN - controlled Hold BP meds. # Hx of Bradycardia Last admission, his rate dropped to 30s at night without prolonged pauses and APCs # CAD resume ASA 81 daily # Carotid Stenosis -USG of carotids done in 04/30 with left carotid stenosis 50-60% # GERD Protonix # FEN PO hydration replete prn, +hypophosphotemia, will replete puree diet, nectar thick liquids # Prophylaxis DVT: SCDs GI: c/w protonix PO 40 for ppx in setting of steroid use and GERD bacid for c diff ppx while on abx #Code Status: DNR. Daughter agrees for intubation if required. Need to clarify more about code status. Dispo tele -pre/post joseph -anticipate dc in 24-48hr Visit type - Emergency Visit Emergency Visit: Yes ED Registration Date: 05/02/18 Care time: The patient presented to the Emergency Department on the above date and was hospitalized for further evaluation of their emergent condition. - New Patient This patient is new to me today: Yes Date on this admission: 05/06/18 - Critical Care Critical Care patient: No
--- NOTE | 2018-05-06 13:59 | PN ---
Progress Note, MORTAR WORKER - Note Progress Note: Second attempt to evaluate swallow status. Pt remains lethargic and not able to participate in dysphagia eval at this time. wildlife officer in agreement. MORTAR WORKER with try again at another time.
[2018-05-06] MEDS: VANCOMYCIN 1 GRAM (PRE-DOCKED) 1,000 MG/250 ML BAG IVPB SCH (14:48)
--- NOTE | 2018-05-06 15:01 | PN ---
Teaching Attending Note Name of Resident: Chance Lewis ATTENDING PHYSICIAN STATEMENT I saw and evaluated the patient. I reviewed the resident's note and discussed the case with the resident. I agree with the resident's findings and plan as documented. SUBJECTIVE:lethargic. denies any complaints OBJECTIVE: Last Vital Signs Temp Pulse Resp BP Pulse Ox 97.8 F 62 20 129/63 95 05/06/18 10:00 05/06/18 10:00 05/06/18 10:00 05/06/18 10:00 05/06/18 09:00 General lethargic, responsive to verbal stimuli but falls back asleep CV S1 S2 RRR no murmur/rub/gallop Lungs CTA anteriorly, ASSESSMENT AND PLAN: 82yo M with PMH mental retardation, CAD, HTN, anxiety presented to the ER with bloody diarrhea and respiratory distress. He was found to be in acute hypoxic respiratory distress and severely dehydrated with a AGMA 1. Acute hypoxic respiratory failure- due to COPD exacerbation. currently saturating 97% on 2L NC. check ABG. check CXR. reduce medrol to daily dosing. ID and pulmonary on board. 2. severe Sepsis due to suspected PNA and colitis-sterocolitis seen on CT. increased leukocytosis most likely due to steroids however concern for aspiration. will repeat CXR. swallow eval. on vanco/aztreonam/flagyl (PCN allergy) day 5. Flu negative ID on board 3. acute metabolic encephalopathy- concern for aspiration. check ABG to look for hypercapnia. did not receive any sedating medications in past 24H. will monitor for improvement. consider head CT if no improvement. 4. Severe hypophosphatemia- Kphos. repeat level later 5. hypokalemia- Kphos 6. AGMA- due to lactic acidosis due to sepsis. resolved 7. L DVT- on eliquis 10mg BID x7 days then 5mg BID 8. BRBPR-no repeat episodes. Hgb stable. not a candidate for endoscopy at this time. 9. CAROLANN- due to sepsis. non-ogliuric.resolved. avoid nephrotoxic agents. monitor UOP 10. CAD 11. HTN- controlled. hold oral agents at this time 12. MR 13. DNR
[2018-05-06 15:31] LABS: ANION GAP 4 MMOL/L (8-16); BLOOD UREA NITROGEN 22 mg/dL (7-18); CALCIUM 7.7 mg/dL (8.5-10.1); CHLORIDE 109 mmol/L (98-107); CO2 31 mmol/L (21-32); CREATININE 0.5 mg/dL (0.55-1.3); GLUCOSE,RANDOM 145 mg/dL (74-106); POTASSIUM 3.7 mmol/L (3.5-5.1); SODIUM 144 mmol/L (136-145)
[2018-05-06] MEDS: QUEtiapine FUMARATE 25 MG TABLET (FP) PO SCH (22:26)
[2018-05-07] MEDS ORDERED: PT OWN MED DRAWER 7, Y5N ONE ×2 (01:18→21:53)
[2018-05-07] MEDS: AZTREONAM 1 GM in DEXTROSE 5%-WATER - 50 ML IVPB SCH ×2 (01:25→13:38)
[2018-05-07 08:13] LABS: BASO % 0.2 % (0-2.0); EOS % 0.2 % (0-4.5); HEMATOCRIT 41.9 % (35.4-49); HEMOGLOBIN 14.7 GM/dL (11.7-16.9); LYMPH % 14.4 % (8-40); MEAN CELL VOLUME 99.8 fl (80-96); MEAN PLT VOLUME 10.3 fl (7.5-11.1); MONO % 6.3 % (3.8-10.2); NEUT % 78.9 % (42.8-82.8); PLATELET COUNT 171 K/MM3 (134-434); RDW 13.3 % (11.9-15.9); WHITE BLOOD COUNT 12.8 K/mm3 (4.0-10.0)
[2018-05-07 08:29] LABS: ANION GAP 5 MMOL/L (8-16); BLOOD UREA NITROGEN 20 mg/dL (7-18); CALCIUM 7.6 mg/dL (8.5-10.1); CHLORIDE 108 mmol/L (98-107); CO2 32 mmol/L (21-32); CREATININE 0.6 mg/dL (0.55-1.3); GLUCOSE,RANDOM 70 mg/dL (74-106); MAGNESIUM 1.9 mg/dL (1.8-2.4); PHOSPHOROUS 2.1 mg/dL (2.5-4.9); POTASSIUM 3.5 mmol/L (3.5-5.1); SODIUM 145 mmol/L (136-145)
[2018-05-07] MEDS ORDERED: POTASSIUM PHOSPHATE 30 MM in DEXTROSE 5%-WATER - 500 ML IVPB ONE (09:30)
[2018-05-07] MEDS: VENLAFAXINE HCL 37.5 MG TABLET PO SCH ×2 (09:34→23:05)
--- NOTE | 2018-05-07 09:41 | CONSULT ---
Admitting History and Physical - Past Medical History SOUS CHEF: Yes: Dementia Cardiovascular: Yes: CAD (no history available ), HTN, Hyperlipdemia Gastrointestinal: Yes: GERD, Hiatal Hernia (large left sided paraesophageal hernia) Psych: Yes: Anxiety - Past Surgical History Past Surgical History: Yes: Appendectomy - Advance Directives Advance Directives: Yes: DNR - Smoking History Smoking history: Never smoked Have you smoked in the past 12 months: No - Alcohol/Substance Use Hx Alcohol Use: No - Social History ADL: Support Services History - Admission Reason For Visit: GASTROINTESTINAL HEMORRHAGE,CHRONIC OBSTRUCTIVE - Hearing Hearing: Normal Hearing Aide: No With Patient: No Speech Evaluation - Communication Primary Language: YORUBA Communication: Yes: Simple Responses (WFL) Oral Expression Ability: Yes: Mild Impairment - Speech Production Apraxia: No Able to Make Needs Known: Yes: Mildly Impaired Intelligibility: Yes: WNL - Speech Characteristics Voice Loudness: Normal Voice Pitch: Yes: Normal Voice Phonatory-based Quality: Yes: Normal Speech Pattern: Normal Nasal Resonance: Normal Articulation: Yes: Precise Rate of Speech: Intact Voice Comment: Vocal quality is WNL. - Language/Auditory Comprehension Follows: Yes: 1 Stage Simple Commands Observation: Able to respond to yes/no queries: Yes, Yes/No Confusion: Yes ( secondary to ID ), Comprehends Conversational Speech: Yes, Benefits from Slow Speech: Yes, Benefits from Repetiton: Yes, Benefits from Increased Volume of Speech: No - Language/Verbal Expression Able to Respond to Simple Queries: Yes: WNL Able to Communicate Wants and Needs: Yes: WNL Functional Communication Status: Yes: WNL Aware of Errors: Yes Attempts to Correct Errors: No Use of Gestures: No Written Expression: Not examined Oral Expression: WFL for simple questions Reading Comprehension: Not examined Calculations: Not examined Attention: Yes: Mild Impairment (secondary to intellectual disabilities dx) - Memory/Perception USP Memory: Yes: Mildly Impaired Short Term Memory: Yes: WNL - Swallow Evaluation/Bedside Assessment Current Nutritional Intake: NPO (pending swallow eval. diet order was pureed and nectar thicken liquids but patient has been lethargic past 24 hours.) Oral Secretions: Yes: WFL Tracheostomy Present: No Patient on Ventilator: No Dentition: Yes: Adequate (fair condition) Facial Symmetry at Rest: Symmetrical Facial Symmetry on Retraction: Symmetrical Facial Movement: Controlled Sensation: Normal Facial Comment: WFL for speech and swallowing purposes Jaw Position: Closed at Rest Against Resistance Opening: Normal Against Resistance Closing: Normal Pucker Lips: Normal Smile: Normal Lips, Comment: WFL for speech and swallowing purposes Lingual Movement: Normal Lingual Speed of Movement: Normal Lingual Movement Strgth Against Opposition: Normal Lingual Movement Characteristics: Normal Lingual Comment: WFL for speech and swallowing purposes Soft Palate Description: Normal Color Hard Palate Description: Normal Color Gag Reflex: Strong Bite Reflex: Present Laryngeal Elevation: Impaired (delayed 2-3 seconds) Needs Assistance: Yes Rate of Intake: WFL Bolus Size: WFL Labial Seal: WFL Chewing: WFL Oral Prep Time: WFL A-P Transit: WFL Pocketing: None Timing of Swallow: Delayed (delayed 2-3 seconds) Coughing/Throat Clear: Yes (reduced secretion management ) Change in Voice: No Other Findings/Remarks: 82 yo male seen at bedside for swallow eval to r/o dysphagia. This a.m. pt is verbal, A&Ox1 sleepy but wakes with auditory stimuli. Admitted to [facility] for GI hemorrhage? PMHX includes: intellectual disabilities, CAD, HTN, anxiety. Currently being treated for respiratory distress COPD exacerbation. Possible PNA ? NC in use. Oral motor is WFL. Airway protection in WFL Pt given po trials of pureed only with total assistance revealed good acceptance , adequate bolus formation and transport. Pharyngeal swallows are delayed 2-3 seconds with occasional coughing after the swallow (possible aspiration or reduced secretion management). Pt given po trials of thin and thicken liquids via spoon and cup with total assistance revealed good acceptance, adequate bolus containment and transport. Pharyngeal swallows are delayed 2-3 seconds with occasional coughing after the swallow especially with thin liquids suggesting possible aspiration. Recommendations - Speech Evaluation, Impression/Plan Impression: 82 yo male presents with mild to moderate pharyngeal phase dysphagia for purees and thin liquids. Coughing observed with most po trials of solids and thin liquids. No changes in voicing after the swallow. Coughing may be due to secretion management. Lens Coater Goals: tolerate the least restrictive diet without s/s of aspiration. Short Term Goals: tolerate po trials of puree and nectar thicken liquids without s/s of aspiration. - Dysphagia Impressions/Plan Swallowing Skills: Impaired Dysphagia Impressions: Mild Impairment, Moderate Impairment (pharyngeal phase), Risk of Aspiration, Suspect Aspiration *Silent aspiration: cannot be R/O at bedside Dysphagia Treatment Plan: Small Bites (once cleared by MBS), Trial Feedings ( pureed and nectar thicken liquids), Safe Rate (once cleared by MBS), 1/2 tsp. at a time (once cleared by MBS), Elevate HOB during feed, Other (monitor nutritional intake and pulmonary status.) Dysphagia Evaluation Summary: Pt is able to tolerate pureed with nectar thicken liquids at bedside. However ocassional cough observed after swallow may indicate aspiration. Continue NPO status for meals until MBS to determine if aspiration is occurring. Meds can be given orally in pureed. Small ice chips for hydration. Results given verbally to nurse charge rn and to PCP via chart. NEUROLOGIST to follow up. Recommendations: Modified Barium Swallow (to determine) - Recommendations Diet Consistency: Other (pureed for medication only) Liquids: Other (ice chips)
[2018-05-07] MEDS ORDERED: methylPREDNISolone NA SUCC 40 MG/1 ML VIAL IVPUSH SCH (10:00)
[2018-05-07] MEDS ORDERED: CHOLECALCIFEROL (VIT D3) 1,000 UNIT (25 MCG) TABLET PO SCH (10:00)
[2018-05-07] MEDS ORDERED: ASPIRIN 81 MG CHEWABLE TABLETS PO SCH (10:00)
[2018-05-07] MEDS: PANTOPRAZOLE 40 MG TABLET (FP) PO SCH ×2 (10:12→18:06)
[2018-05-07] MEDS: LACTOBACILLUS ACIDOPHILUS 1 TABLET PO SCH (10:12)
[2018-05-07] MEDS: APIXABAN 5 MG TABLET PO SCH ×2 (10:13→23:04)
--- NOTE | 2018-05-07 10:31 | PN ---
Teaching Attending Note Name of Resident: Chance Lewis ATTENDING PHYSICIAN STATEMENT I saw and evaluated the patient. I reviewed the resident's note and discussed the case with the resident. I agree with the resident's findings and plan as documented. SUBJECTIVE:asymptomatic. pt is more alert today. denies CP, SOB, fevers, chills , N/V/C/D OBJECTIVE: Last Vital Signs Temp Pulse Resp BP Pulse Ox 97.7 F 76 18 133/76 98 05/07/18 08:39 05/07/18 08:39 05/07/18 08:39 05/07/18 08:39 05/06/18 22:00 General alert, slow to respond however able to respond to questions appropriately HEENT dry mucosa CV S1 S2 RRR no murmur/rub/gallop Lungs CTA anteriorly, ASSESSMENT AND PLAN: 82yo M with PMH mental retardation, CAD, HTN, anxiety presented to the ER with bloody diarrhea and respiratory distress. He was found to be in acute hypoxic respiratory distress and severely dehydrated with a AGMA 1. Acute hypoxic respiratory failure- due to COPD exacerbation. currently saturating 97% on 2L NC. repeat CXR showing Bibasilar infiltrates which may be from initial PNA that was not as well appreciated as pt was dehydrated on presentation. cont inhalers and nebs. on medrol daily. ID and pulmonary on board. 2. severe Sepsis due to suspected PNA and colitis-sterocolitis seen on CT. afebrile, leukocytosis trending down. infiltrates seen on CXR which were not appreciated on admission CXR but may be in part to dehydration. will d/w ID about cont vs adjusting abx. swallow re-assessed since mental status improved. will start low dose IVF while NPO until MBS can be done. on vanco/aztreonam/ flagyl (PCN allergy) day 6. Flu negative ID on board 3. acute metabolic encephalopathy- perhaps due to polypharmacy as pt received a clonazepam on 04/25 for agitation. and now mental status is much improved. will d /c clonazepam and switch to shorter acting xanax as needed for agitation. cont neurochecks 4. Severe hypophosphatemia- Kcl po once tolerating po 5. hypokalemia- neutraphos 6. AGMA- due to lactic acidosis due to sepsis. resolved 7. L DVT- on eliquis 10mg BID x7 days then 5mg BID 8. BRBPR-no repeat episodes. Hgb stable. not a candidate for endoscopy at this time. 9. CAROLANN- due to sepsis. non-ogliuric.resolved. avoid nephrotoxic agents. monitor UOP 10. CAD 11. HTN- controlled. hold oral agents at this time 12. MR 13. DNR 14. can d/c tele monitoring ASSESSMENT AND PLAN:
[2018-05-07 10:53] LABS: ANISOCYTOSIS 0; MACROCYTOSIS 1+; PLATELET ESTIMATE NORMAL
--- NOTE | 2018-05-07 12:04 | PN ---
Progress Note, Physician History of Present Illness: PULMONARY MORE ALERT,STILL CONGESTED,+ COUGH - Current Medication List Current Medications: Active Medications Albuterol Sulfate (Ventolin 0.083% Nebulizer Soln -) 1 amp NEB Q4H PRN PRN Reason: SHORT OF BREATH/WHEEZING Apixaban (Eliquis -) 10 mg PO BID COUNT INCLUDES THE [facility] Last Admin: 05/07/18 10:13 Dose: 10 mg Aspirin (Asa -) 81 mg PO DAILY GI Last Admin: 05/07/18 10:13 Dose: 81 mg Cholecalciferol (Vitamin D3 -) 1,000 unit PO DAILY GI Last Admin: 05/07/18 10:13 Dose: 1,000 unit Clonazepam (Klonopin -) 0.5 mg PO Q12H PRN PRN Reason: AGITATION Last Admin: 05/05/18 11:51 Dose: 0.5 mg Vancomycin HCl (Vancomycin (Pre-Docked)) 1,000 mg in 250 mls @ 200 mls/hr IVPB Q24H GI; Protocol Last Admin: 05/06/18 14:48 Dose: 200 mls/hr Aztreonam 1 gm/ Dextrose 50 mls @ 100 mls/hr IVPB Q12H GI; Protocol Last Admin: 05/07/18 01:25 Dose: 100 mls/hr Metronidazole (Flagyl 500mg Premixed Ivpb -) 500 mg in 100 mls @ 100 mls/hr IVPB Q8H-IV GI Last Admin: 05/07/18 10:14 Dose: 100 mls/hr Potassium Phosphate 30 mm/ (Dextrose) 510 mls @ 85 mls/hr IVPB ONCE ONE Stop: 05/07/18 15:29 Last Admin: 05/07/18 09:33 Dose: 85 mls/hr Lactobacillus Acidophilus (Bacid -) 1 tab PO DAILY COUNT INCLUDES THE [facility] Last Admin: 05/07/18 10:12 Dose: 1 tab Methylprednisolone Sodium Succinate (Solu-Medrol -) 30 mg IVPUSH DAILY COUNT INCLUDES THE [facility] Last Admin: 05/07/18 10:13 Dose: 30 mg Pantoprazole Sodium (Protonix -) 40 mg PO DAILY COUNT INCLUDES THE [facility] Last Admin: 05/07/18 10:12 Dose: 40 mg Quetiapine Fumarate (Seroquel -) 25 mg PO HS COUNT INCLUDES THE [facility] Last Admin: 05/06/18 22:26 Dose: Not Given Venlafaxine HCl (Effexor -) 37.5 mg PO BID GI Last Admin: 05/07/18 09:34 Dose: 37.5 mg - Objective Vital Signs: Vital Signs Temperature 97.7 F 05/07/18 08:39 Pulse Rate 76 05/07/18 08:39 Respiratory Rate 18 05/07/18 08:39 Blood Pressure 133/76 05/07/18 08:39 O2 Sat by Pulse Oximetry (%) 98 05/06/18 22:00 Constitutional: Yes: Calm, Thin Eyes: Yes: WNL HENT: Yes: WNL Neck: Yes: WNL Cardiovascular: Yes: Pulse Irregular, S1, S2 Respiratory: Yes: Cough, Rhonchi (SCATTERED NILDA RHONCHI) Gastrointestinal: Yes: Normal Bowel Sounds, Soft Extremities: Yes: WNL Edema: No Labs: CBC, BMP 05/07/18 05:35 05/07/18 05:35 INR, PTT INR 1.18 (0.83-1.09) H 05/02/18 08:42 Laboratory Tests 05/06/18 11:45 ABG pH 7.40 ABG pCO2 at Pt Temp 48.3 H ABG pO2 at Pt Temp 104 ABG HCO3 29.6 H ABG O2 Sat (Measured) 98.5 H Oxygen Flow Rate 3l - ....Imaging Chest X-ray: Report Reviewed, Image Reviewed Assessment/Plan ASSESSMENT AND PLAN: Acute Hypoxic Respiratory Failure improving UTI r/o Pneumonia Severe Sepsis Acute Kidney Injury Lactic Acidosis Acute COPD Exacerbation r/o GI Bleed HTN Mental Retardation - antibiotics as per id - IVF - monitor urine output, creatinine - medrol daily - inhaled bronchodilators - protonix - DVT prophylaxis - modified barium swallow DR FRANKLIN
[2018-05-07] MEDS ORDERED: DEXTROSE 5%-0.45% SALINE 1,000 ML IV SCH ×3 (12:45→21:34)
--- NOTE | 2018-05-07 12:59 | PN ---
Progress Note, Physician History of Present Illness: MORE AWAKE AND RESPONSIVE OFFERS NO COMPLAINTS AFEBRILE - Current Medication List Current Medications: Active Medications Albuterol Sulfate (Ventolin 0.083% Nebulizer Soln -) 1 amp NEB Q4H PRN PRN Reason: SHORT OF BREATH/WHEEZING Alprazolam (Xanax -) 0.25 mg PO BID [facility] Apixaban (Eliquis -) 10 mg PO BID [facility] Last Admin: 05/07/18 10:13 Dose: 10 mg Aspirin (Asa -) 81 mg PO DAILY GI Last Admin: 05/07/18 10:13 Dose: 81 mg Cholecalciferol (Vitamin D3 -) 1,000 unit PO DAILY GI Last Admin: 05/07/18 10:13 Dose: 1,000 unit Vancomycin HCl (Vancomycin (Pre-Docked)) 1,000 mg in 250 mls @ 200 mls/hr IVPB Q24H GI; Protocol Last Admin: 05/06/18 14:48 Dose: 200 mls/hr Aztreonam 1 gm/ Dextrose 50 mls @ 100 mls/hr IVPB Q12H GI; Protocol Last Admin: 05/07/18 01:25 Dose: 100 mls/hr Metronidazole (Flagyl 500mg Premixed Ivpb -) 500 mg in 100 mls @ 100 mls/hr IVPB Q8H-IV GI Last Admin: 05/07/18 10:14 Dose: 100 mls/hr Potassium Phosphate 30 mm/ (Dextrose) 510 mls @ 85 mls/hr IVPB ONCE ONE Stop: 05/07/18 15:29 Last Admin: 05/07/18 09:33 Dose: 85 mls/hr Dextrose/Sodium Chloride (D5-1/2ns -) 1,000 mls @ 75 mls/hr IV ASDIR GI Lactobacillus Acidophilus (Bacid -) 1 tab PO DAILY [facility] Last Admin: 05/07/18 10:12 Dose: 1 tab Methylprednisolone Sodium Succinate (Solu-Medrol -) 30 mg IVPUSH DAILY [facility] Last Admin: 05/07/18 10:13 Dose: 30 mg Pantoprazole Sodium (Protonix -) 40 mg PO DAILY [facility] Last Admin: 05/07/18 10:12 Dose: 40 mg Quetiapine Fumarate (Seroquel -) 25 mg PO HS [facility] Last Admin: 05/06/18 22:26 Dose: Not Given Venlafaxine HCl (Effexor -) 37.5 mg PO BID GI Last Admin: 05/07/18 09:34 Dose: 37.5 mg - Objective Vital Signs: Vital Signs Temperature 97.7 F 05/07/18 08:39 Pulse Rate 76 05/07/18 08:39 Respiratory Rate 18 05/07/18 08:39 Blood Pressure 133/76 05/07/18 08:39 O2 Sat by Pulse Oximetry (%) 98 05/06/18 22:00 Constitutional: Yes: No Distress, Cachectic Cardiovascular: Yes: Regular Rate and Rhythm, S1, S2 Respiratory: Yes: Diminished Gastrointestinal: Yes: Normal Bowel Sounds, Soft. No: Tenderness Labs: CBC, BMP 05/07/18 05:35 05/07/18 05:35 INR, PTT INR 1.18 (0.83-1.09) H 05/02/18 08:42 Assessment/Plan SEPSIS EXACERBATION COPD R/O HCAP LEUKOCYTOSIS LACTIC ACIDOSIS RESOLVED AZOTEMIA ?UTI PCN ALLERGY CONTINUE EMPIRIC VANCOMYCIN/ AZTREONAM/ FLAGYL DAY #6
[2018-05-07] MEDS ORDERED: ALPRAZolam 0.25 MG TABLET PO SCH (13:00)
--- NOTE | 2018-05-07 13:04 | PN ---
Physical Exam: SUBJECTIVE: Patient seen and examined at bedside. no acute events overnight. sat 99% on NRB, weaned to 3LNC. There is no evidence of GI bleed at this time, no blood in diapers, no andie bleeding, H/H has remained stable. +normal BMs lethargic but much more arousable today to verbal and physical stimulation. AOX2 -3. NPO for aspiration concern. OBJECTIVE: Vital Signs Period Temp Pulse Resp BP Sys/Linder Pulse Ox Last 24 Hr 97.5 F-99.2 F 74-80 18-20 111-133/63-76 98-98 GENERAL: alert, slow to respond however able to respond to questions appropriately, AOX2-3 HEAD: NCAT EYES: PERRL, extraocular movements intact, sclera anicteric, conjunctiva clear. No ptosis. ENT: nares patent, oropharynx clear without exudates, dry MM NECK: Trachea midline, full range of motion, supple. LUNGS: CTA anteriorly. diminished breath sounds at bases HEART: RRR, S1, S2 without murmur, rub or gallop. ABDOMEN: Soft, NTND, normoactive bowel sounds, no guarding, no rebound, no hepatosplenomegaly, no masses. EXTREMITIES: 2+ pulses, warm, well-perfused, no edema. NEUROLOGICAL: lethargic but much more arousable. no facial drooping. strength 3- 4/5 in UE and LE, sensation intact SKIN: Warm, dry, normal turgor, no rashes or lesions noted Laboratory Results - last 24 hr 05/06/18 05/07/18 05/07/18 14:20 01:33 05:35 WBC RBC Hgb Hct MCV MCH MCHC RDW Plt Count MPV Absolute Neuts (auto) Neutrophils % Neutrophils % (Manual) Band Neutrophils % Lymphocytes % Lymphocytes % (Manual) Monocytes % Monocytes % (Manual) Eosinophils % Eosinophils % (Manual) Basophils % Basophils % (Manual) Myelocytes % (Man) Promyelocytes % (Man) Blast Cells % (Manual) Nucleated RBC % Metamyelocytes Hypochromia Platelet Estimate Platelet Comment Polychromasia Poikilocytosis Anisocytosis Microcytosis Macrocytosis PTT (Actin FS) 34.7 Sodium 144 Potassium 3.7 Chloride 109 H Carbon Dioxide 31 Anion Gap 4 L BUN 22 H Creatinine 0.5 L Creat Clearance w eGFR 158.42 POC Glucometer 76 Random Glucose 145 H Calcium 7.7 L Phosphorus 3.0 Magnesium 2.0 05/07/18 05/07/18 05/07/18 05:35 05:35 06:25 WBC 12.8 H RBC 4.20 Hgb 14.7 Hct 41.9 MCV 99.8 H MCH 35.0 H MCHC 35.0 RDW 13.3 Plt Count 171 MPV 10.3 Absolute Neuts (auto) 10.1 H Neutrophils % 78.9 Neutrophils % (Manual) 78.9 Band Neutrophils % 0.0 Lymphocytes % 14.4 D Lymphocytes % (Manual) 14.7 D Monocytes % 6.3 Monocytes % (Manual) 4 Eosinophils % 0.2 D Eosinophils % (Manual) 0.0 Basophils % 0.2 D Basophils % (Manual) 0.0 Myelocytes % (Man) 0 Promyelocytes % (Man) 0 D Blast Cells % (Manual) 0 Nucleated RBC % 0 Metamyelocytes 2 D Hypochromia 0 Platelet Estimate Normal Platelet Comment No clumping noted Polychromasia 0 Poikilocytosis 2+ Anisocytosis 0 Microcytosis 0 Macrocytosis 1+ PTT (Actin FS) Sodium 145 Potassium 3.5 Chloride 108 H Carbon Dioxide 32 Anion Gap 5 L BUN 20 H Creatinine 0.6 Creat Clearance w eGFR 128.36 POC Glucometer 73 Random Glucose 70 L Calcium 7.6 L Phosphorus 2.1 L Magnesium 1.9 Active Medications Generic Name Dose Route Start Last Admin Trade Name Freq PRN Reason Stop Dose Admin Albuterol Sulfate 1 amp 05/02/18 03:22 Ventolin 0.083% Nebulizer Soln - NEB Q4H PRN SHORT OF BREATH/WHEEZING Alprazolam 0.25 mg 05/07/18 13:00 Xanax - PO BID GI Apixaban 10 mg 05/04/18 22:00 05/07/18 10:13 Eliquis - PO 10 mg BID GI Administration Aspirin 81 mg 05/07/18 10:00 05/07/18 10:13 Asa - PO 81 mg DAILY GI Administration Cholecalciferol 1,000 unit 05/07/18 10:00 05/07/18 10:13 Vitamin D3 - PO 1,000 unit DAILY GI Administration Vancomycin HCl 1,000 mg in 250 mls @ 200 mls/hr 05/02/18 13:15 05/06/18 14:48 Vancomycin (Pre-Docked) IVPB 200 mls/hr Q24H GI Administration Protocol Aztreonam 1 gm/ Dextrose 50 mls @ 100 mls/hr 05/02/18 13:15 05/07/18 01:25 IVPB 100 mls/hr Q12H GI Administration Protocol Metronidazole 500 mg in 100 mls @ 100 mls/hr 05/02/18 13:15 05/07/18 10:14 Flagyl 500mg Premixed Ivpb - IVPB 100 mls/hr Q8H-IV GI Administration Potassium Phosphate 30 mm/ 510 mls @ 85 mls/hr 05/07/18 09:30 05/07/18 09:33 Dextrose IVPB 05/07/18 15:29 85 mls/hr ONCE ONE Administration Dextrose/Sodium Chloride 1,000 mls @ 75 mls/hr 05/07/18 12:45 D5-1/2ns - IV ASDIR GI Lactobacillus Acidophilus 1 tab 05/06/18 13:00 05/07/18 10:12 Bacid - PO 1 tab DAILY GI Administration Methylprednisolone Sodium Succinate 30 mg 05/07/18 10:00 05/07/18 10:13 Solu-Medrol - IVPUSH 30 mg DAILY GI Administration Pantoprazole Sodium 40 mg 05/06/18 13:00 05/07/18 10:12 Protonix - PO 40 mg DAILY GI Administration Quetiapine Fumarate 25 mg 05/03/18 22:00 05/06/18 22:26 Seroquel - PO Not Given HS GI Venlafaxine HCl 37.5 mg 05/03/18 10:00 05/07/18 09:34 Effexor - PO 37.5 mg BID GI Administration 04/30 US carotids: left moderate to large plaque (6mm thickness) internal carotid artery with 50-69% stenosis [id number] CT/ABDOMEN & PELVIS CT W/O CONTR [id number] CT/CHEST CT WITHOUT CONTRAST INDICATION: Cough, GI bleed. TECHNIQUE: Helical images of the chest, abdomen and pelvis were obtained noncontrast . COMPARISON: 01/27/2016 FINDINGS: LUNGS: Discoid atelectasis present at the left base. Dependent atelectasis noted at the left base. There is elevation of the left diaphragm. Discoid atelectasis present at the right upper lobe. No suspicious lung nodules seen. No endobronchial lesions noted. PLEURA: No pleural effusions or pneumothorax seen. MEDIASTINUM: No pathologic adenopathy was appreciated. CARDIAC: The root of the aorta is mildly dilated measuring 4 cm. Vascular calcifications noted including coronary. The heart is normal size. No pericardiac effusion noted. Mediastinal shift to the right is present. LIVER: Negative. GALLBLADDER: Gallstone suspected. No pericholecystic fluid identified. BILIARY DUCTS: Pneumobilia is present, correlate with instrumentation. PANCREAS: Imaging is limited. No focal masses were appreciated. SPLEEN: Not visualized ADRENALS: Bulky left adrenal KIDNEYS: Multiple cysts noted on the right kidney with a lower pole dominant cyst that shows mural calcifications unchanged. No hydronephrosis seen. The left kidney shows a hyperdense cystic-like structure within the upper pole measuring 2.9 cm which appears unchanged from prior imaging. Correlate with ultrasound. AORTA: The abdominal aorta appears normal caliber with minimal calcifications noted. Iliofemoral's appear ectatic. LYMPH NODES: Negative. BOWEL: There is thickening of the rectal wall with a large amount of stool suggesting stercoral colitis. The rectum is distended with air. Underlying proctitis not excluded. No pneumatosis present. Similar findings were noted on prior imaging. The stomach is distended with air and fluid. No pneumatosis is identified. No free peritoneal air or fluid is seen. PELVIS: Nelson catheter noted in place. Likely bladder cyst on the left is again noted. Streak artifacts from right hip prostheses create streak artifacts. OTHER: Demineralization noted. Spondylotic changes noted of the spine. No aggressive bone lesions noted. Mild scoliosis seen. Motion artifact degrading imaging of the ribs. Preliminary dictation was generated by the on-call radiologist at the time of this procedure. IMPRESSION: Marked elevation of the left diaphragm as discussed above. There is dilatation of the stomach containing air and fluid with no pneumatosis identified. There is thickening of the rectal wall suggesting stercoral colitis, underlying proctitis not excluded. Similar findings noted on prior imaging. Right renal cyst with calcifications seen previously. Incidentally, nonobstructing stone within the lower pole of the right kidney was visualized. Questionable complex cyst within the upper pole of the left kidney. Correlate with ultrasound imaging. Pneumobilia, correlate with prior instrumentation. Cholelithiasis seen previously. Likely bladder diverticulum with a Nelson catheter in place, seen previously. Additional comments noted above. Duplex of LE 05/02/18 shows: L side thrombus is identified within the popliteal and posterior tibial veins. The common and superficial femoral veins are patent. ASSESSMENT/PLAN: 80 yo M w/ PMHx of dementia/mental retardation, anxiety, HTN, COPD (2-3L O2), CAD, GERD, L carotid stenosis, and recently admitted for fall and UTI, BIBEMS from [facility] for evaluation of bloody diarrhea, vomiting and respiratory distress, found to be in acute hypoxic respiratory distress and severely dehydrated with a AGMA # Severe sepsis 2/2 recurrent UTI? and suspected aspiration PNA and colitis- sterocolitis seen on CT, c/b Acute hypoxic respiratory failure 2/2 COPD exacerbation - improving. -Febrile, tachycardic, tachypneic at presentation to ED -UA postive for UTI, Ucx enterococcus avium pansensitive -CXR no sign of acute chest process, No infiltrate seen on CT noted above - repeat CXR 05/06/18: Bibasilar infiltrates which may be from initial PNA that was not as well appreciated as pt was dehydrated on presentation -remains afebrile and leukocytosis improving. Lactic acidosis and diarrhea resolved currently saturating 91% 3L NC. -ID consult (Dr. Sheffield) -s/p Vanc and Flagyl x1 in ED. s/p Meropenam x1 on floors -empiric vanc/flagyl/aztreonam day 6, ID recs appreciated. (PCN allergic), will d/w ID about transitioning to PO -poor candidate for BiPAP given mental status and history of vomiting, however saturating well, and successfully transitioned from BIPAP to Venti Mask 05/02/18 , per ICU team. currently satting well 91% on 3L NC, which is baseline. if needs increased Vent/O2 support consider [id number]. -CT A/P - +colitis-sterocolitis, noted above -C. diff, Flu, stool cx negative -IV Solumedrol 30 mg qd, can transition to po at dc -Albuterol 0.083% nebs PRN -pre/post joseph -speech swallow eval, NPO except meds for aspiration concern , MBS #LLE DVT -Duplex of LE 3/21/19 shows: L side thrombus is identified within the popliteal and posterior tibial veins. The common and superficial femoral veins are patent. here is no evidence of GI bleed at this time, no blood in diapers, no andie bleeding and second FOBT neg, H/H has remained stable, patient was started on Heparin gtt for DVT. -s/p Heparin drip -on eliquis 10mg BID x7 days then 5mg BID #acute metabolic encephalopathy- possibly 2/2 polypharmacy as pt received a clonazepam on 04/25 for agitation. and now mental status is much improved. will d /c clonazepam and switch to shorter acting xanax as needed for agitation. cont neurochecks -if still lethargic can decrease seroquel to 12.5 #BRBPR - appears to be resolved. no repeat episodes. H/H stable, not a candidate for endoscopy at this time. +colitis-sterocolitis, noted above on CT Initial FOBT was positive. Second FOBT was negative. monitor H/H c diff neg dcd IV Protonix gtt, as does not appear to be an upper GI bleed Dilated bowel seen on CT appears to be similar to prior CT in 2016. GI consult (Dr. Perkins) As per EMR, patient had gastric volvulus in 2016, was managed conservatively Last EGD/Colonoscopy unknown -Surgery contacted by GI - per his note if persistently vomiting will need NGT and [facility] #AGMA- 2/2 lactic acidosis 2/2 sepsis. resolved w/ IVF #Elevated troponin -0.04>>0.07>>0.06>>0.03 -Stop trending #CAROLANN 2/2 sepsis - Cr 1.4....0.6, resolved w/ IVF, back at base line Cr ~.7 -monitor UOP -dc nelson # Dementia/MR and anxiety: Quetiapine 25 mg PO HS ; Venlafaxine 37.5 mg PO BID ; switch clonazePAM 0.5 mg PO BID to xanax as shorter half life may help w/ episodes of lethargy. If still lethargic can decrease seroquel to 12.5 # HTN - controlled Hold BP meds. # Hx of Bradycardia Last admission, his rate dropped to 30s at night without prolonged pauses and APCs # CAD resume ASA 81 daily # Carotid Stenosis -USG of carotids done in 04/30 with left carotid stenosis 50-60% # GERD Protonix # FEN D5 / NS 75cc/hr replete prn NPO except meds, f/u MBS # Prophylaxis DVT: eliquis 10mg BID x7 days then 5mg BID GI: c/w protonix PO 40 for ppx in setting of steroid use and GERD bacid for c diff ppx while on abx #Code Status: DNR. Daughter agrees for intubation if required. Need to clarify more about code status. Dispo can d/c tele monitoring, transfer to M/S -pre/post -MBS Visit type - Emergency Visit Emergency Visit: Yes ED Registration Date: 05/02/18 Care time: The patient presented to the Emergency Department on the above date and was hospitalized for further evaluation of their emergent condition. - New Patient This patient is new to me today: Yes Date on this admission: 05/07/18 - Critical Care Critical Care patient: No
[2018-05-07] MEDS: VANCOMYCIN 1 GRAM (PRE-DOCKED) 1,000 MG/250 ML BAG IVPB SCH (14:37)
--- NOTE | 2018-05-07 15:39 | PN.GI ---
GI Progress Note Subjective: No acute events Patient awake on NC O2 now Denies abdominal pain No vomiting One loose BM yesterday per nursing. C. Diff negative - Objective Vital Signs: Vital Signs Temperature 99.2 F 05/07/18 13:47 Pulse Rate 65 05/07/18 13:47 Respiratory Rate 22 H 05/07/18 13:47 Blood Pressure 125/68 05/07/18 13:47 O2 Sat by Pulse Oximetry (%) 98 05/06/18 22:00 Constitutional: Calm Eyes: No: Sclera Icterus Cardiovascular: Yes: Regular Rate and Rhythm Respiratory: Yes: Diminished (At bases bilaterally) Gastrointestinal Inspection: No: Distention ...Auscultate: Yes: Normoactive Bowel Sounds ...Palpate: Yes: Hepatomegaly, Soft. No: Tenderness ...Percussion: No: Tympanitic Edema: No (No LE edema) Neurological: Yes: Alert, Confusion Labs: CBC, BMP 05/07/18 05:35 05/07/18 05:35 INR, PTT INR 1.18 (0.83-1.09) H 05/02/18 08:42 Hepatic Panel Total Bilirubin 0.5 mg/dL (0.2-1) 05/04/18 05:30 AST 14 U/L (15-37) L 05/04/18 05:30 ALT 9 U/L (13-61) L 05/04/18 05:30 Alkaline Phosphatase 59 U/L (45-117) 05/04/18 05:30 Albumin 2.6 g/dl (3.4-5.0) L 05/04/18 05:30 Problem List - Problems (1) Rectal bleeding Assessment/Plan: No overt bleeding ? stercoral colitis If family wants invasive testing flexible sigmoidoscopy could be undertaken when medically optimized however given tenuous respiratory status, would opt for conservative measures MiraLAX 17g daily and avoidance of fecal retention Will sign off. Recall as needed Code(s): K62.5 - HEMORRHAGE OF ANUS AND RECTUM (2) Diarrhea Code(s): R19.7 - DIARRHEA, UNSPECIFIED (3) Bowel obstruction Code(s): K56.60 - UNSPECIFIED INTESTINAL OBSTRUCTION * DO NOT USE * Qualifiers: Intestinal obstruction type: unspecified
[2018-05-07] MEDS ORDERED: HEPARIN NA (PORCINE) 5,000 UNITS/ML 1ML VIAL IVPUSH PRN ×2 (18:04)
[2018-05-07] MEDS ORDERED: ALBUTEROL SO4 0.083% IH SOL 2.5 MG/3 ML VIAL.NEB. NEB PRN (18:04)
[2018-05-07] MEDS: MUPIROCIN 2% TOPICAL OINTMENT FOR DECOLONIZATION NS SCH (18:08)
[2018-05-07] MEDS ORDERED: QUEtiapine FUMARATE 25 MG TABLET (FP) PO SCH (22:00)
[2018-05-07] MEDS: ALPRAZolam 0.25 MG TABLET PO SCH (23:04)
[2018-05-07] MEDS: DOCUSATE SODIUM 100 MG CAPSULE (FP) PO SCH (23:04)
[2018-05-08] MEDS ORDERED: AZTREONAM 1 GM in DEXTROSE 5%-WATER - 50 ML IVPB SCH (01:15)
[2018-05-08] MEDS ORDERED: PT OWN MED DRAWER 7, Y5N ONE ×2 (01:30→12:16)
[2018-05-08 07:17] LABS: HEMATOCRIT 41.1 % (35.4-49); HEMOGLOBIN 14.1 GM/dL (11.7-16.9); MCH 34.5 pg (25.7-33.7); MCHC 34.4 g/dl (32.0-35.9); MEAN CELL VOLUME 100.3 fl (80-96); MEAN PLT VOLUME 9.9 fl (7.5-11.1); PLATELET COUNT 189 K/MM3 (134-434); RDW 13.2 % (11.9-15.9); WHITE BLOOD COUNT 11.4 K/mm3 (4.0-10.0)
[2018-05-08 07:35] LABS: ANION GAP 5 MMOL/L (8-16); BLOOD UREA NITROGEN 23 mg/dL (7-18); CALCIUM 7.6 mg/dL (8.5-10.1); CHLORIDE 105 mmol/L (98-107); CO2 30 mmol/L (21-32); CREATININE 0.6 mg/dL (0.55-1.3); GLUCOSE,RANDOM 221 mg/dL (74-106); MAGNESIUM 1.8 mg/dL (1.8-2.4); PHOSPHOROUS 2.6 mg/dL (2.5-4.9); POTASSIUM 3.8 mmol/L (3.5-5.1); SODIUM 140 mmol/L (136-145)
[2018-05-08] MEDS: DOCUSATE SODIUM 100 MG CAPSULE (FP) PO SCH (09:45)
[2018-05-08] MEDS: ALPRAZolam 0.25 MG TABLET PO SCH (09:45)
[2018-05-08] MEDS: APIXABAN 5 MG TABLET PO SCH (09:45)
[2018-05-08] MEDS ORDERED: ASPIRIN 81 MG CHEWABLE TABLETS PO SCH (10:00)
[2018-05-08] MEDS ORDERED: POLYETHYLENE GLYCOL 3350 119 GM BTL PO SCH (10:00)
[2018-05-08] MEDS ORDERED: LACTOBACILLUS ACIDOPHILUS 1 TABLET PO SCH (10:00)
[2018-05-08] MEDS ORDERED: CHOLECALCIFEROL (VIT D3) 1,000 UNIT (25 MCG) TABLET PO SCH (10:00)
[2018-05-08] MEDS ORDERED: methylPREDNISolone NA SUCC 40 MG/1 ML VIAL IVPUSH SCH (10:00)
[2018-05-08] MEDS ORDERED: PANTOPRAZOLE 40 MG TABLET (FP) PO SCH (10:00)
--- NOTE | 2018-05-08 10:00 | PN ---
Progress Note, MONUMENT LETTERER - Note Progress Note: MBS (-) aspiration with delayed emptying. Pt on puree/thin liquids. Pt feeds himself slowly. He has been congested. Last CXR 04/13,.5 developing bilateral infiltrates,. Selected Entries 05/07/18 05/07/18 05/07/18 01:00 05:00 08:39 Supper Temperature 99.2 F 97.7 F 97.7 F 05/07/18 05/07/18 05/07/18 13:47 16:30 18:15 Supper 25% Temperature 99.2 F 98.2 F 05/07/18 05/08/18 05/08/18 21:00 01:00 06:00 Supper Temperature 97.3 F L 98.1 F 97.5 F L Laboratory Tests 05/04/18 05/05/18 05/06/18 05:30 06:00 05:30 WBC 14.0 H 11.4 H 18.2 H 05/07/18 05/08/18 05:35 06:00 WBC 12.8 H 11.4 H Sleepy, arousable briefly. Responsive cough with thin liquids clinically. (-) aspiration during MBS White patches on tongue and inside cheeks-r/o thrush REC- [facility] thick liquid for now. f/u pulmonary r/o thrush/treatment?
--- NOTE | 2018-05-08 12:36 | PN ---
Progress Note, Physician History of Present Illness: LETHARGIC TODAY OFFERS NO COMPLAINTS AFEBRILE - Current Medication List Current Medications: Active Medications Albuterol Sulfate (Ventolin 0.083% Nebulizer Soln -) 1 amp NEB Q4H PRN PRN Reason: SHORT OF BREATH/WHEEZING Alprazolam (Xanax -) 0.25 mg PO BID [facility] Last Admin: 05/08/18 09:45 Dose: 0.25 mg Apixaban (Eliquis -) 10 mg PO BID [facility] Last Admin: 05/08/18 09:45 Dose: 10 mg Aspirin (Asa -) 81 mg PO DAILY [facility] Last Admin: 05/08/18 09:45 Dose: 81 mg Cholecalciferol (Vitamin D3 -) 1,000 unit PO DAILY [facility] Last Admin: 05/08/18 09:45 Dose: 1,000 unit Docusate Sodium (Colace -) 100 mg PO BID [facility] Last Admin: 05/08/18 09:45 Dose: 100 mg Aztreonam 1 gm/ Dextrose 50 mls @ 100 mls/hr IVPB Q12H GI; Protocol Last Admin: 05/08/18 02:19 Dose: 100 mls/hr Metronidazole (Flagyl 500mg Premixed Ivpb -) 500 mg in 100 mls @ 100 mls/hr IVPB Q8H-IV [facility] Last Admin: 05/08/18 09:41 Dose: 100 mls/hr Vancomycin HCl (Vancomycin (Pre-Docked)) 1,000 mg in 250 mls @ 200 mls/hr IVPB Q24H GI; Protocol Lactobacillus Acidophilus (Bacid -) 1 tab PO DAILY [facility] Last Admin: 05/08/18 09:45 Dose: 1 tab Pantoprazole Sodium (Protonix -) 40 mg PO DAILY [facility] Last Admin: 05/08/18 09:44 Dose: 40 mg Polyethylene Glycol (Miralax (For Daily Use) -) 17 gm PO DAILY [facility] Last Admin: 05/08/18 09:46 Dose: 17 gm Quetiapine Fumarate (Seroquel -) 25 mg PO HS [facility] Last Admin: 05/07/18 23:05 Dose: 25 mg Venlafaxine HCl (Effexor -) 37.5 mg PO BID [facility] Last Admin: 05/07/18 23:05 Dose: 37.5 mg - Objective Vital Signs: Vital Signs Temperature 97.8 F 05/08/18 09:00 Pulse Rate 63 05/08/18 09:00 Respiratory Rate 18 05/08/18 09:00 Blood Pressure 137/71 05/08/18 09:00 O2 Sat by Pulse Oximetry (%) 95 05/07/18 21:00 Constitutional: Yes: No Distress, Poor Hygeine Cardiovascular: Yes: Regular Rate and Rhythm, S1, S2 Respiratory: Yes: Diminished Gastrointestinal: Yes: Normal Bowel Sounds, Soft. No: Tenderness Labs: CBC, BMP 05/08/18 06:00 05/08/18 06:00 INR, PTT INR 1.18 (0.83-1.09) H 05/02/18 08:42 Assessment/Plan SEPSIS EXACERBATION COPD R/O HCAP LEUKOCYTOSIS LACTIC ACIDOSIS RESOLVED AZOTEMIA ?UTI PCN ALLERGY DAY#7 EMPIRIC VANCOMYCIN/ AZTREONAM/ FLAGYL D/C ANTIBIOTICS, OBSERVE OFF
[2018-05-08] MEDS: VENLAFAXINE HCL 37.5 MG TABLET PO SCH (13:02)
[2018-05-08] MEDS ORDERED: VANCOMYCIN 1 GRAM (PRE-DOCKED) 1,000 MG/250 ML BAG IVPB SCH (13:15)
--- NOTE | 2018-05-08 14:20 | DS ---
Physical Exam: SUBJECTIVE: Patient seen and examined at bedside. no acute events overnight. sat high 90s% on 3LNC. There is no evidence of GI bleed at this time, no blood in diapers, no andie bleeding, H/H has remained stable. +normal BMs alert, slow to respond however able to respond to questions appropriately, AOX2- 3, spoke w/ NH and pt appears to be at baseline OBJECTIVE: Vital Signs Period Temp Pulse Resp BP Sys/Linder Pulse Ox Last 24 Hr 97.3 F-98.2 F 61-82 16-18 115-137/52-77 95-100 PHYSICAL EXAM GENERAL: alert, slow to respond however able to respond to questions appropriately, AOX2-3, per NH appears to be at baseline HEAD: NCAT EYES: PERRL, extraocular movements intact, sclera anicteric, conjunctiva clear. No ptosis. ENT: nares patent, oropharynx +Thrush, MMM NECK: Trachea midline, full range of motion, supple. LUNGS: CTA anteriorly. diminished breath sounds at bases HEART: RRR, S1, S2 without murmur, rub or gallop. ABDOMEN: Soft, NTND, normoactive bowel sounds, no guarding, no rebound, no hepatosplenomegaly, no masses. EXTREMITIES: 2+ pulses, warm, well-perfused, no edema. NEUROLOGICAL: much more arousable, slow to respond however able to respond to questions appropriately, at baseline. no facial drooping. strength 3-4/5 in UE and LE, sensation intact SKIN: Warm, dry, normal turgor, no rashes or lesions noted LABS Laboratory Results - last 24 hr 05/08/18 05/08/18 06:00 06:00 WBC 11.4 H RBC 4.10 Hgb 14.1 Hct 41.1 MCV 100.3 H MCH 34.5 H MCHC 34.4 RDW 13.2 Plt Count 189 MPV 9.9 Sodium 140 Potassium 3.8 Chloride 105 Carbon Dioxide 30 Anion Gap 5 L BUN 23 H Creatinine 0.6 Creat Clearance w eGFR 128.36 Random Glucose 221 H Calcium 7.6 L Phosphorus 2.6 Magnesium 1.8 04/30 US carotids: left moderate to large plaque (6mm thickness) internal carotid artery with 50-69% stenosis [id number] CT/ABDOMEN & PELVIS CT W/O CONTR [id number] CT/CHEST CT WITHOUT CONTRAST INDICATION: Cough, GI bleed. TECHNIQUE: Helical images of the chest, abdomen and pelvis were obtained noncontrast . COMPARISON: 01/27/2016 FINDINGS: LUNGS: Discoid atelectasis present at the left base. Dependent atelectasis noted at the left base. There is elevation of the left diaphragm. Discoid atelectasis present at the right upper lobe. No suspicious lung nodules seen. No endobronchial lesions noted. PLEURA: No pleural effusions or pneumothorax seen. MEDIASTINUM: No pathologic adenopathy was appreciated. CARDIAC: The root of the aorta is mildly dilated measuring 4 cm. Vascular calcifications noted including coronary. The heart is normal size. No pericardiac effusion noted. Mediastinal shift to the right is present. LIVER: Negative. GALLBLADDER: Gallstone suspected. No pericholecystic fluid identified. BILIARY DUCTS: Pneumobilia is present, correlate with instrumentation. PANCREAS: Imaging is limited. No focal masses were appreciated. SPLEEN: Not visualized ADRENALS: Bulky left adrenal KIDNEYS: Multiple cysts noted on the right kidney with a lower pole dominant cyst that shows mural calcifications unchanged. No hydronephrosis seen. The left kidney shows a hyperdense cystic-like structure within the upper pole measuring 2.9 cm which appears unchanged from prior imaging. Correlate with ultrasound. AORTA: The abdominal aorta appears normal caliber with minimal calcifications noted. Iliofemoral's appear ectatic. LYMPH NODES: Negative. BOWEL: There is thickening of the rectal wall with a large amount of stool suggesting stercoral colitis. The rectum is distended with air. Underlying proctitis not excluded. No pneumatosis present. Similar findings were noted on prior imaging. The stomach is distended with air and fluid. No pneumatosis is identified. No free peritoneal air or fluid is seen. PELVIS: Ford catheter noted in place. Likely bladder cyst on the left is again noted. Streak artifacts from right hip prostheses create streak artifacts. OTHER: Demineralization noted. Spondylotic changes noted of the spine. No aggressive bone lesions noted. Mild scoliosis seen. Motion artifact degrading imaging of the ribs. Preliminary dictation was generated by the on-call radiologist at the time of this procedure. IMPRESSION: Marked elevation of the left diaphragm as discussed above. There is dilatation of the stomach containing air and fluid with no pneumatosis identified. There is thickening of the rectal wall suggesting stercoral colitis, underlying proctitis not excluded. Similar findings noted on prior imaging. Right renal cyst with calcifications seen previously. Incidentally, nonobstructing stone within the lower pole of the right kidney was visualized. Questionable complex cyst within the upper pole of the left kidney. Correlate with ultrasound imaging. Pneumobilia, correlate with prior instrumentation. Cholelithiasis seen previously. 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 Additional comments noted above. Duplex of LE 05/02/18 shows: L side thrombus is identified within the popliteal and posterior tibial veins. The common and superficial femoral veins are patent. HOSPITAL COURSE: Date of Admission:05/02/18 Date of Discharge: 05/08/18 80 yo M w/ PMHx of dementia/mental retardation, anxiety, HTN, COPD (2-3L O2), CAD, GERD, L carotid stenosis, and recently admitted for fall and UTI, BIBEMS from [facility] for evaluation of bloody diarrhea, vomiting and respiratory distress, found to be in acute hypoxic respiratory distress and severely dehydrated with a AGMA Admitted to ICU for Severe sepsis 2/2 recurrent UTI? and suspected aspiration PNA and colitis-sterocolitis as seen on CT, c/b Acute hypoxic respiratory failure 2/2 COPD exacerbation. Ucx pansensitive enterococcus avium, No infiltrate seen but +colitis as seen on CT noted above. repeat CXR 05/06/18: Bibasilar infiltrates which may be from initial PNA that was not as well appreciated as pt was dehydrated on presentation. +lactic acidosis that resolved w/ IVF. C. diff, Flu, stool cx negative. ID consulted (Dr. Mosher), pt tx w/ 7 day course of vanc/flagyl/aztreonam (PCN allergic), no need for PO meds at co. Pt initially required BIPAP but quickly was successfully transitioned to Venti Mask 05/02/18, per ICU team, and was further weaned down to 3L NC which is his baseline and is currently satting well high 90s. pt also tx w/ IV solumedrol and will not require further steroids at co. Of note pt was noted w/ BRBPR at presentation, Initial FOBT was positive. Second FOBT was negative. GI consulted (Dr. Griffiths). +colitis-sterocolitis, noted above on CT, Dilated bowel seen on CT appears to be similar to prior CT in 2016. pt was put on protonix gtt but then dcd as does not appear to be an upper GI bleed. Since presentation, appears to be resolved as pt has had no repeat episodes and H/H has remained stable. c diff and stool cx negative. pt not a candidate for endoscopy/colonoscopy at this time. pt told to f/u outpt w/ PCP or GI Dr. Griffiths about any possible need for future w/u w/ endoscopy/ colonoscopy. #LLE DVT -Duplex of LE 05/02/18 shows: L side thrombus is identified within the popliteal and posterior tibial veins. The common and superficial femoral veins are patent. there is no evidence of GI bleed at this time, no blood in diapers, no andie bleeding and second FOBT neg, H/H has remained stable. s/p Heparin drip -on eliquis 10mg BID x7 days (last dose 05/11/18) then will start 5mg BID for 3 months (first dose 05/12/18). #acute metabolic encephalopathy possibly 2/2 polypharmacy possibly 2/2 clonazepam for agitation - resolved. pt now mental status is much improved after we dcd home clonazepam and switched to shorter acting xanax 0.25mg bid as needed for agitation. # Dementia/MR and anxiety: Quetiapine 25 mg PO HS ; Venlafaxine 37.5 mg PO BID ; switched clonazePAM 0.5 mg PO BID to xanax 0.25mg bid as shorter half life may help w/ episodes of lethargy. #Elevated troponin 2/2 demand ischemia - resolved/downtrended -0.04>>0.07>>0.06>>0.03 #CAROLANN 2/2 sepsis - Cr 1.4....0.6, resolved w/ IVF, back at base line Cr ~.7 # Carotid Stenosis -USG of carotids done in 04/30 with left carotid stenosis 50-60% #Thrush noted on 05/08/18 - start nystatin swish swallow for 7 days. last dose on 05/14/18 #Diet: speech swallow eval w/ MBS: puree diet w/ [place] thick liquid #Code Status: DNR. Daughter agrees for intubation if required. pt stable and ready for dc to NH w/ appropriate f/u Minutes to complete discharge: 40 Discharge Summary Reason For Visit: GASTROINTESTINAL HEMORRHAGE,CHRONIC OBSTRUCTIVE Current Active Problems DVT (deep venous thrombosis) (Acute) Thrush, oral (Acute) CAD (coronary artery disease) (Chronic) COPD (chronic obstructive pulmonary disease) (Chronic) HTN (hypertension) (Chronic) Condition: Improved - Instructions Diet, Activity, Other Instructions: you came in for shortness of breath and dehydration and went to the intensive care unit due to a serious infection caused by a urinary tract infection along with a possible pneumonia due to aspiration and colitis. we gave you antibiotics and your symptoms improved. you also were having a COPD exacerbation so we gave you steroids which helped with your breathing. Also you came in with bloody diarrhea but it has now resolved and your blood levels have remained stable, please discuss with your primary care physician or Wood Cutter Dr. Griffiths on your outpatient visit about the need for an endoscopy/colonoscopy to evaluate for possible GI bleeds or issues During your stay you were found with a blood clot in the left leg. we started you on a blood thinner called eliquis. During your stay we noticed you had oral thrush due to a omar/fungal infection of the mouth, we started you on nystatin for 7 days. DIET per speech pathologist, puree diet with [place] thick liquid MEDICATIONS: -Please continue taking eliquis 10mg twice a day for 3 more days (last dose on ). we will then decrease the dose to 5mg twice a day for 90 more days/3 more months (first dose on 05/12/18). Please follow up with your primary care physician to see if you require a longer treatment -Please take Nystatin swish swallow for 7 days to treat your omar infection of the mouth. last dose on 05/14/18 -Please take miralax for constipation -We have switched your clonazepam to xanax 0.25mg twice a day because you were very tired and lethargic while taking clonazepam Please resume your home meds Please follow up with your primary care physician within 1 week REFERRALS: you can follow up with the following physicians who have seen you here: Wood Cutter Dr. Griffiths within [address] Mosher within [address] Avina within 1 week If you experience more blood in your stools, shortness of breath, fevers, chills , nausea, vomit, diarrhea, swelling or pain in your legs, chest pain, please call 911 or go to the ER Referrals: Titus Mosher MD [Staff Physician] - 1 Week Terrence Griffiths DO [Staff Physician] - 1 Week Chepe Avina MD, MD [Staff Physician] - 1 Week Disposition: HALF-WAY FACILITY - Home Medications Comprehensive Discharge Medication List: Ambulatory Orders Acetaminophen [Tylenol] 650 mg PO QID PRN 01/27/16 Aspirin [ASA -] 81 mg PO DAILY 01/27/16 Docusate Sodium [Colace -] 200 mg PO HS 01/27/16 Isosorbide Mononitrate [Imdur -] 30 mg PO DAILY 01/27/16 Omeprazole Magnesium [Prilosec] 20 mg PO DAILY 01/27/16 Quetiapine Fumarate [Seroquel -] 25 mg PO HS 01/27/16 Venlafaxine HCl ER [Effexor Xr -] 37.5 mg PO BID 01/27/16 Albuterol 0.083% Nebulizer Madeleine [Ventolin 0.083% Nebulizer Soln -] 1 amp NEB Q4H PRN #0 amp 02/02/16 Aa/Hydrolyzed Collagen, Whey [Lps Neutral Flavor Liquid] 30 ml PO TID 03/03/16 Cholecalciferol (Vitamin D3) [Vitamin D3 -] 1,000 unit PO DAILY 04/12/17 Propylene Glycol/Peg 400/Pf [Systane 0.3-0.4% Eye Drop] 2 drop OU TID 04/12/17 Alprazolam [Xanax] 0.25 mg PO BID tablet MDD .5 05/08/18 Apixaban [Eliquis -] 5 mg PO BID 90 Days #180 tablet 05/08/18 Apixaban [Eliquis -] 10 mg PO BID 3 Days #0 tablet 05/08/18 Nystatin Oral Suspension - [Nystatin Oral Susp 471128 Units/5 ML -] 500,000 units PO Q6HPO 7 Days cup 05/08/18 Polyethylene Glycol 3350 [Miralax 119 gm Btl -] 17 gm PO DAILY bottle 05/08/18 This patient is new to me today: Yes Date on this admission: 05/08/18 Emergency Visit: Yes ED Registration Date: 05/02/18 Care time: The patient presented to the Emergency Department on the above date and was hospitalized for further evaluation of their emergent condition. Critical Care patient: No - Discharge Referral Referred to [facility] No
[2018-05-08 15:29] VITALS: BMI 23.5
--- NOTE | 2018-05-08 16:03 | PN ---
Teaching Attending Note Name of Resident: Chance Lewis ATTENDING PHYSICIAN STATEMENT I saw and evaluated the patient. I reviewed the resident's note and discussed the case with the resident. I agree with the resident's findings and plan as documented. SUBJECTIVE: No complaints. No fever/chills. No chest pain/productive cough. OBJECTIVE: Afebrile, Hemodynamically Stable. Cognitively impaired, minimally interactive, responds verbally. Last Vital Signs Temp Pulse Resp BP Pulse Ox 98.1 F 71 16 128/52 L 100 05/08/18 13:31 05/08/18 13:05/08/18 13:05/08/18 13:05/08/18 10:00 HEENT - Atraumatic, Normocephalic. Heart - S1, S2, RRR Lungs - clear to auscultation. Abdomen - soft, non-tender. Bowel Sounds normal. Extremities - no edema, no calf tenderness. Neuro - Resting comfortably, rousable. ANISHA. Laboratory Results - last 24 hr 05/08/18 05/08/18 06:00 06:00 WBC 11.4 H RBC 4.10 Hgb 14.1 Hct 41.1 MCV 100.3 H MCH 34.5 H MCHC 34.4 RDW 13.2 Plt Count 189 MPV 9.9 Sodium 140 Potassium 3.8 Chloride 105 Carbon Dioxide 30 Anion Gap 5 L BUN 23 H Creatinine 0.6 Creat Clearance w eGFR 128.36 Random Glucose 221 H Calcium 7.6 L Phosphorus 2.6 Magnesium 1.8 Current Medications Generic Name Dose Route Start Last Admin Trade Name Freq PRN Reason Stop Dose Admin Albuterol Sulfate 1 amp 05/07/18 18:04 Ventolin 0.083% Nebulizer Soln - NEB Q4H PRN SHORT OF BREATH/WHEEZING Alprazolam 0.25 mg 05/07/18 22:00 05/08/18 09:45 Xanax - PO 0.25 mg BID GI Administration Apixaban 10 mg 05/07/18 22:00 05/08/18 09:45 Eliquis - PO 10 mg BID GI Administration Aspirin 81 mg 05/08/18 10:00 05/08/18 09:45 Asa - PO 81 mg DAILY GI Administration Cholecalciferol 1,000 unit 05/08/18 10:00 05/08/18 09:45 Vitamin D3 - PO 1,000 unit DAILY GI Administration Docusate Sodium 100 mg 05/07/18 22:00 05/08/18 09:45 Colace - PO 100 mg BID GI Administration Lactobacillus Acidophilus 1 tab 05/08/18 10:00 05/08/18 09:45 Bacid - PO 1 tab DAILY GI Administration Nystatin 500,000 units 05/08/18 18:00 Nystatin Oral Suspension - PO Q6HPO GI Pantoprazole Sodium 40 mg 05/08/18 10:00 05/08/18 09:44 Protonix - PO 40 mg DAILY GI Administration Polyethylene Glycol 17 gm 05/08/18 10:00 05/08/18 09:46 Miralax (For Daily Use) - PO 17 gm DAILY GI Administration Quetiapine Fumarate 25 mg 05/07/18 22:00 05/07/18 23:05 Seroquel - PO 25 mg HS GI Administration Venlafaxine HCl 37.5 mg 05/07/18 22:00 05/08/18 13:02 Effexor - PO 37.5 mg BID GI Administration Home Medications Medication Instructions Recorded Acetaminophen [Tylenol] 650 mg PO QID PRN 01/27/16 Aspirin [ASA -] 81 mg PO DAILY 01/27/16 Docusate Sodium [Colace -] 200 mg PO HS 01/27/16 Isosorbide Mononitrate [Imdur -] 30 mg PO DAILY 01/27/16 Omeprazole Magnesium [Prilosec] 20 mg PO DAILY 01/27/16 Quetiapine Fumarate [Seroquel -] 25 mg PO HS 01/27/16 Venlafaxine HCl ER [Effexor Xr -] 37.5 mg PO BID 01/27/16 Albuterol 0.083% Nebulizer Madeleine 1 amp NEB Q4H PRN #0 amp 02/02/16 [Ventolin 0.083% Nebulizer Soln -] Aa/Hydrolyzed Collagen, Whey [Lps 30 ml PO TID 03/03/16 Neutral Flavor Liquid] Cholecalciferol (Vitamin D3) 1,000 unit PO DAILY 04/12/17 [Vitamin D3 -] Propylene Glycol/Peg 400/Pf 2 drop OU TID 04/12/17 [Systane 0.3-0.4% Eye Drop] Alprazolam [Xanax] 0.25 mg PO BID tablet MDD .5 05/08/18 Apixaban [Eliquis -] 5 mg PO BID 90 Days #180 tablet 05/08/18 Apixaban [Eliquis -] 10 mg PO BID 3 Days #0 tablet 05/08/18 Nystatin Oral Suspension - 500,000 units PO Q6HPO 7 Days cup 05/08/18 [Nystatin Oral Susp 499412 Units/5 ML -] Polyethylene Glycol 3350 [Miralax 17 gm PO DAILY bottle 05/08/18 119 gm Btl -] ASSESSMENT AND PLAN: 82 year old male with cognitive impairment (resident at [facility]), HTN, Anxiety presented with shortness of breath and rectal bleeding. 1. Acute Hypoxic Respiratory Failure and Severe Sepsis secondary to Aspiration Pneumonia and resulting Acute COPD Exacerbation CXR - Bibasilar infiltrates Flu neg Completed Abx (7 days Aztreonam, Flagyl, Vanco) and Steroid courses Now comfortable on 2L O2 via NC. Afebrile, hemodynamically stable. 2. Severe Sepsis secondary to PNA and Colitis with Hematochezia CT A/P - Stercolitis. Leukocytosis resolving. Completed Abx course Evaluated by GI - No intervention recommended currently - for out-patient follow up H/H Stable. 3. Dysphagia s/p MBS - Puree diet with thin liquids 4. UTI - Urine Cx positive Enterococcus avium. Completed Abx course. 5. Acute Metabolic Encephalopathy - multifactorial, secondary to Sepsis and Polypharmacy. Mental status much improved. Clonazepam discontinued - now on Xanax prn. 6. LLE DVT - newly diagnosed, started on Eliquis. 7. CAROLANN - secondary to sepsis, resolved with IV hydration. 8. HTN - normally on Imdur - held currently due to borderline BP 9. Cognitive Impairment/Developmental Delay - continue Seroquel, Effexor, Xanax. For return to [facility]. 10. Oral thrush - started on Nystatin - for re-eval in 7 days at nursing facility. DNR Dispo - return to [facility]
[2018-05-08] MEDS ORDERED: NYSTATIN 500,000 UNITS/5 ML SUSPENSION PO SCH (18:00)
[2018-05-08 18:11] VITALS: BP 125/58; PULSE 58; TEMP 97.8
--- NOTE | 2018-05-09 09:06 | EKG ---
Test Reason : Blood Pressure : / mmHG Vent. Rate : 107 BPM Atrial Rate : 108 BPM P-R Int : 000 ms QRS Dur : 168 ms QT Int : 482 ms P-R-T Axes : 000 054 067 degrees QTc Int : 643 ms WIDE QRS RHYTHM NON-SPECIFIC INTRA-VENTRICULAR CONDUCTION BLOCK ABNORMAL ECG WHEN COMPARED WITH ECG OF 13-APR-2017 00:20, WIDE QRS RHYTHM HAS REPLACED SINUS RHYTHM VENT. RATE HAS INCREASED BY 41 BPM Confirmed by DAMON CAPUTO MD ([id number]) on 05/02/2018 10:56:22 AM Also confirmed by DAMON CAPUTO MD ([id number]), acquisition editor ROWENA BENITEZ ([id number]) on 05/09/2018 9:06:21 AM Referred By: Confirmed By:DAMON CAPUTO MD
== END 2018-05-08 19:12 | DRG 871 ==
LOC: JER 23:00 → JERBED 05-02 00:59 → JICU 05-02 07:04 → J4W 05-03 18:05 → J5S 05-07 18:04
PROVIDERS: ADMIT Internal Medicine
PROC: 5A09457 Assistance with Respiratory Ventilation, 24-96 Consecutive Hours, Continuous Positive Airway Pressure (ICD-10-PCS; principal; 2018-05-02)
PROC: 3E0F7GC Introduction of Other Therapeutic Substance into Respiratory Tract, Via Natural or Artificial Opening (ICD-10-PCS; 2018-05-02)
DX: A41.9 Sepsis, unspecified organism (principal); J96.01 Acute respiratory failure with hypoxia; J69.0 Pneumonitis due to inhalation of food and vomit; G92 Toxic encephalopathy; N39.0 Urinary tract infection, site not specified; J44.1 Chronic obstructive pulmonary disease with (acute) exacerbation; I82.432 Acute embolism and thrombosis of left popliteal vein; I82.442 Acute embolism and thrombosis of left tibial vein; N17.9 Acute kidney failure, unspecified; E87.2 Acidosis; B37.0 Candidal stomatitis; I24.8 Other forms of acute ischemic heart disease; K92.2 Gastrointestinal hemorrhage, unspecified; R64 Cachexia; F72 Severe intellectual disabilities; J98.11 Atelectasis; B95.2 Enterococcus as the cause of diseases classified elsewhere; R65.20 Severe sepsis without septic shock; K52.9 Noninfective gastroenteritis and colitis, unspecified; I65.22 Occlusion and stenosis of left carotid artery; E86.0 Dehydration; T68.XXXA Hypothermia, initial encounter; M62.49 Contracture of muscle, multiple sites; Z99.3 Dependence on wheelchair; Z68.23 Body mass index [BMI] 23.0-23.9, adult; I10 Essential (primary) hypertension; Z66 Do not resuscitate; Z88.0 Allergy status to penicillin; R29.6 Repeated falls; K21.9 Gastro-esophageal reflux disease without esophagitis; I25.10 Atherosclerotic heart disease of native coronary artery without angina pectoris; F03.90 Unspecified dementia, unspecified severity, without behavioral disturbance, psychotic disturbance, mood disturbance, and anxiety; F41.9 Anxiety disorder, unspecified; E83.39 Other disorders of phosphorus metabolism; E87.6 Hypokalemia; N28.1 Cyst of kidney, acquired; N32.89 Other specified disorders of bladder; N32.3 Diverticulum of bladder; K80.50 Calculus of bile duct without cholangitis or cholecystitis without obstruction
CPT/HCPCS: 36415; 36600; 71045-TC-FY; 71250-TC; 74150-TC; 74176-TC; 74230-TC-FY; 80048; 80053; 81003; 82150; 82272; 82375; 82436; 82550; 82803; 82962; 83036; 83050; 83605; 83690; 83735; 83880; 83986; 84100; 84133; 84300; 84484; 85025; 85027; 85610; 85730; 86850; 86900; 86901; 87040; 87045; 87046; 87086; 87186; 87324; 87449; 87804; 90670; 92611-GN; 93005; 93010; 93970-TC; 94660; 97161-GP; 99285-25; G0480; J1644; J7030

== ENCOUNTER 2018-08-28 18:16 | Emergency (ER) | payer OTHER ==
[2018-08-28 18:30] VITALS: BMI 17.5
--- NOTE | 2018-08-28 19:48 | PDOC ---
History of Present Illness - General Chief Complaint: Shortness of Breath Stated Complaint: RESPIRATORY DISTRESS Time Seen by Provider: 08/28/18 19:17 - History of Present Illness Initial Comments: Israel Damon is an 83yo man with a PMH of dementia/mental retardation, anxiety, HTN, COPD (2-3L O2), CAD, GERD, L carotid stenosis who was BIBA from [facility] with respiratory distress, AMS and weakness today. They also note that labs were drawn today showing a leukocytosis to 11.8 with a left shift. The remainder of his labs were unremarkable including TSH (2.9) and CMP. Mr Damon is unable to provide any additional information, only stating that his "nerves" are bothering him, though he is unable to clarify. Past History - Past Medical History Allergies/Adverse Reactions: Allergies Allergy/AdvReac Type Severity Reaction Status Date / Time Penicillins Allergy Verified 05/01/18 23:41 Home Medications: Ambulatory Orders Acetaminophen [Tylenol] 650 mg PO QID PRN 01/27/16 Docusate Sodium [Colace -] 200 mg PO HS 01/27/16 Isosorbide Mononitrate [Imdur -] 0.5 mg PO BID 01/27/16 Omeprazole Magnesium [Prilosec] 20 mg PO DAILY 01/27/16 Quetiapine Fumarate [Seroquel -] 25 mg PO HS 01/27/16 Cholecalciferol (Vitamin D3) [Vitamin D3 -] 1,000 unit PO DAILY 04/12/17 Propylene Glycol/Peg 400/Pf [Systane 0.3-0.4% Eye Drop] 2 drop OU TID 04/12/17 Alprazolam [Xanax] 0.25 mg PO BID tablet MDD .5 05/08/18 Nystatin Oral Suspension - [Nystatin Oral Susp 124813 Units/5 ML -] 500,000 units PO Q6HPO 7 Days cup 05/08/18 Mirtazapine [Remeron -] 15 mg PO DAILY 08/28/18 Anemia: No Asthma: No Cancer: No Cardiac Disorders: Yes (Lt carotid artery stenosis, CAD) CVA: No COPD: Yes CHF: No Dementia: Yes Diabetes: No GI Disorders: Yes (GERD) Disorders: (UTI) HTN: Yes Liver Disease: No Psychiatric Problems: Yes (depressive, anxiety) Seizures: No Thyroid Disease: No - Surgical History Abdominal Surgery: (Appendectomy) Appendectomy: Yes Cardiac Surgery: No Cholecystectomy: No Lung Surgery: No Neurologic Surgery: No Orthopedic Surgery: No - Immunization History Immunization Up to Date: (Unknown) - Suicide/Smoking/Psychosocial Hx Smoking History: Never smoked Have you smoked in the past 12 months: No Hx Alcohol Use: No Drug/Substance Use Hx: No Substance Use Type: None Hx Substance Use Treatment: No Review of Systems - Review of Systems Comments:: Pt declined to answer or could not provide due to dementia *Physical Exam - Vital Signs Last Vital Signs Temp Pulse Resp BP Pulse Ox 97.1 F L 57 L 17 106/33 L 100 08/28/18 18:28 08/28/18 18:28 08/28/18 18:28 08/28/18 18:28 08/28/18 18:28 - Physical Exam Comments: General: Very thin. Comfortable, no acute distress HEENT: PERRL, MMM, normal voice Cards: RRR, no murmur appreciated Pulm: Comfortable on room air, clear to auscultation bilaterally, good air movement over entire lung [place], no wheezing or crackles Abd: Soft, nontender, nondistended : No CVA tenderness Ext: Atraumatic. No LE edema Vasc: Extremities WWP Skin: Normal color, no rashes or lesions, no wounds Neuro: Awake, poorly responsive, CN grossly intact ED Treatment Course - LABORATORY CBC & Chemistry Diagram: 08/28/18 20:00 08/28/18 20:00 - RADIOLOGY Radiology Studies Ordered: Category Date Time Status CHEST X-RAY PORTABLE* [RAD] Stat Radiology 08/28/18 19:37 Ordered Medical Decision Making - Medical Decision Making 08/28/18 19:39 Israel Damon is an 83yo man with a PMH of dementia/mental retardation, anxiety, HTN, COPD (2-3L O2), CAD, GERD, L carotid stenosis who was BIBA from [facility] with respiratory distress, AMS and weakness today as well as leukocytosis to 11. - Does not appear to be in distress currently. Lung exam benign. Satting 100% 2L on NC - Septic workup for possible pneumonia given report from SNF - Continue supplemental O2 by NC - May need CT rather than xray as pt is difficult to roll off of his side 08/28/18 22:02 - Labs reviewed. No concerning abnormalities noted. Slight leukocytosis to 11.4 , but CXR unchanged to slightly improved from previous. No sign of pneumonia. Breathing comfortably, still satting 100%. - Trop negative. - BNP added to evaluate for possible CHF - EKG w/ HR 62, qRS widening at 174, RBBB, prolonged QTc at 515. No concerning t -wave or ST changes. Compared to EKG from 04/2018, no acute changes. - Plan to d/c back to [facility] Mr Damon there do not appear to be any acute findings on his workup 08/28/18 22:45 - BNP 3800, previously [address]42[address] - Still in no distress, breathing comfortably, lungs clear - D/c back to [facility] Discussed with Dr Lucio. Shaila Bunn PGY2 *DC/Admit/Observation/Transfer Diagnosis at time of Disposition: COPD (chronic obstructive pulmonary disease) Qualifiers: COPD type: unspecified COPD Qualified Code(s): J44.9 - Chronic obstructive pulmonary disease, unspecified - Discharge Dispostion Disposition: HOME Condition at time of disposition: Stable Decision to Admit order: No - Referrals Referrals: Levar Alegria [Primary Care Provider] - - Patient Instructions Additional Instructions: Discharge Instructions: You were seen in the emergency department for difficulty breathing at home. You had blood tests that did not show any concerning changes. Your EKG and chest xray were not significantly different from previous. You did not show any signs of breathing problems while in the emergency department. Please continue all your regular home medications. Follow up with your regular doctor within the next 2-3 days for evaluation. Seek immediate care for any worsening symptoms or any medical emergency including chest pain, difficulty breathing, or loss of consciousness. - Post Discharge Activity
[2018-08-28 20:32] VITALS: TEMP 97.7
[2018-08-28 20:35] LABS: VENOUS PC02 60.3 mmHg (41-51); VENOUS PH 7.32 (7.31-7.41)
[2018-08-28 20:39] LABS: VENOUS PO2 22.2 mmHg (30-40)
[2018-08-28 20:49] LABS: INR 1.33 (0.83-1.09); PROTHROMBIN TIME (PATIENT) 15.7 SEC (9.7-13.0)
[2018-08-28 20:53] LABS: ALBUMIN 2.9 g/dl (3.4-5.0); BILIRUBIN,TOTAL 0.7 mg/dL (0.2-1); BLOOD UREA NITROGEN 26.9 mg/dL (7-18); CALCIUM 8.5 mg/dL (8.5-10.1); CREATININE 0.8 mg/dL (0.55-1.3); POTASSIUM 3.7 mmol/L (3.5-5.1); TOT PROT 6.3 g/dl (6.4-8.2)
[2018-08-28 20:59] LABS: BASO % 0.2 % (0-2.0); EOS % 1.5 % (0-4.5); HEMATOCRIT 39.5 % (35.4-49); HEMOGLOBIN 13.2 GM/dL (11.7-16.9); LYMPH % 16.5 % (8-40); MCH 32.5 pg (25.7-33.7); MCHC 33.5 g/dl (32.0-35.9); MEAN CELL VOLUME 97.1 fl (80-96); MEAN PLT VOLUME 8.5 fl (7.5-11.1); MONO % 9.6 % (3.8-10.2); NEUT % 72.2 % (42.8-82.8); PLATELET COUNT 285 K/MM3 (134-434); RBC 4.07 M/mm3 (4.00-5.60); WHITE BLOOD COUNT 11.4 K/mm3 (4.0-10.0)
--- NOTE | 2018-08-28 22:29 | PDOC ---
Documentation entered by Francisco Javier Pepper SCRIBE, acting as scribe for Maria Esther Lucio DO. Maria Esther Lucio DO: This documentation has been prepared by the Evgeny cruz Daniel, SCRIBE, under my direction and personally reviewed by me in its entirety. I confirm that the documentation accurately reflects all work , treatment, procedures, and medical decision making performed by me. Attending Attestation - Resident Resident Name: OniShaila - ED Attending Attestation I have performed the following: I have examined & evaluated the patient, The case was reviewed & discussed with the resident, I agree w/resident's findings & plan - HPI HPI: 08/28/18 20:05 The patient is an 83 year old male with a past medical history of dementia, anxiety, HTN, COPD (2-3L home O2), CAD, GERD, and left carotid stenosis brought in today by EMS from [facility] for evaluation of shortness of breath. [facility] reports that the patient was in respiratory distress. Patient is poorly responsive but states that he feels no pain. Allergies: penicillins PCP: Levar Alegria - Physicial Exam PE: 08/28/18 20:05 Agree with the resident's physical exam. - Medical Decision Making 08/28/18 22:27 83-year-old male sent from a care home facility with an episode of shortness of breath Patient has been asymptomatic in the emergency department Labs, EKG and chest x-ray not concerning Plan for DC back to facility
[2018-08-28 22:40] LABS: N-TERMINAL BNP 3878.4 pg/ml (5-450)
[2018-08-29 01:27] VITALS: BP 137/61; PULSE 56
--- NOTE | 2018-08-29 15:19 | EKG ---
Test Reason : Blood Pressure : / mmHG Vent. Rate : 062 BPM Atrial Rate : 062 BPM P-R Int : 000 ms QRS Dur : 174 ms QT Int : 508 ms P-R-T Axes : 000 101 063 degrees QTc Int : 515 ms SINUS RHYTHM WITH 1ST DEGREE A-V BLOCK RIGHT BUNDLE BRANCH BLOCK ABNORMAL ECG WHEN COMPARED WITH ECG OF 02-MAY-2018 09:22, Confirmed by PATITO CEBALLOS, DAMON ([id number]) on 08/29/2018 3:18:39 PM Referred By: Confirmed By:DAMON CAPUTO MD
== END 2018-08-29 01:26 | disposition home or self-care (01) ==
LOC: JER 18:16
DX: J44.9 Chronic obstructive pulmonary disease, unspecified (principal); F79 Unspecified intellectual disabilities; F41.9 Anxiety disorder, unspecified; I10 Essential (primary) hypertension; I25.10 Atherosclerotic heart disease of native coronary artery without angina pectoris; K21.9 Gastro-esophageal reflux disease without esophagitis; F03.90 Unspecified dementia, unspecified severity, without behavioral disturbance, psychotic disturbance, mood disturbance, and anxiety
CPT/HCPCS: 36415; 71045-TC-FY; 80053; 82803; 83605; 83880; 84484; 85025; 85610; 85730; 87040; 93005; 93010; 99284-25